=== PATIENT | female | born 1955 | race Caucasian/White ===

== ENCOUNTER 2018-04-25 17:11 | Emergency (ER) | payer MEDICARE, MEDICAID ==
[2018-04-25 18:02] LABS: ABS Basophils 0.1 10^3/ul (0-0.2); ABS Eosinophils 0.1 10^3/ul (0-0.6); ABS Lymphocytes 1.9 10^3/ul (1.0-4.8); ABS Neutrophils 7.5 10^3/ul (1.5-7.7); ABS Nucleated RBC 0 10^3/ul; Eosinophil % 1.1 % (0-6); Hematocrit 35 % (35-47); Hemoglobin 11.8 g/dl (12.0-16.0); Lymphocyte % 17.7 % (25-47); Mean Corpuscular HGB Conc 34 g/dl (31-36); Mean Corpuscular Hemoglobin 30 pg (27-31); Mean Corpuscular Volume 89 fL (80-97); Mean Platelet Volume 9.3 um3 (7.4-10.4); Nucleated Red Blood Cells % 0; Platelet Count 120 10^3/ul (150-450); Red Cell Distribution Width 13 % (10.5-15); White Blood Count 10.6 10^3/ul (3.5-10.8)
--- NOTE | 2018-04-25 20:02 | ED ---
Psychiatric Complaint - HPI Summary HPI Summary: This is scribe Amilcar Davis documenting for attending Burak Romero MD. Patient is a 62 y/o F BIBA due to not taking medication. Patient stays at [facility] and has not been taking her medications for the past five days according to EMS. When asked why, she responds, "I forgot to buy them ". Staff called ambulance today. Patient is reported to have not been eating food as well. When patient is asked why she is here, she states "I'm here because of feeling dizzy". She also claims her father drove her to the hospital. SI and HI are denied. On triage, pain is denied and nothing is noted to aggravate/alleviate symptoms. Home medications and allergies are reviewed. - History Of Current Complaint Chief Complaint: EDMentalHealth Time Seen by Provider: 04/25/18 17:28 Hx Obtained From: Patient, EMS Onset/Duration: Lasting Days - no medication for past 5 days Timing: Days - no medication for past 5 days Severity Currently: None - pain is denied Aggravating Factor(s): Nothing Alleviating Factor(s): Nothing Has Suicidal: Denies: Thoughts Has Homicidal: Denies: Thoughts - Allergies/Home Medications Allergies/Adverse Reactions: Allergies Allergy/AdvReac Type Severity Reaction Status Date / Time No Known Allergies Allergy Verified 04/25/18 17:47 Home Medications: Home Medications Acetaminophen [Acetaminophen Extra Strength] 500 mg PO Q4H PRN 04/25/18 [ History Confirmed 04/25/18] Buspirone HCl 10 mg PO DAILY 04/25/18 [History Confirmed 04/25/18] CloZAPine TAB* 300 mg PO BEDTIME 04/25/18 [History Confirmed 04/25/18] Ferrous Sulfate [Feosol] 1 tab PO DAILY 04/25/18 [History Confirmed 04/25/18] [place] Carbonate 1 cap PO BEDTIME 04/25/18 [History Confirmed 04/25/18] Loperamide HCl [Anti-Diarrheal] 15 ml PO SEE INSTRUCTIONS PRN 04/25/18 [History Confirmed 04/25/18] Multivitamin [Daily Multiple Vitamin] 1 tab PO DAILY 04/25/18 [History Confirmed 04/25/18] Nystatin CREAM* [Nystatin Cream*] 1 applic TOPICAL Q6H 04/25/18 [History Confirmed 04/25/18] Nystatin SUSPENSION* 1 teasp PO Q6H 04/25/18 [History Confirmed 04/25/18] Oxymetazoline 0.05% NASAL SPR* [Afrin 0.05% NASAL SPRAY*] 2 spray BOTH NARES BID PRN 04/25/18 [History Confirmed 04/25/18] PMH/Surg Hx/FS Hx/Imm Hx Sensory History: Denies: Hx Legally Blind Psychiatric History: Reports: Hx Anxiety, Hx Depression Infectious Disease History: Unable to Obtain/Confirm Infectious Disease History: Denies: Traveled Outside the [place] in Last 30 Days - Family History Known Family History: Positive: Unknown - patient is a poor historian - Social History Alcohol Use: None Substance Use Type: Reports: None Smoking Status (MU): Never Smoked Tobacco Review of Systems Negative: Fever - on vitals, temperature is 98.3 F Positive: Other - decrease appetite Neurological: Other - Dizziness Positive: Other - POSITIVE: not taking medication for past five days NEGATIVE: SI, HI All Other Systems Reviewed And Are Negative: Yes Physical Exam - Summary Physical Exam Summary: Appearance: The patient is well-nourished in no acute distress and in no acute pain. Patient appears pale. Skin: The skin is warm and dry and skin color reflects adequate perfusion. HEENT: The head is normocephalic and atraumatic. The pupils are equal and reactive. The conjunctivae are clear and without drainage. Nares are patent and without drainage. Mouth reveals dry mucous membranes and the throat is without erythema and exudate. The external ears are intact. The ear canals are patent and without drainage. The tympanic membranes are intact. Neck: The neck is supple with full range of motion and non-tender. There are no carotid bruits. There is no neck vein distension. Respiratory: Chest is non-tender. Lungs are clear to auscultation and breath sounds are symmetrical and equal. Cardiovascular: Heart is regular rate and rhythm. There is no murmur or rub auscultated. There is no peripheral edema and pulses are symmetrical and equal. Abdomen: The abdomen is soft and non-tender. There are normal bowel sounds heard in all four quadrants and there is no organomegaly palpated. Musculoskeletal: There is no back tenderness noted. Extremities are non-tender with full range of motion. There is good capillary refill. There is no peripheral edema or calf tenderness elicited. Neurological: Patient is alert and oriented to person, place and time. The patient has symmetrical motor strength in all four extremities. Cranial nerves are grossly intact. Deep tendon reflexes are symmetrical and equal in all four extremities. Psychiatric: The patient has a flat affect and does not exhibit any anxiety. Triage Information Reviewed: Yes Vital Signs On Initial Exam: Initial Vitals Temp Pulse Resp BP Pulse Ox 98.3 F 83 14 158/96 99 04/25/18 17:33 04/25/18 17:33 04/25/18 17:33 04/25/18 17:33 04/25/18 17:33 Vital Signs Reviewed: Yes Diagnostics - Vital Signs Vital Signs Temp Pulse Resp BP Pulse Ox 04/25/18 17:33 98.3 F 83 14 158/96 99 - Laboratory Lab Results: Lab Results 04/25/18 04/25/18 Range/Units 17:57 17:57 WBC 10.6 (3.5-10.8) 10^3/ul RBC 3.90 L (4.00-5.40) 10^6/ul Hgb 11.8 L (12.0-16.0) g/dl Hct 35 (35-47) % MCV 89 (80-97) fL MCH 30 (27-31) pg MCHC 34 (31-36) g/dl RDW 13 (10.5-15) % Plt Count 120 L (150-450) 10^3/ul MPV 9.3 (7.4-10.4) um3 Neut % (Auto) 71.5 (38-83) % Lymph % (Auto) 17.7 L (25-47) % [place] % (Auto) 9.1 H (0-7) % Eos % (Auto) 1.1 (0-6) % Baso % (Auto) 0.6 (0-2) % Absolute Neuts (auto) 7.5 (1.5-7.7) 10^3/ul Absolute Lymphs (auto) 1.9 (1.0-4.8) 10^3/ul Absolute Monos (auto) 1.0 H (0-0.8) 10^3/ul Absolute Eos (auto) 0.1 (0-0.6) 10^3/ul Absolute Basos (auto) 0.1 (0-0.2) 10^3/ul Absolute Nucleated RBC 0 10^3/ul Nucleated RBC % 0 Sodium 142 (135-145) mmol/L Potassium 3.8 (3.5-5.0) mmol/L Chloride 111 (101-111) mmol/L Carbon Dioxide 19 L (22-32) mmol/L Anion Gap 12 H (2-11) mmol/L BUN 24 (6-24) mg/dL Creatinine 2.67 H (0.51-0.95) mg/dL Est GFR ( Amer) 21.8 (>60) Est GFR (Non-Af Amer) 18.0 (>60) BUN/Creatinine Ratio 9.0 (8-20) Glucose 107 H (70-100) mg/dL Calcium 9.4 (8.6-10.3) mg/dL Total Bilirubin 0.70 (0.2-1.0) mg/dL AST 16 (13-39) U/L ALT 8 (7-52) U/L Alkaline Phosphatase 72 (34-104) U/L Total Protein 7.1 (6.4-8.9) g/dL Albumin 4.3 (3.2-5.2) g/dL Globulin 2.8 (2-4) g/dL Albumin/Globulin Ratio 1.5 (1-3) TSH 3.10 (0.34-5.60) mcIU/mL Salicylates < 2.50 (<30) mg/dL Acetaminophen < 15 mcg/mL Serum Alcohol < 10 (<10) mg/dL Result Diagrams: 04/25/18 17:57 04/25/18 17:57 Lab Statement: Any lab studies that have been ordered have been reviewed, and results considered in the medical decision making process. Re-Evaluation - Re-Evaluation First Eval Re-Evaluation Time: 19:49 Comment: Patient was medically cleared and taken to [facility] for MHE. Course/Dx - Course Course Of Treatment: Ms. Pedraza was sent over from [place] with a concern that she not taking her medications. She was medically cleared and underwent a mental health evaluation in the flex unit. They felt that she was safe for discharge and arranged for follow-up. - Differential Dx/Clinical Impression Provider Diagnosis: Psychosis Discharge - Sign-Out/Discharge Documenting (check all that apply): Sign-Out Patient Signing out patient TO: Jersey Garvey Receiving patient FROM: Burak L Nick - Discharge Plan Disposition: HOME Patient Education Materials: Schizoaffective Disorder (ED) Referrals: Ivan KING,Jerry Cook [Medical Doctor] - (Please follow up with Tino Grace, as soon as possible.) Shimon Beckett MD [Primary Care Provider] - - Billing Disposition and Condition Disposition: Home
[2018-04-25 20:13] VITALS: BP 159/100
[2018-04-25 21:20] LABS: Lithium < 0.10 mmol/L (0.6-1.2)
== END 2018-04-25 22:04 | disposition home or self-care (01) ==
LOC: ED 17:11
DX: F29 Unspecified psychosis not due to a substance or known physiological condition (principal)
CPT/HCPCS: 36415; 80053; 80178; 80320; 80329; 84443; 85025; 93005; 99284; G0480

== ENCOUNTER 2018-04-26 08:00 | Inpatient (IN) | payer MEDICARE, BC, MEDICAID ==
--- NOTE | 2018-04-26 08:26 | ED ---
Psychiatric Complaint - HPI Summary HPI Summary: This is rbea Stallings documenting for attending Antonino Florez MD. This patient is a 62 year old F presenting to [facility] from [facility] for a MHE. Pt was seen in the ED yesterday and received a MHE before being discharged home. She has a history of chronic depression and is tearful during exam. She states she is feeling better but almost . - History Of Current Complaint Chief Complaint: EDMentalHealth Time Seen by Provider: 04/26/18 08:03 Hx Obtained From: Patient Onset/Duration: Still Present Timing: Constant Severity Initially: Moderate Severity Currently: Moderate Character: Depressed Related History: Positive For: Prior Psychiatric Issues - Allergies/Home Medications Allergies/Adverse Reactions: Allergies Allergy/AdvReac Type Severity Reaction Status Date / Time No Known Allergies Allergy Verified 04/25/18 17:47 PMH/Surg Hx/FS Hx/Imm Hx Sensory History: Denies: Hx Legally Blind Opthamlomology History: Denies: Hx Legally Blind Psychiatric History: Reports: Hx Anxiety, Hx Depression Infectious Disease History: No Infectious Disease History: Denies: Traveled Outside the [place] in Last 30 Days - Family History Known Family History: Positive: Unknown - patient is a poor historian - Social History Alcohol Use: None Substance Use Type: Reports: None Smoking Status (MU): Never Smoked Tobacco Review of Systems Negative: Fever Positive: Depressed All Other Systems Reviewed And Are Negative: Yes Physical Exam - Summary Physical Exam Summary: Appearance: Well appearing, no pain distress Skin: warm, dry, reflects adequate perfusion Head/face: normal Eyes: EOMI, BESS ENT: clear nasal discharge Neck: supple, non-tender Respiratory: CTA, breath sounds present Cardiovascular: RRR, pulses symmetrical Abdomen: non-tender, soft Bowel Sounds: present Musculoskeletal: normal, strength/ROM intact Neuro: normal, sensory motor intact, A&Ox3 Psych: flat affect, withdrawn, Triage Information Reviewed: Yes Vital Signs On Initial Exam: Initial Vitals Temp Pulse Resp BP Pulse Ox 98.5 F 75 14 150/82 100 04/26/18 08:01 04/26/18 08:01 04/26/18 08:01 04/26/18 08:01 04/26/18 08:01 Vital Signs Reviewed: Yes Diagnostics - Vital Signs Vital Signs Temp Pulse Resp BP Pulse Ox 04/26/18 08:01 98.5 F 75 14 150/82 100 - Laboratory Lab Statement: Any lab studies that have been ordered have been reviewed, and results considered in the medical decision making process. Re-Evaluation - Re-Evaluation First Eval Re-Evaluation Time: 14:15 Change: Unchanged Comment: I discussed patient care with mental health instant potato processing supervisor and they would like to admit the patient. She will be held in the flex until a bed is available in the morning. Course/Dx - Course Course Of Treatment: Patient returns after mental health evaluation performed yesterday. She was cleared been but is back already this morning. She is medically cleared given laboratories just yesterday. Mental health performed evaluation has decided to hold her overnight for reevaluation of the morning and likely admission. - Differential Dx/Clinical Impression Provider Diagnosis: Schizoaffective disorder, unspecified condition Discharge - Sign-Out/Discharge Documenting (check all that apply): Sign-Out Patient Signing out patient TO: Jersey Garvey - Awaiting admission - Discharge Plan Condition: Stable Referrals: Shimon Beckett MD [Primary Care Provider] - - Billing Disposition and Condition Condition: STABLE
[2018-04-26 22:20] LABS: Urine Appearance Clear; Urine Blood 1+ (Negative); Urine Color Straw; Urine Ketones Negative (Negative); Urine Protein Negative (Negative); Urine Red Blood Cell Trace(0-2/hpf) (Absent); Urine Specific Gravity 1.002 (1.010-1.030); Urine Urobilinogen Negative (Negative); Urine White Blood Cell 1+(6-10/hpf) (Absent)
[2018-04-26 23:37] LABS: ABS Basophils 0 10^3/ul (0-0.2); ABS Eosinophils 0.1 10^3/ul (0-0.6); ABS Lymphocytes 2.1 10^3/ul (1.0-4.8); ABS Nucleated RBC 0 10^3/ul; Eosinophil % 1.4 % (0-6); Hematocrit 35 % (35-47); Hemoglobin 12.1 g/dl (12.0-16.0); Lymphocyte % 22.8 % (25-47); Mean Corpuscular HGB Conc 34 g/dl (31-36); Mean Corpuscular Hemoglobin 30 pg (27-31); Mean Corpuscular Volume 89 fL (80-97); Mean Platelet Volume 9.5 um3 (7.4-10.4); Nucleated Red Blood Cells % 0.5; Platelet Count 121 10^3/ul (150-450); Red Blood Count 3.98 10^6/ul (4.00-5.40); Red Cell Distribution Width 13 % (10.5-15); White Blood Count 9.3 10^3/ul (3.5-10.8)
[2018-04-26 23:52] LABS: EGFR Non-African American 20.7 (>60)
[2018-04-27] MEDS ORDERED: Levofloxacin TAB* 250 MG PO ONE (00:15)
--- NOTE | 2018-04-27 01:16 | ED ---
Progress - Progress Note Progress Note: This is reba Childress documenting for Dr. Jersey Garvey MD. Pt was signed out from Dr. Florez awaiting admission. Mental health it desktop support technician worried about pts kidney function and elevated creatinine from yesterday, so asked for repeat kidney function test. Creatinine today of 2.37 is slightly lower than yesterdays, however pts last creatinine from 6 years ago was 1.7. Renal US showed renal disease which appears to be chronic. Renal US impression was echogenic kidneys bilaterally suggesting medical renal disease, small bilateral renal cysts, and no hydronephrosis. ED Physician reviewed this report and agrees. Pt was found to have UTI treated with levaquin. Pt admitted to [facility] with medical consultation for kidney function. Pt signed out to Dr. Weiner for [facility] hold. Re-Evaluation - Re-Evaluation First Eval Re-Evaluation Time: 14:15 Change: Unchanged Comment: I discussed patient care with mental health it desktop support technician and they would like to admit the patient. She will be held in the flex until a bed is available in the morning. Course/Dx - Course Course Of Treatment: Pt was signed out from Dr. Florez awaiting admission. Mental health it desktop support technician worried about pts kidney function and elevated creatinine from yesterday, so asked for repeat kidney function test. Creatinine today of 2.37 is slightly lower than yesterdays, however pts last creatinine from 6 years ago was 1.7. Renal US showed renal disease which appears to be chronic. Renal US impression was echogenic kidneys bilaterally suggesting medical renal disease, small bilateral renal cysts, and no hydronephrosis. ED Physician reviewed this report and agrees. Pt was found to have UTI treated with levaquin. Pt admitted to [facility] with medical consultation for kidney function. Pt signed out to Dr. Weiner for [facility] hold. - Diagnoses Provider Diagnoses: Schizoaffective disorder, unspecified condition Discharge - Sign-Out/Discharge Documenting (check all that apply): Patient Departure - Admit Signing out patient TO: Sha Weiner Receiving patient FROM: Antonino Florez - Discharge Plan Condition: Stable Disposition: ADMITTED TO [facility] Referrals: Shimon Beckett MD [Primary Care Provider] -
--- NOTE | 2018-04-27 07:14 | UC ---
- Progress Note Progress Note: This patient was signed out from Dr. Garvey to Dr. Weiner, awaiting MHE. MHE done by Dr. Camejo at 0909. The patient will be admitted with dx of schizoaffective disorder. Patient understands and agrees. Re-Evaluation - Re-Evaluation First Eval Re-Evaluation Time: 14:15 Change: Unchanged Comment: I discussed patient care with mental health [facility] nurse and they would like to admit the patient. She will be held in the flex until a bed is available in the morning. Course/Dx - Diagnoses Provider Diagnoses: Schizoaffective disorder, unspecified condition Discharge - Sign-Out/Discharge Documenting (check all that apply): Patient Departure - Discharge Plan Condition: Stable Disposition: ADMITTED TO [facility] Referrals: Shimon Beckett MD [Primary Care Provider] -
--- NOTE | 2018-04-27 09:05 | RAD ---
INDICATION: Acute renal failure COMPARISON: None TECHNIQUE: Longitudinal and transverse scans of the kidneys were obtained. FINDINGS: Kidneys: The kidneys are echogenic consistent with medical renal disease. No hydronephrosis or calculi are seen. There is a cyst in the upper pole on the right measuring 2.5 x 2.0 x 2.7 cm. In the mid to lower pole is a indeterminate hypoechoic structure measuring 2.7 x 1.9 x 1.8 cm. There are several tiny cystic entities in the left kidney. The right kidney measures 9.7 x 4.8 x 5.0 cm and the left kidney 9.6 x 4.0 x 5.1 cm. Other: None IMPRESSION: MEDICAL RENAL DISEASE. RENAL CYST. INDETERMINATE HYPOECHOIC STRUCTURE LOWER POLE RIGHT KIDNEY. SUGGEST 3 MONTH FOLLOW-UP OR PREFERABLY CORRELATION WITH ANY PRIOR IMAGING IF AVAILABLE.
[2018-04-27] MEDS ORDERED: Al Hydrox/Mg Hydrox/Simet LIQ* 30 ML UDC PO PRN (12:25)
[2018-04-27] MEDS ORDERED: Acetaminophen TAB* 325 MG PO PRN (12:25)
[2018-04-27] MEDS ORDERED: Loperamide LIQ* 2 MG/10 ML UDC PO PRN (12:29)
--- NOTE | 2018-04-27 14:35 | PN ---
ED Flex Patient Progress Note Date of Service: 04/27/18 Subjective: Patient continues to demonstrate lack of self-care as evidenced by limited PO intake and refusal to accept antibiotic therapy for significant UTI. Patient uncooperative and disorganized. Objective: aging white female; appears older than stated age; distractable and disorganized Assessment: Schizophrenia Plan: Admit to [facility] on involuntary 9.39 legal status pending female bed availability. Vital Signs Temp Pulse Resp BP Pulse Ox 97.9 F 69 16 119/99 100 04/27/18 09:04 04/27/18 09:04 04/27/18 09:04 04/27/18 09:04 04/26/18 23:45 Lab Results - Entire Visit 04/26/18 04/26/18 04/26/18 23:08 23:08 21:40 WBC 9.3 RBC 3.98 L Hgb 12.1 Hct 35 MCV 89 MCH 30 MCHC 34 RDW 13 Plt Count 121 L MPV 9.5 Neut % (Auto) 65.0 Lymph % (Auto) 22.8 L [place] % (Auto) 10.4 H Eos % (Auto) 1.4 Baso % (Auto) 0.4 Absolute Neuts (auto) 6.0 Absolute Lymphs (auto) 2.1 Absolute Monos (auto) 1.0 H Absolute Eos (auto) 0.1 Absolute Basos (auto) 0 Absolute Nucleated RBC 0 Nucleated RBC % 0.5 ESR 31 H Sodium 141 Potassium 3.8 Chloride 111 Carbon Dioxide 22 Anion Gap 8 BUN 24 Creatinine 2.37 H Est GFR ( Amer) 25.0 Est GFR (Non-Af Amer) 20.7 BUN/Creatinine Ratio 10.1 Glucose 106 H Calcium 9.5 Magnesium 2.1 Total Bilirubin 0.50 AST 19 ALT 10 Alkaline Phosphatase 73 C-Reactive Protein < 1.00 Total Protein 6.9 Albumin 4.1 Globulin 2.8 Albumin/Globulin Ratio 1.5 TSH 2.43 Urine Color Straw Urine Appearance Clear Urine pH 5.0 Ur Specific [place] 1.002 L Urine Protein Negative Urine Ketones Negative Urine Blood 1+ A Urine Nitrate Negative Urine Bilirubin Negative Urine Urobilinogen Negative Ur Leukocyte Esterase 3+ A Urine WBC (Auto) 1+(6-10/hpf) A Urine RBC (Auto) Trace(0-2/hpf) Ur Squamous Epith Cells Present A Urine Bacteria Absent Urine Glucose Negative
[2018-04-27] MEDS ORDERED: CloZAPine TAB* 100 MG TAB PO SCH (21:00)
[2018-04-27] MEDS ORDERED: Lithium Carbonate CAP 150 MG ** CAPSULE PO SCH (21:00)
[2018-04-27] MEDS: Nystatin CREAM* 30 GM TOPICAL SCH (22:03)
[2018-04-27] MEDS ORDERED: Naloxone* 0.4 MG/ML 10 ML VIAL ONE (23:35)
[2018-04-27 23:38] LABS: ABS Basophils 0 10^3/ul (0-0.2); ABS Eosinophils 0.1 10^3/ul (0-0.6); ABS Lymphocytes 1.9 10^3/ul (1.0-4.8); ABS Monocytes 0.7 10^3/ul (0-0.8); ABS Neutrophils 6.1 10^3/ul (1.5-7.7); ABS Nucleated RBC 0 10^3/ul; Eosinophil % 1.1 % (0-6); Hematocrit 38 % (35-47); Hemoglobin 12.9 g/dl (12.0-16.0); Lymphocyte % 21.1 % (25-47); Mean Corpuscular HGB Conc 34 g/dl (31-36); Mean Corpuscular Hemoglobin 30 pg (27-31); Mean Corpuscular Volume 89 fL (80-97); Mean Platelet Volume 10.1 um3 (7.4-10.4); Nucleated Red Blood Cells % 0.1; Platelet Count 107 10^3/ul (150-450); Red Blood Count 4.27 10^6/ul (4.00-5.40); Red Cell Distribution Width 13 % (10.5-15); White Blood Count 8.8 10^3/ul (3.5-10.8)
[2018-04-27 23:39] LABS: INR 1.23 (0.77-1.02)
[2018-04-27] MEDS ORDERED: NS 0.9% 1000 ML* 1,000 ML IV SCH (23:45)
[2018-04-28] MEDS ORDERED: Naloxone* 0.4 MG/ML 1 ML VIAL IV ONE (00:27)
[2018-04-28] MEDS ORDERED: Acetaminophen SUPP* 650 MG SUPP PR PRN (00:29)
[2018-04-28 00:57] LABS: EGFR Non-African American 21.3 (>60)
[2018-04-28] MEDS ORDERED: Naloxone Nasal Spray* 4 MG/0.1 ML NASAL.SPR INTRANASAL ONE (02:41)
[2018-04-28] MEDS: Nystatin CREAM* 30 GM TOPICAL SCH ×4 (03:32→18:00)
--- NOTE | 2018-04-28 06:03 | HP ---
H&P (Free Text) History and Physical: PCP: Mary Beckett MD Date/Time: 04/27/2018 2300 Reason for Consult: AMS HPI: Mrs Pedraza is a 62YO female who presented to [facility] via EMS on 2017 from [facility] for a complaint of 'not taking her medications ' for the previous 5 days. Additionally, it was reported she had had poor PO intake. She claimed she was there due to feeling dizzy and that her father had brought her in. She was cleared medically and a MHE performed leading to discharge back to [facility]. She then represented to [facility] ED via EMS from [facility] 04/26/2018 being tearful and claiming to have "almost ". Based on her labs the day before, she was again cleared medically after recheck of her renal function and performance of a renal US showing chronic renal disease. She was then held until the morning of the wherein she was admitted to the [facility] for further evaluation and medication re-initiation for schizophrenia. Dr Camejo , psychiatry's note of 04/27 notes her to lack self-care by refusing ABX for UTI and to be uncooperative and disorganized. Per [facility] staff, she refused to give any further history. In fact, no further information can be found in [facility]. She was restarted on lithium 150mg PO and clozapine 300mg (presumably from a med list obtained from [facility]) of which she took the first doses at ~2200. She was then found slumped, minimally responsive in a chair at 2240. There was no witness convulsion or other issue. A CAT call was made and upon my arrival, she was slouched in a chair response via purposeful withdrawal to noxious stimuli. She did not open her eyes. Vitals were stable with blood pressure in the 120/70s range, pulse in the 80s, RR high teens, and saO2 in the high 90s. Neurologic exam was non-focal. Pupils were constricted. She had had no visitors. A dante aparicio was called for abrupt decline of mental status and she was transferred to ICU. CT was read as negative. Lab values were relatively unremarkable excepting an elevated prolactin which could potentially be seen post-seizure. PMedHx schizophrenia depression Ambulatory Orders Acetaminophen [Acetaminophen Extra Strength] 500 mg PO Q4H PRN 04/25/18 Buspirone HCl 10 mg PO DAILY 04/25/18 CloZAPine TAB* 300 mg PO BEDTIME 04/25/18 Ferrous Sulfate [Feosol] 1 tab PO DAILY 04/25/18 [place] Carbonate 1 cap PO BEDTIME 04/25/18 Loperamide HCl [Anti-Diarrheal] 15 ml PO SEE INSTRUCTIONS PRN 04/25/18 Multivitamin [Daily Multiple Vitamin] 1 tab PO DAILY 04/25/18 Nystatin CREAM* [Nystatin Cream*] 1 applic TOPICAL Q6H 04/25/18 Nystatin SUSPENSION* 1 teasp PO Q6H 04/25/18 Oxymetazoline 0.05% NASAL SPR* [Afrin 0.05% NASAL SPRAY*] 2 spray BOTH NARES BID PRN 04/25/18 Allergies No Known Allergies Allergy (Verified 04/25/18 17:47) PSurgHx unobtainable SocHx: unobtainable FamHx: unobtainable ROS: unobtainable vitals: Vital Signs Temp 35.8 C 04/28/18 05:00 Pulse 94 04/28/18 05:00 Resp 16 04/28/18 05:00 BP 109/68 04/28/18 05:00 Pulse Ox 98 04/28/18 05:00 Intake & Output 04/27/18 04/27/18 04/28/18 11:59 23:59 11:59 Output Total 605 Balance -605 Weight 68.039 kg 57.606 kg Output: Urine 100 Ferreira 455 Residual 50 Ferreira 16 Fr Temperature 50 Probe Constitutional: NAD, normally developed, well-nourished white female HEENM: atraumatic; sclera/conjunctiva: anicteric/normal; blephara: normal; fundi : unable to visualize 2nd constricted pupils; hearing: unable to assess; oropharynx: clear, mucosa moist Neck: soft tissue: no nuchal rigidity; thyroid: normal Pulmonary: clear to auscultation bilaterally, good aeration, no accessory muscle use CV: RR/RR, normal S1S2, no carotid bruit, no jugular venous distention, 2+ B DP/ PT, no edema Abdominal: soft, non-distended, non-tender, no rebound/guarding/rigidity, normoactive bowel sounds, no hepatosplenomegaly or masses, no costovertebral angle tenderness Musculoskeletal: general: grossly intact, non-tender; gait: currently non- ambulatory Integumental: generally dusky in appearance without rash or lesion of exposed skin Neurological cranial nerves II: unable to assessvisual gilmore III/IV/: symmetric light reflex, unable to assess EOMI, pupils 1mm/non- reactive V: unable to assessfacial sensation or mastication VII: intact facial symmetry, unable to assess eye clench VIII: unable to assess hearing IX/X: unable to assess palatal motion, reduced but present gag reflex, unable to assess for dysarthria XI: unable to assess shoulder shrug, no trapezius atrophy XII: unable to assess tongue protrusion or voice articulation motor: unknown handed; purposefully withdraws/moves extremities x4 to noxious stimuli coordination finger/nose: unable to assess heal/manriquez: unable to assess dysdiadochokinesia: unable to assess sensory crude touch: unable to assess pinprick: unable to assess vibration: unable to assess proprioception: unable to assess DTRs biceps: 1+ B triceps: 1+ B brachioradialis: 1+ B patellar: 1+ B Achilles: 1+ B Babinski: Psychiatric orientation: GCS 6 affect: lethargic mood: acquiescent eye contact: absent content: absent memory: unable to assess responses: withdraws purposefully to noxious stimuli insight: poor/absent Testing: Lab Results 04/26/18 04/26/18 04/26/18 Range/Units 21:40 23:08 23:08 WBC 9.3 (3.5-10.8) 10^3/ul RBC 3.98 L (4.00-5.40) 10^6/ul Hgb 12.1 (12.0-16.0) g/dl Hct 35 (35-47) % MCV 89 (80-97) fL MCH 30 (27-31) pg MCHC 34 (31-36) g/dl RDW 13 (10.5-15) % Plt Count 121 L (150-450) 10^3/ul MPV 9.5 (7.4-10.4) um3 Neut % (Auto) 65.0 (38-83) % Lymph % (Auto) 22.8 L (25-47) % [place] % (Auto) 10.4 H (0-7) % Eos % (Auto) 1.4 (0-6) % Baso % (Auto) 0.4 (0-2) % Absolute Neuts (auto) 6.0 (1.5-7.7) 10^3/ul Absolute Lymphs (auto) 2.1 (1.0-4.8) 10^3/ul Absolute Monos (auto) 1.0 H (0-0.8) 10^3/ul Absolute Eos (auto) 0.1 (0-0.6) 10^3/ul Absolute Basos (auto) 0 (0-0.2) 10^3/ul Absolute Nucleated RBC 0 10^3/ul Nucleated RBC % 0.5 ESR 31 H (0-30) mm/Hr INR (Anticoag Therapy) (0.77-1.02) APTT (26.0-36.3) seconds ABG pH (7.35-7.45) ABG pCO2 (35-45) mmHg ABG pO2 (80-100) mmHg ABG HCO3 (19-31) mmol/L ABG O2 Saturation (95-98) % ABG Base Excess (-2.0-2.0) Sodium 141 (135-145) mmol/L Potassium 3.8 (3.5-5.0) mmol/L Chloride 111 (101-111) mmol/L Carbon Dioxide 22 (22-32) mmol/L Anion Gap 8 (2-11) mmol/L BUN 24 (6-24) mg/dL Creatinine 2.37 H (0.51-0.95) mg/dL Est GFR ( Amer) 25.0 (>60) Est GFR (Non-Af Amer) 20.7 (>60) BUN/Creatinine Ratio 10.1 (8-20) Glucose 106 H (70-100) mg/dL Lactic Acid (0.5-2.0) mmol/L Calcium 9.5 (8.6-10.3) mg/dL Magnesium 2.1 (1.9-2.7) mg/dL Total Bilirubin 0.50 (0.2-1.0) mg/dL AST 19 (13-39) U/L ALT 10 (7-52) U/L Alkaline Phosphatase 73 (34-104) U/L Ammonia (16-53) mcmol/L C-Reactive Protein < 1.00 (<8.01) mg/L Total Protein 6.9 (6.4-8.9) g/dL Albumin 4.1 (3.2-5.2) g/dL Globulin 2.8 (2-4) g/dL Albumin/Globulin Ratio 1.5 (1-3) TSH 2.43 (0.34-5.60) mcIU/mL Prolactin (1.0-25.0) ng/mL Urine Color Straw Urine Appearance Clear Urine pH 5.0 (5-9) Ur Specific [place] 1.002 L (1.010-1.030) Urine Protein Negative (Negative) Urine Ketones Negative (Negative) Urine Blood 1+ A (Negative) Urine Nitrate Negative (Negative) Urine Bilirubin Negative (Negative) Urine Urobilinogen Negative (Negative) Ur Leukocyte Esterase 3+ A (Negative) Urine WBC (Auto) 1+(6-10/hpf) A (Absent) Urine RBC (Auto) Trace(0-2/hpf) (Absent) Ur Squamous Epith Cells Present A (Absent) Urine Bacteria Absent (Absent) Urine Glucose Negative (Negative) Urine Opiates Screen (None Detect) Ur Barbiturates Screen (None Detect) Ur Phencyclidine Scrn (None Detect) Ur Amphetamines Screen (None Detect) U Benzodiazepines Scrn (None Detect) Urine Cocaine Screen (None Detect) U Cannabinoids Screen (None Detect) 04/27/18 04/27/18 04/27/18 Range/Units 23:11 23:11 23:11 WBC 8.8 (3.5-10.8) 10^3/ul RBC 4.27 (4.00-5.40) 10^6/ul Hgb 12.9 (12.0-16.0) g/dl Hct 38 (35-47) % MCV 89 (80-97) fL MCH 30 (27-31) pg MCHC 34 (31-36) g/dl RDW 13 (10.5-15) % Plt Count 107 L (150-450) 10^3/ul MPV 10.1 (7.4-10.4) um3 Neut % (Auto) 69.6 (38-83) % Lymph % (Auto) 21.1 L (25-47) % [place] % (Auto) 7.9 H (0-7) % Eos % (Auto) 1.1 (0-6) % Baso % (Auto) 0.3 (0-2) % Absolute Neuts (auto) 6.1 (1.5-7.7) 10^3/ul Absolute Lymphs (auto) 1.9 (1.0-4.8) 10^3/ul Absolute Monos (auto) 0.7 (0-0.8) 10^3/ul Absolute Eos (auto) 0.1 (0-0.6) 10^3/ul Absolute Basos (auto) 0 (0-0.2) 10^3/ul Absolute Nucleated RBC 0 10^3/ul Nucleated RBC % 0.1 ESR (0-30) mm/Hr INR (Anticoag Therapy) 1.23 H (0.77-1.02) APTT (26.0-36.3) seconds ABG pH (7.35-7.45) ABG pCO2 (35-45) mmHg ABG pO2 (80-100) mmHg ABG HCO3 (19-31) mmol/L ABG O2 Saturation (95-98) % ABG Base Excess (-2.0-2.0) Sodium (135-145) mmol/L Potassium (3.5-5.0) mmol/L Chloride (101-111) mmol/L Carbon Dioxide (22-32) mmol/L Anion Gap (2-11) mmol/L BUN (6-24) mg/dL Creatinine (0.51-0.95) mg/dL Est GFR ( Amer) (>60) Est GFR (Non-Af Amer) (>60) BUN/Creatinine Ratio (8-20) Glucose (70-100) mg/dL Lactic Acid 0.8 (0.5-2.0) mmol/L Calcium (8.6-10.3) mg/dL Magnesium (1.9-2.7) mg/dL Total Bilirubin (0.2-1.0) mg/dL AST (13-39) U/L ALT (7-52) U/L Alkaline Phosphatase (34-104) U/L Ammonia (16-53) mcmol/L C-Reactive Protein (<8.01) mg/L Total Protein (6.4-8.9) g/dL Albumin (3.2-5.2) g/dL Globulin (2-4) g/dL Albumin/Globulin Ratio (1-3) TSH (0.34-5.60) mcIU/mL Prolactin (1.0-25.0) ng/mL Urine Color Urine Appearance Urine pH (5-9) Ur Specific [place] (1.010-1.030) Urine Protein (Negative) Urine Ketones (Negative) Urine Blood (Negative) Urine Nitrate (Negative) Urine Bilirubin (Negative) Urine Urobilinogen (Negative) Ur Leukocyte Esterase (Negative) Urine WBC (Auto) (Absent) Urine RBC (Auto) (Absent) Ur Squamous Epith Cells (Absent) Urine Bacteria (Absent) Urine Glucose (Negative) Urine Opiates Screen (None Detect) Ur Barbiturates Screen (None Detect) Ur Phencyclidine Scrn (None Detect) Ur Amphetamines Screen (None Detect) U Benzodiazepines Scrn (None Detect) Urine Cocaine Screen (None Detect) U Cannabinoids Screen (None Detect) 04/27/18 04/27/18 04/27/18 Range/Units 23:11 23:11 23:37 WBC (3.5-10.8) 10^3/ul RBC (4.00-5.40) 10^6/ul Hgb (12.0-16.0) g/dl Hct (35-47) % MCV (80-97) fL MCH (27-31) pg MCHC (31-36) g/dl RDW (10.5-15) % Plt Count (150-450) 10^3/ul MPV (7.4-10.4) um3 Neut % (Auto) (38-83) % Lymph % (Auto) (25-47) % [place] % (Auto) (0-7) % Eos % (Auto) (0-6) % Baso % (Auto) (0-2) % Absolute Neuts (auto) (1.5-7.7) 10^3/ul Absolute Lymphs (auto) (1.0-4.8) 10^3/ul Absolute Monos (auto) (0-0.8) 10^3/ul Absolute Eos (auto) (0-0.6) 10^3/ul Absolute Basos (auto) (0-0.2) 10^3/ul Absolute Nucleated RBC 10^3/ul Nucleated RBC % ESR (0-30) mm/Hr INR (Anticoag Therapy) (0.77-1.02) APTT 31.0 (26.0-36.3) seconds ABG pH 7.36 (7.35-7.45) ABG pCO2 30 L (35-45) mmHg ABG pO2 98 (80-100) mmHg ABG HCO3 19.1 (19-31) mmol/L ABG O2 Saturation 98.7 H (95-98) % ABG Base Excess -7.4 L (-2.0-2.0) Sodium 138 (135-145) mmol/L Potassium 3.7 (3.5-5.0) mmol/L Chloride 109 (101-111) mmol/L Carbon Dioxide 17 L (22-32) mmol/L Anion Gap 12 H (2-11) mmol/L BUN 27 H (6-24) mg/dL Creatinine 2.31 H (0.51-0.95) mg/dL Est GFR ( Amer) 25.8 (>60) Est GFR (Non-Af Amer) 21.3 (>60) BUN/Creatinine Ratio 11.7 (8-20) Glucose 137 H (70-100) mg/dL Lactic Acid (0.5-2.0) mmol/L Calcium 9.6 (8.6-10.3) mg/dL Magnesium (1.9-2.7) mg/dL Total Bilirubin 0.60 (0.2-1.0) mg/dL AST 43 H (13-39) U/L ALT 20 (7-52) U/L Alkaline Phosphatase 81 (34-104) U/L Ammonia (16-53) mcmol/L C-Reactive Protein (<8.01) mg/L Total Protein 7.2 (6.4-8.9) g/dL Albumin 4.2 (3.2-5.2) g/dL Globulin 3.0 (2-4) g/dL Albumin/Globulin Ratio 1.4 (1-3) TSH (0.34-5.60) mcIU/mL Prolactin 47.9 H (1.0-25.0) ng/mL Urine Color Urine Appearance Urine pH (5-9) Ur Specific [place] (1.010-1.030) Urine Protein (Negative) Urine Ketones (Negative) Urine Blood (Negative) Urine Nitrate (Negative) Urine Bilirubin (Negative) Urine Urobilinogen (Negative) Ur Leukocyte Esterase (Negative) Urine WBC (Auto) (Absent) Urine RBC (Auto) (Absent) Ur Squamous Epith Cells (Absent) Urine Bacteria (Absent) Urine Glucose (Negative) Urine Opiates Screen (None Detect) Ur Barbiturates Screen (None Detect) Ur Phencyclidine Scrn (None Detect) Ur Amphetamines Screen (None Detect) U Benzodiazepines Scrn (None Detect) Urine Cocaine Screen (None Detect) U Cannabinoids Screen (None Detect) 04/28/18 04/28/18 Range/Units 00:15 00:53 WBC (3.5-10.8) 10^3/ul RBC (4.00-5.40) 10^6/ul Hgb (12.0-16.0) g/dl Hct (35-47) % MCV (80-97) fL MCH (27-31) pg MCHC (31-36) g/dl RDW (10.5-15) % Plt Count (150-450) 10^3/ul MPV (7.4-10.4) um3 Neut % (Auto) (38-83) % Lymph % (Auto) (25-47) % [place] % (Auto) (0-7) % Eos % (Auto) (0-6) % Baso % (Auto) (0-2) % Absolute Neuts (auto) (1.5-7.7) 10^3/ul Absolute Lymphs (auto) (1.0-4.8) 10^3/ul Absolute Monos (auto) (0-0.8) 10^3/ul Absolute Eos (auto) (0-0.6) 10^3/ul Absolute Basos (auto) (0-0.2) 10^3/ul Absolute Nucleated RBC 10^3/ul Nucleated RBC % ESR (0-30) mm/Hr INR (Anticoag Therapy) (0.77-1.02) APTT (26.0-36.3) seconds ABG pH (7.35-7.45) ABG pCO2 (35-45) mmHg ABG pO2 (80-100) mmHg ABG HCO3 (19-31) mmol/L ABG O2 Saturation (95-98) % ABG Base Excess (-2.0-2.0) Sodium (135-145) mmol/L Potassium (3.5-5.0) mmol/L Chloride (101-111) mmol/L Carbon Dioxide (22-32) mmol/L Anion Gap (2-11) mmol/L BUN (6-24) mg/dL Creatinine (0.51-0.95) mg/dL Est GFR ( Amer) (>60) Est GFR (Non-Af Amer) (>60) BUN/Creatinine Ratio (8-20) Glucose (70-100) mg/dL Lactic Acid (0.5-2.0) mmol/L Calcium (8.6-10.3) mg/dL Magnesium (1.9-2.7) mg/dL Total Bilirubin (0.2-1.0) mg/dL AST (13-39) U/L ALT (7-52) U/L Alkaline Phosphatase (34-104) U/L Ammonia 43 (16-53) mcmol/L C-Reactive Protein (<8.01) mg/L Total Protein (6.4-8.9) g/dL Albumin (3.2-5.2) g/dL Globulin (2-4) g/dL Albumin/Globulin Ratio (1-3) TSH (0.34-5.60) mcIU/mL Prolactin (1.0-25.0) ng/mL Urine Color Urine Appearance Urine pH (5-9) Ur Specific [place] (1.010-1.030) Urine Protein (Negative) Urine Ketones (Negative) Urine Blood (Negative) Urine Nitrate (Negative) Urine Bilirubin (Negative) Urine Urobilinogen (Negative) Ur Leukocyte Esterase (Negative) Urine WBC (Auto) (Absent) Urine RBC (Auto) (Absent) Ur Squamous Epith Cells (Absent) Urine Bacteria (Absent) Urine Glucose (Negative) Urine Opiates Screen None detected (None Detect) Ur Barbiturates Screen None detected (None Detect) Ur Phencyclidine Scrn None detected (None Detect) Ur Amphetamines Screen None detected (None Detect) U Benzodiazepines Scrn None detected (None Detect) Urine Cocaine Screen None detected (None Detect) U Cannabinoids Screen None detected (None Detect) ECG, personally reviewed: sinus, no acute change CT brain WO, personally reviewed: IMPRESSION: 1. Mild atrophic change. 2. Bilateral maxillary sinus disease with suggestion of prior surgery on the right. 3. Otherwise negative noncontrast head CT. 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 ICU, no further recommendations dDx: seizure/post-ictal vs CVA vs catatonia vs issue regarding re-initiation of medications Neurologic GCS 6, uncertain etiology : no response to 4mg intra-nasa naloxone prior to establishment of IV : no response to 0.8mg IV naloxone post-IV : CT brain negative : neurochecks : EEG in AM : tincture of time : consider MRI brain WO and neurology consult if no improvement Cardiovascular no acute issues Pulmonary maintaining & protecting airway, no indication for intubation at this time Infectious Disease UA consistent with but not diagnostic of UTI, no ABX & follow CX no clinical or lab evidence of explanatory infectious burden Gastroenterology IV pantoprazole for GI prophylaxis Renal CKD stg 4 : avoid nephrotoxic agents Endocrine elevated prolactin 47.9, supportive of but not diagnostic of seizure EEG in AM Psychiatric Schizophrenia ? catatonia : psychiatry following from [facility] Lines peripheral IV x2 ferreira to gravity to monitor renal function, fluid status & prevent skin breakdown Admission Rational: inpatient to ICU for abrupt unexplained alteration of conciousness DVTp: SCDs Code Status: full HCP: unable to confirm Critical Care time: 145minutes with >50% spent at the bedside obtaining a history from [facility] staff, performing the examination, arranging transfer, serial re-evaluations; remainder spent reviewing labs/radiology exams/medica record, documentation
[2018-04-28 06:21] LABS: ABS Basophils 0 10^3/ul (0-0.2); ABS Eosinophils 0.1 10^3/ul (0-0.6); ABS Lymphocytes 2.2 10^3/ul (1.0-4.8); ABS Monocytes 0.8 10^3/ul (0-0.8); ABS Neutrophils 5.4 10^3/ul (1.5-7.7); ABS Nucleated RBC 0 10^3/ul; Eosinophil % 1.5 % (0-6); Hematocrit 32 % (35-47); Hemoglobin 11.2 g/dl (12.0-16.0); Lymphocyte % 25.5 % (25-47); Mean Corpuscular HGB Conc 35 g/dl (31-36); Mean Corpuscular Hemoglobin 31 pg (27-31); Mean Corpuscular Volume 88 fL (80-97); Mean Platelet Volume 8.9 um3 (7.4-10.4); Nucleated Red Blood Cells % 0; Platelet Count 93 10^3/ul (150-450); Red Blood Count 3.63 10^6/ul (4.00-5.40); Red Cell Distribution Width 13 % (10.5-15); White Blood Count 8.5 10^3/ul (3.5-10.8)
[2018-04-28 06:33] LABS: EGFR Non-African American 22.8 (>60)
--- NOTE | 2018-04-28 07:59 | RAD ---
INDICATION: Code walls COMPARISON: None TECHNIQUE: Noncontrast axial source images were acquired from the skull base to the vertex. FINDINGS: Ventricles/sulci: There is moderate cortical atrophy with compensatory dilatation of the CSF spaces. Brain parenchyma: There is no focal parenchymal finding, evidence of intracranial mass, or intracranial mass effect. Intracranial hemorrhage:None. Extra-axial spaces: There are no abnormal extra axial fluid collections or evidence of extra-axial mass. Calvarium: There is no calvarial fracture or other calvarial abnormality. Scalp: There is no evidence of scalp or extracalvarial soft tissue abnormality. Paranasal sinuses/mastoid: There are mucous retention cysts or polyps in each maxillary antra. There is right maxillary antral sinus disease Other: None. IMPRESSION: Cortical atrophy. No acute intracranial findings
[2018-04-28] MEDS: Ferrous Sulfate TAB* 325 MG PO SCH (08:42)
[2018-04-28] MEDS: busPIRone TAB* 10 MG PO SCH (08:42)
[2018-04-28] MEDS: NS 0.9% 1000 ML* 1,000 ML IV SCH (08:47)
[2018-04-28] MEDS: Pantoprazole IV* 40 MG IV SCH (08:57)
[2018-04-28] MEDS ORDERED: Prenatal Vitamin TAB PO SCH (09:00)
[2018-04-28] MEDS ORDERED: NS 0.9% 1000 ML* 1,000 ML IV SCH (10:45)
--- NOTE | 2018-04-28 10:53 | PN ---
Date of Service: 04/28/18 Critical Care Services: 62F with schizoprenia and depression admitted overnight after decreased mental status. 04/28: Patient arousable but lethargic. Answers questions. Vital Signs: Temp Pulse Resp BP SpO2 FiO2 99.1 F 96 16 91/69 100 04/28/18 08:30 04/28/18 08:30 04/28/18 09:00 04/28/18 08:30 04/28/18 08:30 Physical Exam: Gen - lethargic but arousable HEENT - NCAT, eomi, poor dentition Neck - no jvd CV - s1/s2, no murmur Lungs - CTA, no wheeze Abd - soft Ext - no cce Neuro - lethargic but arousable, follows commands, moves all extremities Fluid Balance (Past 24 Hours): I= O= Net Intake & Output 04/26/18 04/27/18 04/28/18 04/29/18 06:59 06:59 06:59 06:59 Intake Total 333 Output Total 640 124 Balance -307 -124 Weight 68.039 kg 57.606 kg Intake: IV Fluids 333 NS (0.9%) 333 Output: Urine 100 Ferrera 490 124 Residual 50 Ferrera 16 Fr Temperature 50 Probe Labs: Laboratory Results - last 24 hr 04/27/18 04/27/18 04/27/18 22:45 23:11 23:11 WBC 8.8 RBC 4.27 Hgb 12.9 Hct 38 MCV 89 MCH 30 MCHC 34 RDW 13 Plt Count 107 L MPV 10.1 Neut % (Auto) 69.6 Lymph % (Auto) 21.1 L Jay % (Auto) 7.9 H Eos % (Auto) 1.1 Baso % (Auto) 0.3 Absolute Neuts (auto) 6.1 Absolute Lymphs (auto) 1.9 Absolute Monos (auto) 0.7 Absolute Eos (auto) 0.1 Absolute Basos (auto) 0 Absolute Nucleated RBC 0 Nucleated RBC % 0.1 INR (Anticoag Therapy) 1.23 H APTT ABG pH ABG pCO2 ABG pO2 ABG HCO3 ABG O2 Saturation ABG Base Excess Sodium Potassium Chloride Carbon Dioxide Anion Gap BUN Creatinine Est GFR ( Amer) Est GFR (Non-Af Amer) BUN/Creatinine Ratio Glucose POC Glucose (mg/dL) 128 H Hemoglobin A1c Lactic Acid Calcium Total Bilirubin AST ALT Alkaline Phosphatase Ammonia Total Protein Albumin Globulin Albumin/Globulin Ratio Triglycerides Cholesterol LDL Cholesterol HDL Cholesterol Prolactin Urine Opiates Screen Ur Barbiturates Screen Ur Phencyclidine Scrn Ur Amphetamines Screen U Benzodiazepines Scrn Urine Cocaine Screen U Cannabinoids Screen 04/27/18 04/27/18 04/27/18 23:11 23:11 23:11 WBC RBC Hgb Hct MCV MCH MCHC RDW Plt Count MPV Neut % (Auto) Lymph % (Auto) Jay % (Auto) Eos % (Auto) Baso % (Auto) Absolute Neuts (auto) Absolute Lymphs (auto) Absolute Monos (auto) Absolute Eos (auto) Absolute Basos (auto) Absolute Nucleated RBC Nucleated RBC % INR (Anticoag Therapy) APTT 31.0 ABG pH ABG pCO2 ABG pO2 ABG HCO3 ABG O2 Saturation ABG Base Excess Sodium 138 Potassium 3.7 Chloride 109 Carbon Dioxide 17 L Anion Gap 12 H BUN 27 H Creatinine 2.31 H Est GFR ( Amer) 25.8 Est GFR (Non-Af Amer) 21.3 BUN/Creatinine Ratio 11.7 Glucose 137 H POC Glucose (mg/dL) Hemoglobin A1c Lactic Acid 0.8 Calcium 9.6 Total Bilirubin 0.60 AST 43 H ALT 20 Alkaline Phosphatase 81 Ammonia Total Protein 7.2 Albumin 4.2 Globulin 3.0 Albumin/Globulin Ratio 1.4 Triglycerides Cholesterol LDL Cholesterol HDL Cholesterol Prolactin 47.9 H Urine Opiates Screen Ur Barbiturates Screen Ur Phencyclidine Scrn Ur Amphetamines Screen U Benzodiazepines Scrn Urine Cocaine Screen U Cannabinoids Screen 04/27/18 04/28/18 04/28/18 23:37 00:15 00:53 WBC RBC Hgb Hct MCV MCH MCHC RDW Plt Count MPV Neut % (Auto) Lymph % (Auto) Jay % (Auto) Eos % (Auto) Baso % (Auto) Absolute Neuts (auto) Absolute Lymphs (auto) Absolute Monos (auto) Absolute Eos (auto) Absolute Basos (auto) Absolute Nucleated RBC Nucleated RBC % INR (Anticoag Therapy) APTT ABG pH 7.36 ABG pCO2 30 L ABG pO2 98 ABG HCO3 19.1 ABG O2 Saturation 98.7 H ABG Base Excess -7.4 L Sodium Potassium Chloride Carbon Dioxide Anion Gap BUN Creatinine Est GFR ( Amer) Est GFR (Non-Af Amer) BUN/Creatinine Ratio Glucose POC Glucose (mg/dL) Hemoglobin A1c Lactic Acid Calcium Total Bilirubin AST ALT Alkaline Phosphatase Ammonia 43 Total Protein Albumin Globulin Albumin/Globulin Ratio Triglycerides Cholesterol LDL Cholesterol HDL Cholesterol Prolactin Urine Opiates Screen None detected Ur Barbiturates Screen None detected Ur Phencyclidine Scrn None detected Ur Amphetamines Screen None detected U Benzodiazepines Scrn None detected Urine Cocaine Screen None detected U Cannabinoids Screen None detected 04/28/18 04/28/18 04/28/18 06:00 06:00 06:00 WBC 8.5 RBC 3.63 L Hgb 11.2 L Hct 32 L MCV 88 MCH 31 MCHC 35 RDW 13 Plt Count 93 L MPV 8.9 Neut % (Auto) 63.6 Lymph % (Auto) 25.5 Jay % (Auto) 9.0 H Eos % (Auto) 1.5 Baso % (Auto) 0.4 Absolute Neuts (auto) 5.4 Absolute Lymphs (auto) 2.2 Absolute Monos (auto) 0.8 Absolute Eos (auto) 0.1 Absolute Basos (auto) 0 Absolute Nucleated RBC 0 Nucleated RBC % 0 INR (Anticoag Therapy) APTT ABG pH ABG pCO2 ABG pO2 ABG HCO3 ABG O2 Saturation ABG Base Excess Sodium 143 Potassium 3.7 Chloride 113 H Carbon Dioxide 18 L Anion Gap 12 H BUN 24 Creatinine 2.18 H Est GFR ( Amer) 27.6 Est GFR (Non-Af Amer) 22.8 BUN/Creatinine Ratio 11.0 Glucose 121 H POC Glucose (mg/dL) Hemoglobin A1c 5.7 H Lactic Acid Calcium 9.0 Total Bilirubin AST ALT Alkaline Phosphatase Ammonia Total Protein Albumin Globulin Albumin/Globulin Ratio Triglycerides 225 Cholesterol 189 LDL Cholesterol 114 HDL Cholesterol 30.5 Prolactin Urine Opiates Screen Ur Barbiturates Screen Ur Phencyclidine Scrn Ur Amphetamines Screen U Benzodiazepines Scrn Urine Cocaine Screen U Cannabinoids Screen Studies: 04/26/18 Renal Sono IMPRESSION: MEDICAL RENAL DISEASE. RENAL CYST. INDETERMINATE HYPOECHOIC STRUCTURE LOWER POLE RIGHT KIDNEY. SUGGEST 3 MONTH FOLLOW-UP OR PREFERABLY CORRELATION WITH ANY PRIOR IMAGING IF AVAILABLE. 04/26/18 CT Head IMPRESSION: Cortical atrophy. No acute intracranial findings Impression: 62F with schizophrenia and depression presents with AMS/Lethargy. Renal failure. Plan: Neuro - AMS, schizophrenia - unclear etiology - seizure vs exhaustion vs medication side effect - EEG pending - CT head negative - More alert this AM - hold sedating meds for now - psychiatry consult CV - hemodynamically stable Pulm - oxygenating well on room air ID - wbc normal - afebrile - no evidenc of infection GI - - start diet Renal - boby - baseline creatinine unkown - renal sono with medical renal disease - send urine lytes - monitor bmp Heme - monitor cbc Endo - TSH normal Lines - PIV PPx - GI/DVT Full Code Stable for downgrade to Medical floor Critical Care Time: 35 mins
--- NOTE | 2018-04-28 12:52 | HP ---
HISTORY AND PHYSICAL/DISCHARGE SUMMARY: DATE OF ADMISSION: 04/27/18 DATE OF DISCHARGE: 04/27/18 DISCHARGE DIAGNOSES: Min[place] I - Unspecified psychotic disorder. Minot II is deferred. CONDITION AT THE TIME OF DISCHARGE: Guarded. The patient was reportedly unresponsive on our unit an d a CONNOR team was called, they could not arouse her and therefore she was transferred to the Intensiv e Care Unit. At this time, her psychiatric issues are secondary to her more immediate medical needs. Psychiatry would like to remain involved in the patient's care and we expect to be consulted by the cabin supervisor so that we can continue to monitor the patient. She will likely need readmission on the BSU at the time of her medical stabilization. Mental status exam was not performed. DISCHARGE INSTRUCTIONS: The patient is discharged directly to the ICU and they will manage her medic ations therein. DIET: As per tolerated. ACTIVITIES: As per ICU protocol. FOLLOW-UP CARE: The patient will be followed by the psychiatric consult service and likely transferr ed back to the Behavioral Science Unit at the time that she is medically cleared. HOSPITAL COURSE: The patient is a 62-year-old single white female who [facility] the [facility], who arrived with complaints of dizziness. We received collateral infor alissa from the [facility] that she has not been taking medications nor eating anything for the past 5 to 6 days. In the ER, she appeared to be extremely confused, disoriented as evidenced by her asking for her father's address despite the fact that he is recently . It was not felt that she could maintain her own safety in the community and for that reason she was admitted. Overnight, the patient developed unresponsiveness and a CONNOR team was called. She was thereafter transferred to the ICU. She was not seen by a psychiatric provider and this H and P/discharge summary is based on the notes that are in our system. We will continue to monitor her progress and it is likely that she will be transferred back to our care when she is medically stable. [id number]/[facility] #: [id number]
--- NOTE | 2018-04-28 23:02 | EEG ---
ELECTROENCEPHALOGRAPHY: DATE OF STUDY: 04/28/18 - ROOM #405 DATE READ: 04/28/18 DURATION OF STUDY: 8:25 a.m.-8:53 a.m. ORDERED BY: Jacob Bolanos MD MEDICATIONS: 1. BuSpar. 2. Ferrous sulfate. 3. Protonix. 4. . 5. Nystatin. 6. Clozapine. 7. Landmark. 8. Tylenol. 9. Maalox. 10. Imodium. CLINICAL STATE: Awake and sleep. CLINICAL PROBLEM: Ms. Skylar Pedraza is a 62-year-old female with history of schizophrenia, who presented with confusion, uncooperative and disorganized thoughts and an episode of unresponsiveness. She was transferred to the ICU for further evaluation. This EEG was ordered to evaluate for epileptiform abnormalities or nonconvulsive status epilepticus. REPORT: The background consisted of mixed frequency with disorganized background with intermixed faster alpha and beta frequency up to 18 Hz. There was waking background of 9 Hz that was poorly sustained, but symmetrically and showed normal reactivity. There was intermittent, diffuse paroxysmal dysrhythmic polymorphic 3-6 Hz slowing lasting for 0.5-2 seconds. In addition, there were rare spike and spike and slow wave complexes seen in the right frontocentral region maximal at C4 and CZ with the field extending to F4 and P4. There was attenuation of the occipital rhythm accompanied drowsiness. The sleep background was disorganized with persistent theta frequency and brief runs of sleep spindle and vertex waves. No clinical correlation was seen. Hyperventilation and photic stimulation were not performed. There were no electrographic seizures throughout the study. CLINICAL IMPRESSION: This is an abnormal awake and sleep EEG due to diffuse slowing of the background, intermittent diffuse polymorphic slowing, and rare spike and spike and wave complexes seen in the right frontocentral and centroparietal region. These findings are suggestive of mild-moderate diffuse encephalopathy with superimposed increased epileptogenic potential emanating from the right frontocentral and centroparietal regions. In addition, these abnormalities could be seen in the setting of chronic lithium use or lithium toxicity. Clinical correlation is recommended. If the patient develops any seizure-like episodes, I recommend repeating a bedside EEG study. [id number]/[facility] #: [id number] [facility]
[2018-04-29] MEDS: Nystatin CREAM* 30 GM TOPICAL SCH ×4 (04:35→16:47)
[2018-04-29 06:48] LABS: ABS Basophils 0 10^3/ul (0-0.2); ABS Eosinophils 0.1 10^3/ul (0-0.6); ABS Lymphocytes 1.5 10^3/ul (1.0-4.8); ABS Monocytes 0.6 10^3/ul (0-0.8); ABS Neutrophils 4.7 10^3/ul (1.5-7.7); ABS Nucleated RBC 0 10^3/ul; Eosinophil % 1.9 % (0-6); Hematocrit 34 % (35-47); Hemoglobin 11.4 g/dl (12.0-16.0); Lymphocyte % 21.3 % (25-47); Mean Corpuscular HGB Conc 34 g/dl (31-36); Mean Corpuscular Hemoglobin 30 pg (27-31); Mean Corpuscular Volume 88 fL (80-97); Mean Platelet Volume 9.6 um3 (7.4-10.4); Nucleated Red Blood Cells % 0; Platelet Count 98 10^3/ul (150-450); Red Blood Count 3.81 10^6/ul (4.00-5.40); Red Cell Distribution Width 13 % (10.5-15); White Blood Count 6.9 10^3/ul (3.5-10.8)
[2018-04-29 06:49] LABS: EGFR Non-African American 23.3 (>60)
[2018-04-29 07:02] LABS: Lithium 0.13 mmol/L (0.6-1.2)
[2018-04-29] MEDS: busPIRone TAB* 10 MG PO SCH (10:34)
[2018-04-29] MEDS: Pantoprazole IV* 40 MG IV SCH (10:34)
[2018-04-29] MEDS: Ferrous Sulfate TAB* 325 MG PO SCH (10:34)
--- NOTE | 2018-04-29 15:18 | PN ---
Subjective Date of Service: 04/29/18 Interval History: Pt seen and examined. Meds and labs reviewed. CC: MS change ROS: Pt gives inconsistent and unreliable answers to my 14 point ROS PHYSICAL EXAM: GEN APPEARANCE: Awake, not in acute distress HEENT: NC/AT, PERRLA, moist oral mucosa, (-) throat erythema NECK: Soft, supple, (-) cervical LAD, (-)JVD HEART: S1S2 WNL, RRR, No MRG CHEST: CTA, BL, GAE, No W/R/R ABD: Soft, ND/NT, NABS 4x Q EXT: No C/C/E SKIN: Warm to touch PSYCH: Blunt affect Objective Active Medications: Acetaminophen (Tylenol Supp*) 650 mg AK Q6H PRN PRN Reason: FEVER/PAIN Al Hydrox/Mg Hydrox/Simethicone (Maalox Plus*) 30 ml PO Q4H PRN PRN Reason: INDIGESTION Buspirone HCl (Buspar Tab*) 10 mg PO DAILY [facility] Last Admin: 04/29/18 10:34 Dose: 10 mg Ferrous Sulfate (Ferrous Sulfate Tab*) 325 mg PO DAILY [facility] Last Admin: 04/29/18 10:34 Dose: 325 mg Sodium Chloride (Ns 0.9% 1000 Ml*) 1,000 mls @ 50 mls/hr IV PER RATE [facility] Last Admin: 04/28/18 08:47 Dose: 50 mls/hr Sodium Chloride (Ns 0.9% 1000 Ml*) 1,000 mls @ 125 mls/hr IV PER RATE [facility] Last Admin: 04/28/18 14:15 Dose: 125 mls/hr Nystatin (Nystatin Cream*) 1 applic TOPICAL Q6H [facility] Last Admin: 04/29/18 12:50 Dose: Not Given Pantoprazole Sodium (Protonix Iv*) 40 mg IV DAILY [facility] Last Admin: 04/29/18 10:34 Dose: 40 mg Vital Signs - 8 hr 04/29/18 04/29/18 04/29/18 07:57 08:00 11:30 Temperature 97.0 F 97.7 F Pulse Rate 79 80 Respiratory 18 16 18 Rate Blood Pressure 141/73 143/70 (mmHg) O2 Sat by Pulse 100 100 100 Oximetry Oxygen Devices in Use Now: None Result Diagrams: 04/29/18 06:12 04/29/18 06:12 Microbiology and Other Data: Microbiology 04/26/18 21:40 Urine Culture - Final Urine Assess/Plan/Problems-Billing Assessment: - Patient Problems (1) Change in mental status Current Visit: Yes Status: Acute Code(s): R41.82 - ALTERED MENTAL STATUS, UNSPECIFIED SNOMED Code(s): 901814253 Comment: -Possibly due to [place] and Clozapine toxicity in the setting of CKD despite lithium being in the lower threshold of therapeutic range? -Above seems to be supported by EEG findings suggestive of encephalopathy -Ammonia level was found to be normal -Unclear baseline renal status since the creatinine has been high since 04/25 and last normal read was back in 2011 (2) Anxiety Current Visit: Yes Status: Acute Code(s): F41.9 - ANXIETY DISORDER, UNSPECIFIED SNOMED Code(s): 50672184 Comment: #Anxiety, Schizophrenia, and depression: -Continue Buspirone -Defer with Psych and will await any further recommendations given above (3) GERD (gastroesophageal reflux disease) Current Visit: Yes Status: Acute Code(s): K21.9 - GASTRO-ESOPHAGEAL REFLUX DISEASE WITHOUT ESOPHAGITIS SNOMED Code(s): 671843261 Comment: -Continue Pantoprazole (4) DVT prophylaxis Current Visit: Yes Status: Acute Code(s): GQZ4390 - SNOMED Code(s): 364370430 Comment: -Continue SCDs Status and Disposition: -As above
--- NOTE | 2018-04-29 16:19 | CONSULT ---
Consult Consult: S: Skylar was seen for follow up by the psychiatry service today in her room on the 4th floor. She was not able to participate in a meaningful conversation, secondary to encephalopathy and was not even able to acknowledge her own name. She gazed at me expressionlessly, saying "Are we going to start another war with [place]?" She could not provide information about her condition or circumstances. O: aging aparicio-haired white female in a patient gown; sitting upright in bed, cooperative with nursing staff applying an IV line; minimal speech in form of gibberish; euthymic with blunted affect; cannot answer questions related to SI/ HI/AH/VH. Patient confused and does not know day/date/month/year/season. Disoriented to place and situation as well A/P: Encephalopathy: medical cause uncertain, confirmed by EEG. Will resume clozapine therapy at 150mg PO qhs dose as WBCs/neutrophils wnl. Psychiatry will continue to follow.
[2018-04-29] MEDS: CloZAPine TAB* 100 MG TAB PO SCH (21:09)
[2018-04-30] MEDS: Nystatin CREAM* 30 GM TOPICAL SCH ×4 (05:30→17:40)
[2018-04-30 07:38] LABS: EGFR Non-African American 25.5 (>60)
[2018-04-30 07:40] LABS: Hematocrit 32 % (35-47); Mean Corpuscular HGB Conc 34 g/dl (31-36); Mean Corpuscular Hemoglobin 30 pg (27-31); Mean Corpuscular Volume 89 fL (80-97); Mean Platelet Volume 9.1 um3 (7.4-10.4); Platelet Count 84 10^3/ul (150-450); Red Blood Count 3.64 10^6/ul (4.00-5.40); Red Cell Distribution Width 13 % (10.5-15)
[2018-04-30] MEDS: busPIRone TAB* 10 MG PO SCH (08:28)
[2018-04-30] MEDS: Pantoprazole IV* 40 MG IV SCH (08:29)
[2018-04-30] MEDS: Ferrous Sulfate TAB* 325 MG PO SCH (08:29)
[2018-04-30] MEDS: NS 0.9% 1000 ML* 1,000 ML IV SCH (09:15)
--- NOTE | 2018-04-30 09:38 | PN ---
Subjective Date of Service: 04/30/18 Interval History: . Patient sitting alert, awake sitting up eating breakfast. Follows some commands with prompting. She asked "Do you look like Hitler?". She denies hallucinations. Reports good appetite. Denies pain. She is not able to hold a conversation. Spoke with Sister Mayte who is the HCP and gave an update. She would lke to be updated with any changes and on a daily basis. She lives in [place] and will be visiting [facility]. She reports prior to this acute psychosis she has been stable for 12 years and recently had some emotional trauma and changes that she believes pushed her into psychosis and stop taking her medications. Objective Active Medications: Acetaminophen (Tylenol Supp*) 650 mg IA Q6H PRN PRN Reason: FEVER/PAIN Al Hydrox/Mg Hydrox/Simethicone (Maalox Plus*) 30 ml PO Q4H PRN PRN Reason: INDIGESTION Buspirone HCl (Buspar Tab*) 10 mg PO DAILY [facility] Last Admin: 04/30/18 08:28 Dose: 10 mg Clozapine (Clozapine Tab*) 150 mg PO BEDTIME [facility] Last Admin: 04/29/18 21:09 Dose: 150 mg Ferrous Sulfate (Ferrous Sulfate Tab*) 325 mg PO DAILY [facility] Last Admin: 04/30/18 08:29 Dose: 325 mg Sodium Chloride (Ns 0.45% 1000 Ml Bag*) 1,000 mls @ 100 mls/hr IV PER RATE [facility] Nystatin (Nystatin Cream*) 1 applic TOPICAL Q6H [facility] Last Admin: 04/30/18 05:50 Dose: Not Given Pantoprazole Sodium (Protonix Iv*) 40 mg IV DAILY [facility] Last Admin: 04/30/18 08:29 Dose: 40 mg Vital Signs - 8 hr 04/30/18 04/30/18 03:43 07:21 Temperature 97.9 F 97.6 F Pulse Rate 84 89 Respiratory 16 20 Rate Blood Pressure 150/70 149/76 (mmHg) O2 Sat by Pulse 100 99 Oximetry Oxygen Devices in Use Now: None Appearance: alert and awake in NAD, flat affect. mild psychosis? not answering questions appropriately Eyes: No Scleral Icterus, PERRLA Ears/Nose/Mouth/Throat: NL Teeth, Lips, Gums, Mucous Membranes Moist Neck: NL Appearance and Movements; NL JVP Respiratory: Symmetrical Chest Expansion and Respiratory Effort, Clear to Auscultation Cardiovascular: NL Sounds; No Murmurs; No JVD, RRR, No Edema Abdominal: NL Sounds; No Tenderness; No Distention Extremities: No Edema, No Clubbing, Cyanosis Neurological: NL Sensation, NL Muscle Strength and Tone, - - alert Lines/Tubes/Other Access: Clean, Dry and Intact Peripheral IV Nutrition: Taking PO's Result Diagrams: 04/30/18 06:35 04/30/18 12:21 Microbiology and Other Data: Microbiology 04/26/18 21:40 Urine Culture - Final Urine Assess/Plan/Problems-Billing Assessment: 62F with schizophrenia and depression presents with AMS/Lethargy. Renal failure. CAT call on 04/28 for lethargy/unresponsiveness - Patient Problems (1) Change in mental status Comment: - is alert this morning but continues to have confusion - seizure vs encephalopathy 2nd to medication toxicity in the setting of CKD - EEG suggestive of encephalopathy, these abnormalities could be seen in the setting of chronic lithium or lithium toxicity or possible seizure activity. - CT negative - Psych restarted clonzapine last night at a lower dose, lithium continues to be on hold - Neurology consult pending - discussed over phone - plan to repeat EEG tomorrow. continue seizure precautions and neurochecks. (2) Hypernatremia Comment: - Na+ 150 this am up from 146 yesterday. Possible DI? 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 Switch to 1/2 NS 100 ml/hr and repeat BMP q6hr. Possible lithium induced ? Send urine osm & sodium. Repeat lithium level. She also had an elevated prolactin - CT brain is negative but will need MRI of the brain to r/o tumor - unable to give contrast d/t CKD. - strict I+Os (3) Renal failure Comment: - appears to be acute on chronic - suspect in the setting of dehydration, improved with IVFs. FENA pre-renal. Creatinine 2.3 in admission - noted to be 1.7 in 2012 - today 1.9 (4) Schizoaffective disorder, bipolar type Comment: - Per sister at her baseline she is high functioning and psychosis has been stable for at least 12 years. She has had 3 recent emotional traumas within the last few months - father dying, boyfriend becoming sick and reuiring NH care and had a change in her long-term foster care social worker. - Pysch restarted clozapine last night at 1/2 home dose, lithium continues to be on hold (5) GERD (gastroesophageal reflux disease) Comment: -Continue Pantoprazole (6) Thrombocytopenia Comment: - Hx of thrombocytopenia. Stable. (7) DVT prophylaxis Comment: -Continue SCDs Status and Disposition: . inpatient. Plan to return to psych unit when medically cleared.
[2018-04-30] MEDS: NS 0.45% 1000 ML BAG* 1,000 ML IV SCH ×2 (09:49→22:22)
[2018-04-30 10:36] LABS: Lithium < 0.10 mmol/L (0.6-1.2)
[2018-04-30 12:47] LABS: EGFR Non-African American 25.5 (>60)
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
[2018-04-30 19:16] LABS: EGFR Non-African American 25.3 (>60)
[2018-04-30] MEDS: CloZAPine TAB* 100 MG TAB PO SCH (22:20)
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
[2018-05-01] MEDS: Nystatin CREAM* 30 GM TOPICAL SCH ×5 (00:55→23:49)
[2018-05-01 01:02] LABS: EGFR Non-African American 25.6 (>60)
[2018-05-01 06:51] LABS: ABS Basophils 0 10^3/ul (0-0.2); ABS Eosinophils 0.1 10^3/ul (0-0.6); ABS Lymphocytes 1.4 10^3/ul (1.0-4.8); ABS Monocytes 0.6 10^3/ul (0-0.8); ABS Neutrophils 4.2 10^3/ul (1.5-7.7); ABS Nucleated RBC 0 10^3/ul; Eosinophil % 1.8 % (0-6); Hematocrit 30 % (35-47); Hemoglobin 10.6 g/dl (12.0-16.0); Mean Corpuscular HGB Conc 35 g/dl (31-36); Mean Corpuscular Hemoglobin 31 pg (27-31); Mean Corpuscular Volume 87 fL (80-97); Mean Platelet Volume 8.9 um3 (7.4-10.4); Nucleated Red Blood Cells % 0; Platelet Count 88 10^3/ul (150-450); Red Blood Count 3.45 10^6/ul (4.00-5.40); Red Cell Distribution Width 12 % (10.5-15); White Blood Count 6.3 10^3/ul (3.5-10.8)
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
[2018-05-01 07:14] LABS: EGFR Non-African American 25.8 (>60)
[2018-05-01] MEDS: busPIRone TAB* 10 MG PO SCH ×2 (09:42→11:14)
[2018-05-01] MEDS: Pantoprazole IV* 40 MG IV SCH (09:42)
[2018-05-01] MEDS: Ferrous Sulfate TAB* 325 MG PO SCH ×2 (09:42→11:15)
[2018-05-01] MEDS: NS 0.45% 1000 ML BAG* 1,000 ML IV SCH (09:57)
[2018-05-01 13:45] LABS: EGFR Non-African American 25.2 (>60)
[2018-05-01] MEDS: D5W 1000 ML BAG* 1,000 ML IV SCH ×2 (14:49→23:33)
--- NOTE | 2018-05-01 15:27 | CONSULT ---
Identification - Patient Identification Reason for Psychiatric Consultation: Incapacitating Symptoms -: Patient is a 62 year old, F admitted on 04/27/18. - MHU Identification Employment Status: Disabled Hx Psychiatric Hospitalization: Yes History - Objective HPI: Skylar seems far less confused today, although she does not make much spontaneous speech and continues to demonstrate thought blocking. She is aware that we are at "[facility]" but cannot give the day, date, month, year or season. She seems to be tolerating the resumption of lower dose clozapine well and awaits further neurological work up for encephalopathy, including second EEG and brain MRI. She appears calm. Exam Appearance: Well Developed/Nourished Hygiene: Normal Grooming: Fairly Well Kept Psychomotor Activities: Abnormal-Decreased Exhibits Abnormal Movement: No Attitude and Relatedness: Psychotically Related Eye Contact: Poor - Speech Quality: Unpressured Latencies: Long Quantity: Terse Patient's Decription of Mood: "Okay" Observed Affect: Fair Affect Consistent with: Euthymia Patient's Thought Process: Impoverished Thought Content: Yes Paranoid Ideation, No Passive Wish, No Suicidal Planning, No Homicidal Ideation Experiencing Hallucinations: No, Sensorium is Clear Type of Hallucinations: Visual: No, Auditory: No, Command: No Level of Consciousness: Alert Orientation: Yes Orientated to Place, Yes Orientated to Person, No Intact, No Orientated to Time Impulse Control: Poor Insight and Judgement: Impaired Impression - Impression Clinical Impression: 62 y.o. single, never , white female with Hx of severe/persistent schizophrenia, residing at a [facility] residence, admitted to the [facility] on 04/27/18 for thought disorganization and poor self-care in the setting of self- discontinuation of psychotropic medications, then transferred to the Hospitalist service following an episode of unresponsiveness. She currently presents with delirium secondary to kidney disfunction, prolonged insomnia versus possible seizure??? Inpatient DSM-V Dx: R41.0 Merits Inpatient Hospitalization: Yes Problem List - MHU Problems Type of Problem: Medication Management Plan - Treatment Plan Treatment Plan: The patient awaits further medical/neurological workup. Refer to hospitalist and neurology notes. Pending second EEG and MRI of brain if tolerated. We are holding lithium due to renal insufficiency of unknown etiology. We have resumed clozapine, albeit cautiously, as this medicine is known to induce seizures. We will increase the dose tonight from 150 to 200mg. Psychiatry will continue to follow and she will likely be transferred back to the [facility] once medically/neurologically stable and no longer encephalopathic. Continued Medication Management: Continue Outpt Medication Medications: Current Medications Acetaminophen (Tylenol Supp*) 650 mg NC Q6H PRN PRN Reason: FEVER/PAIN Al Hydrox/Mg Hydrox/Simethicone (Maalox Plus*) 30 ml PO Q4H PRN PRN Reason: INDIGESTION Buspirone HCl (Buspar Tab*) 10 mg PO DAILY [facility] Last Admin: 05/01/18 11:14 Dose: Not Given Clozapine (Clozapine Tab*) 150 mg PO BEDTIME [facility] Last Admin: 04/30/18 22:20 Dose: 150 mg Ferrous Sulfate (Ferrous Sulfate Tab*) 325 mg PO DAILY [facility] Last Admin: 05/01/18 11:15 Dose: Not Given Dextrose (D5w 1000 Ml Bag*) 1,000 mls @ 100 mls/hr IV PER RATE [facility] Last Admin: 05/01/18 14:49 Dose: 100 mls/hr Nystatin (Nystatin Cream*) 1 applic TOPICAL Q6H [facility] Last Admin: 05/01/18 14:49 Dose: 1 applic Pantoprazole Sodium (Protonix Iv*) 40 mg IV DAILY [facility] Last Admin: 05/01/18 09:42 Dose: 40 mg - Discharge Plan Discharge Plan: Inpatient Hospitalization
--- NOTE | 2018-05-01 16:07 | PN ---
Subjective Date of Service: 05/01/18 Interval History: No reported seizure activity overnight. Her cognition is slowly improving. ROS: She denied any CP, SOB, or palpitations. She denied any headaches or visual disturbance. Objective Active Medications: Acetaminophen (Tylenol Supp*) 650 mg [place] Q6H PRN PRN Reason: FEVER/PAIN Al Hydrox/Mg Hydrox/Simethicone (Maalox Plus*) 30 ml PO Q4H PRN PRN Reason: INDIGESTION Buspirone HCl (Buspar Tab*) 10 mg PO DAILY [facility] Last Admin: 05/01/18 11:14 Dose: Not Given Clozapine (Clozapine Tab*) 200 mg PO BEDTIME [facility] Ferrous Sulfate (Ferrous Sulfate Tab*) 325 mg PO DAILY [facility] Last Admin: 05/01/18 11:15 Dose: Not Given Dextrose (D5w 1000 Ml Bag*) 1,000 mls @ 100 mls/hr IV PER RATE [facility] Last Admin: 05/01/18 14:49 Dose: 100 mls/hr Nystatin (Nystatin Cream*) 1 applic TOPICAL Q6H [facility] Last Admin: 05/01/18 14:49 Dose: 1 applic Pantoprazole Sodium (Protonix Iv*) 40 mg IV DAILY [facility] Last Admin: 05/01/18 09:42 Dose: 40 mg Vital Signs 04/30/18 04/30/18 04/30/18 16:02 16:35 19:52 Temperature 97.7 F 98.8 F Pulse Rate 78 81 Respiratory 20 20 Rate Blood Pressure 160/73 152/80 (mmHg) O2 Sat by Pulse 100 100 100 Oximetry 04/30/18 04/30/18 05/01/18 20:00 23:44 00:00 Temperature 98.1 F Pulse Rate 93 Respiratory 18 18 Rate Blood Pressure 149/84 (mmHg) O2 Sat by Pulse 98 100 Oximetry 05/01/18 05/01/18 05/01/18 02:46 07:24 08:00 Temperature 98.3 F 98.5 F Pulse Rate 99 88 Respiratory 20 18 18 Rate Blood Pressure 154/79 149/63 (mmHg) O2 Sat by Pulse 98 100 100 Oximetry 05/01/18 05/01/18 11:04 15:34 Temperature 98.0 F 97.6 F Pulse Rate 83 75 Respiratory 19 17 Rate Blood Pressure 159/74 159/75 (mmHg) O2 Sat by Pulse 100 100 Oximetry Oxygen Devices in Use Now: None Neurology Exam: General: Well nourished female in no acute distress. She seems more cheerful today. HEENT: Normocephelic/atraumatic Neck: Supple Chest: Clear to auscultation bilaterally Cardiovascular: Regular rate and rhythm without murmurs, rubs, gallops Extremities: No clubbing, cyanosis, or edema Psych: flat affect with normal mood. Denied any suicide or homicide ideation. Neurological Findings: Awake, Alert, Oriented to person, place, but not time. Speech: hypophonic no dysarthria. Cranial Nerve: PEERL, EOM intact, VFF, no nystagmus Motor: moves all extremities to command. Sensation: intact to LT/PP bilaterally upper and lower extremities Deep Tendon Reflex: 2+ symmetric in the upper/lower extremities, Babinski - down going Coordination: normal finger to nose. Mild resting tremor. Result Diagrams: 05/01/18 06:16 05/01/18 13:10 Microbiology and Other Data: Microbiology 04/26/18 21:40 Urine Culture - Final Urine Diagnostic Imaging: Routine awake and sleep EEG completed 07/01/2018 was normal with sharp vertex waves which is non-specific and could suggest a normal variant. Assessment/Plan 1. Hx of an unresponsive episode- isolated incident. Could have been a seizure after re-starting Clozaril and being sleep deprived for 5 days. EEG today was normal with no evidence of encephalopathy. There is no need to repeat a prolactin level or obtain an an MRI of the brain since clinically she is slowly improving. Continue Neuro checks every 4 hours for the next 24 hours. Consider PT evaluation and treatment and increase her OOB to chair orders to at least 3 times a day. 2. Hypernatremia- defer to the primary team. 3. Schizoaffective disorder- reviewed psychiatry's recommendations. Monitor for any seizures with the increase dose of Clozaril. Tx to psychiatric unit when medically stable. Neurology will sign off but we are available for any questions or concerns.
[2018-05-01 17:02] LABS: EGFR Non-African American 25.2 (>60)
[2018-05-01] MEDS: CloZAPine TAB* 100 MG TAB PO SCH (21:46)
[2018-05-01 22:04] LABS: EGFR Non-African American 24.9 (>60)
[2018-05-02] MEDS: D5W 1000 ML BAG* 1,000 ML IV SCH ×3 (01:15→21:52)
--- NOTE | 2018-05-02 02:28 | EEG ---
ELECTROENCEPHALOGRAPHY: DATE OF STUDY: 05/01/18 DATE READ: 05/01/18 DURATION OF STUDY: 12:24 - 12:50 ORDERING PROVIDER: Mayra Vang NP. INDICATION: Ms. Skylar Pedraza is a 62-year-old female with history of schizoaffective disorder wh o had an episode of unresponsiveness that has not recurred. She has been hospitalized for acute psyc hosis in the setting of abrupt discontinuation of her antipsychotic therapies. This EEG was requeste d to evaluate for epileptiform abnormalities. CLINICAL STATE: Awake and sleep. REPORT: The waking background showed appropriate organization with clearly defined anterior-posterio r voltage and frequency gradients. There was a well-defined posterior dominant rhythm of 10 Hz, whic h was symmetrical and showed normal reactivity. Anteriorly there was an expected pattern of lower vo ltage, irregular, mixed faster frequencies. Attenuation of the occipital rhythm accompanied drowsiness. The sleep background was organized with persistent theta frequency and brief runs of sleep spindle and vertex waves. The vertex wave was ext remely sharp and almost resembled sharp discharge, but most occurred symmetrically in the central reg ion making it consistent with a sleep transient. Hyperventilation and photic stimulation were not pe rformed. There were no clear epileptiform discharges or electrographic seizures. IMPRESSION: This is an normal awake and sleep EEG. There has been significant improvement since the prior study. There were no clear epileptiform discharges or electrographic seizures. [id number]/[facility] #: [id number]
[2018-05-02 05:34] LABS: ABS Basophils 0.1 10^3/ul (0-0.2); ABS Eosinophils 0.2 10^3/ul (0-0.6); ABS Lymphocytes 1.5 10^3/ul (1.0-4.8); ABS Monocytes 0.6 10^3/ul (0-0.8); ABS Neutrophils 3.6 10^3/ul (1.5-7.7); ABS Nucleated RBC 0 10^3/ul; Eosinophil % 2.6 % (0-6); Hematocrit 31 % (35-47); Hemoglobin 10.5 g/dl (12.0-16.0); Lymphocyte % 25.6 % (25-47); Mean Corpuscular HGB Conc 35 g/dl (31-36); Mean Corpuscular Hemoglobin 30 pg (27-31); Mean Corpuscular Volume 88 fL (80-97); Mean Platelet Volume 8.3 um3 (7.4-10.4); Nucleated Red Blood Cells % 0.1; Platelet Count 91 10^3/ul (150-450); Red Blood Count 3.48 10^6/ul (4.00-5.40); Red Cell Distribution Width 13 % (10.5-15); White Blood Count 5.9 10^3/ul (3.5-10.8)
[2018-05-02 05:44] LABS: EGFR Non-African American 25.5 (>60)
[2018-05-02] MEDS: Nystatin CREAM* 30 GM TOPICAL SCH ×3 (06:16→18:04)
[2018-05-02] MEDS: Pantoprazole IV* 40 MG IV SCH (07:54)
[2018-05-02] MEDS: Ferrous Sulfate TAB* 325 MG PO SCH ×2 (07:56→15:22)
[2018-05-02] MEDS: busPIRone TAB* 10 MG PO SCH ×2 (07:56→15:22)
--- NOTE | 2018-05-02 14:22 | PN ---
Subjective Date of Service: 05/02/18 Interval History: Patient when first assessed in AM woke up to her name and then closed her eyes tightly and would not open them. Would not respond to questioning but pulled covers back over herself whenever they were attempted to be removed for physical exam. Repeat examination revealed her responding to questioning and denying complaints including pain, F/C, N/V, CP, SOB. Did not know day, month, or year. Though she was at [place]. Family History: Unchanged from Admission Social History: Unchanged from Admission Past Medical History: Unchanged from Admission Objective Active Medications: Acetaminophen (Tylenol Supp*) 650 mg [place] Q6H PRN PRN Reason: FEVER/PAIN Al Hydrox/Mg Hydrox/Simethicone (Maalox Plus*) 30 ml PO Q4H PRN PRN Reason: INDIGESTION Buspirone HCl (Buspar Tab*) 10 mg PO DAILY [facility] Last Admin: 05/02/18 07:56 Dose: Not Given Clozapine (Clozapine Tab*) 200 mg PO BEDTIME [facility] Last Admin: 05/01/18 21:46 Dose: Not Given Ferrous Sulfate (Ferrous Sulfate Tab*) 325 mg PO DAILY [facility] Last Admin: 05/02/18 07:56 Dose: Not Given Dextrose (D5w 1000 Ml Bag*) 1,000 mls @ 100 mls/hr IV PER RATE [facility] Last Admin: 05/02/18 10:51 Dose: 100 mls/hr Nystatin (Nystatin Cream*) 1 applic TOPICAL Q6H [facility] Last Admin: 05/02/18 12:21 Dose: 1 applic Pantoprazole Sodium (Protonix Iv*) 40 mg IV DAILY [facility] Last Admin: 05/02/18 07:54 Dose: 40 mg Vital Signs - 8 hr 05/02/18 05/02/18 07:21 08:00 Temperature 97.6 F Pulse Rate 70 Respiratory 18 16 Rate Blood Pressure 163/71 (mmHg) O2 Sat by Pulse 97 99 Oximetry Oxygen Devices in Use Now: None Appearance: Patient is a 62yo female who appears stated age and is sitting in the bed in NAD. Eyes: No Scleral Icterus, PERRLA Ears/Nose/Mouth/Throat: NL Teeth, Lips, Gums, Clear Oropharnyx, Mucous Membranes Moist Neck: NL Appearance and Movements; NL JVP, Trachea Midline Respiratory: Symmetrical Chest Expansion and Respiratory Effort, Clear to Auscultation Cardiovascular: NL Sounds; No Murmurs; No JVD, RRR, No Edema Abdominal: NL Sounds; No Tenderness; No Distention, No Hepatosplenomegaly Lymphatic: No Cervical Adenopathy Extremities: No Edema, No Clubbing, Cyanosis Skin: No Rash or Ulcers, No Nodules or Sclerosis Neurological: NL Sensation, NL Muscle Strength and Tone, - - Sedated and intermittently awake. Moves all extremities symmetrically. Reflexes normal. Result Diagrams: 05/02/18 05:13 05/02/18 05:13 Microbiology and Other Data: Microbiology 04/26/18 21:40 Urine Culture - Final Urine Diagnostic Imaging: Routine awake and sleep EEG completed 07/01/2018 was normal with sharp vertex waves which is non-specific and could suggest a normal variant. Assess/Plan/Problems-Billing Assessment: 62F with schizophrenia and depression presents with AMS/Lethargy. Renal failure. CAT call on 04/28 for lethargy/unresponsiveness with concern for seizures due to elevated prolactin who has no other signs of seizure but remains lethargic. - Patient Problems (1) Change in mental status Current Visit: Yes Status: Acute Code(s): R41.82 - ALTERED MENTAL STATUS, UNSPECIFIED SNOMED Code(s): 652201497 Comment: Lethargic this AM. Responds occasionally to questioning and resists treatment Seizure vs Encephalopathy 2nd to medication toxicity in the setting of CKD EEG 8/10 suggestive of encephalopathy, these abnormalities could be seen in the setting of chronic lithium or lithium toxicity or possible seizure activity. 2nd repeat EEG 8/[address] brain negative Psych restarted clonzapine now at 200mg. (2) Schizoaffective disorder, bipolar type Current Visit: Yes Status: Acute Code(s): F25.0 - SCHIZOAFFECTIVE DISORDER, BIPOLAR TYPE SNOMED Code(s): 12519363 Comment: Per sister at her baseline she is high functioning and psychosis has been stable for at least 12 years. 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 [place] following Consideration of sarah beth leading to hospitalization and current lethargy from previous profound sleep deprivation or negative symptoms of psychosis. (3) Anxiety Current Visit: Yes Status: Acute Code(s): F41.9 - ANXIETY DISORDER, UNSPECIFIED SNOMED Code(s): 33256379 Comment: Continue Buspirone (4) GERD (gastroesophageal reflux disease) Current Visit: Yes Status: Acute Code(s): K21.9 - GASTRO-ESOPHAGEAL REFLUX DISEASE WITHOUT ESOPHAGITIS SNOMED Code(s): 077582592 Comment: Continue Pantoprazole (5) Hypernatremia Current Visit: Yes Status: Acute Code(s): E87.0 - HYPEROSMOLALITY AND HYPERNATREMIA SNOMED Code(s): 05794188 Comment: Stable - switch to D5 @ 100 ml/hr Possible DI secondary to lithium or transient hypernatremia 2nd to possible seizure? UO slowing down. continue strict I+Os Continue to monitor. (6) Renal failure Current Visit: Yes Status: Acute Comment: Acute on chronic. Returned to baseline Renally dose meds and avoid nephrotoxins. (7) Thrombocytopenia Current Visit: Yes Status: Acute Code(s): D69.6 - THROMBOCYTOPENIA, UNSPECIFIED SNOMED Code(s): 917126326 Comment: Hx of thrombocytopenia. Stable. (8) DVT prophylaxis Current Visit: Yes Status: Acute Code(s): UUU1365 - SNOMED Code(s): 186045374 Comment: Continue SCDs Status and Disposition: . inpatient. Plan to return to psych unit when medically cleared.
[2018-05-02] MEDS: CloZAPine TAB* 100 MG TAB PO SCH ×2 (15:24→19:25)
[2018-05-03] MEDS: Nystatin CREAM* 30 GM TOPICAL SCH ×4 (00:03→16:31)
[2018-05-03 06:53] LABS: ABS Basophils 0 10^3/ul (0-0.2); ABS Eosinophils 0.2 10^3/ul (0-0.6); ABS Lymphocytes 1.6 10^3/ul (1.0-4.8); ABS Monocytes 0.6 10^3/ul (0-0.8); ABS Neutrophils 4.5 10^3/ul (1.5-7.7); ABS Nucleated RBC 0 10^3/ul; Eosinophil % 2.3 % (0-6); Hematocrit 32 % (35-47); Lymphocyte % 22.8 % (25-47); Mean Corpuscular HGB Conc 35 g/dl (31-36); Mean Corpuscular Hemoglobin 30 pg (27-31); Mean Corpuscular Volume 86 fL (80-97); Mean Platelet Volume 8.4 um3 (7.4-10.4); Nucleated Red Blood Cells % 0.1; Platelet Count 98 10^3/ul (150-450); Red Blood Count 3.65 10^6/ul (4.00-5.40); Red Cell Distribution Width 12 % (10.5-15); White Blood Count 6.8 10^3/ul (3.5-10.8)
[2018-05-03] MEDS ORDERED: D5W 1000 ML BAG* 1,000 ML IV SCH (08:00)
[2018-05-03] MEDS: Ferrous Sulfate TAB* 325 MG PO SCH ×3 (08:24→10:50)
[2018-05-03] MEDS: Pantoprazole IV* 40 MG IV SCH (08:24)
[2018-05-03] MEDS: busPIRone TAB* 10 MG PO SCH ×3 (08:24→10:50)
[2018-05-03] MEDS: Potassium Chlor TAB* 20 MEQ TAB.ER PO SCH ×2 (10:26→21:54)
[2018-05-03] MEDS: aMILoride TAB* 5 MG PO SCH (10:50)
[2018-05-03] MEDS: DESMOPRESSIN 0.1 MG PO SCH ×2 (10:50→21:54)
--- NOTE | 2018-05-03 14:09 | PN ---
Subjective Date of Service: 05/03/18 Interval History: Patient more alert today. Persistently flat affect. Not oriented to place or time. Patient denies F/C, N/V, abdominal pain, diarrhea, CP, SOB, or other alarming symptoms. Sister Mayte updated on clinical progress by Dr. De La Fuente. Family History: Unchanged from Admission Social History: Unchanged from Admission Past Medical History: Unchanged from Admission Objective Active Medications: Acetaminophen (Tylenol Supp*) 650 mg [place] Q6H PRN PRN Reason: FEVER/PAIN Al Hydrox/Mg Hydrox/Simethicone (Maalox Plus*) 30 ml PO Q4H PRN PRN Reason: INDIGESTION Amiloride HCl (Midamor Tab*) 5 mg PO DAILY [facility] Last Admin: 05/03/18 10:50 Dose: 5 mg Buspirone HCl (Buspar Tab*) 10 mg PO DAILY [facility] Last Admin: 05/03/18 10:50 Dose: 10 mg Clozapine (Clozapine Tab*) 200 mg PO BEDTIME [facility] Last Admin: 05/02/18 19:25 Dose: Not Given Desmopressin Acetate (Desmopressin Tab (Nf)) 0.1 mg PO BID [facility] Last Admin: 05/03/18 10:50 Dose: 0.1 mg Ferrous Sulfate (Ferrous Sulfate Tab*) 325 mg PO DAILY [facility] Last Admin: 05/03/18 10:50 Dose: 325 mg Nystatin (Nystatin Cream*) 1 applic TOPICAL Q6H [facility] Last Admin: 05/03/18 12:04 Dose: Not Given Pantoprazole Sodium (Protonix Iv*) 40 mg IV DAILY [facility] Last Admin: 05/03/18 08:24 Dose: 40 mg Potassium Chloride (Klor Con Er Tab*) 20 meq PO BID [facility] Stop: 05/03/18 21:01 Last Admin: 05/03/18 10:26 Dose: 20 meq Vital Signs - 8 hr 05/03/18 05/03/18 05/03/18 07:19 08:00 11:16 Temperature 97.1 F 98.3 F Pulse Rate 80 77 Respiratory 18 16 16 Rate Blood Pressure 135/60 151/80 (mmHg) O2 Sat by Pulse 95 98 100 Oximetry Oxygen Devices in Use Now: None Appearance: Patient is a 62yo female who appears stated age and is sitting in the bed in [facility]. Eyes: No Scleral Icterus, PERRLA Ears/Nose/Mouth/Throat: NL Teeth, Lips, Gums, Clear Oropharnyx, Mucous Membranes Moist Neck: NL Appearance and Movements; NL JVP, Trachea Midline Respiratory: Symmetrical Chest Expansion and Respiratory Effort, Clear to Auscultation Cardiovascular: NL Sounds; No Murmurs; No JVD, RRR, No Edema Abdominal: NL Sounds; No Tenderness; No Distention, No Hepatosplenomegaly Lymphatic: No Cervical Adenopathy Extremities: No Edema, No Clubbing, Cyanosis Skin: No Rash or Ulcers, No Nodules or Sclerosis Neurological: NL Sensation, NL Gait, NL Muscle Strength and Tone, - - CN II-XII intact. Lines/Tubes/Other Access: Clean, Dry and Intact Ferreira - Yellow Urine Result Diagrams: 05/03/18 06:32 05/03/18 06:32 Microbiology and Other Data: Microbiology 04/26/18 21:40 Urine Culture - Final Urine Diagnostic Imaging: Routine awake and sleep EEG completed 07/01/2018 was normal with sharp vertex waves which is non-specific and could suggest a normal variant. Assess/Plan/Problems-Billing Assessment: 62F with schizophrenia and depression presents with AMS/Lethargy. Renal failure. CAT call on 04/28 for lethargy/unresponsiveness with concern for seizures due to elevated prolactin who has no other signs of seizure but remains lethargic. - Patient Problems (1) Change in mental status Current Visit: Yes Status: Acute Code(s): R41.82 - ALTERED MENTAL STATUS, UNSPECIFIED SNOMED Code(s): 669094854 Comment: More alert this AM. Responds readily to questioning. Seizure vs Encephalopathy 2nd to medication toxicity in the setting of CKD EEG 04/29 suggestive of encephalopathy, these abnormalities could be seen in the setting of chronic lithium or lithium toxicity or possible seizure activity. 2nd repeat EEG 05/[address] brain negative Psych restarted clonzapine now at 200mg. (2) Hypernatremia Current Visit: Yes Status: Acute Code(s): E87.0 - HYPEROSMOLALITY AND HYPERNATREMIA SNOMED Code(s): 21673790 Comment: Stable on fluids. Patient has poor oral intake and would not be able to keep up with fluid losses in urine as she is putting out almost 4L daily. Unknown chronicity of polyuria. Possibly compensated to this point. Appreciate Endocrinology input. No indication for non-contrast MRI at this time. CKD precludes contrast. Begin Amilioride and DDAVP and monitor urine studies. Continue strict I+Os with ferreira in place. Stop D5W. (3) Schizoaffective disorder, bipolar type Current Visit: Yes Status: Acute Code(s): F25.0 - SCHIZOAFFECTIVE DISORDER, BIPOLAR TYPE SNOMED Code(s): 53555381 Comment: Per sister at her baseline she is high functioning and psychosis has been stable for at least 12 years. 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 Pysch following Consideration of sarah beth leading to hospitalization and current lethargy from previous profound sleep deprivation or negative symptoms of psychosis. Until DI ruled out would not suggest restarting lithium. If additional mood stabilization needed an antiepileptic agent would likely be preferred due to possibility of seizure. (4) Anxiety Current Visit: Yes Status: Acute Code(s): F41.9 - ANXIETY DISORDER, UNSPECIFIED SNOMED Code(s): 44305798 Comment: Continue Buspirone (5) GERD (gastroesophageal reflux disease) Current Visit: Yes Status: Acute Code(s): K21.9 - GASTRO-ESOPHAGEAL REFLUX DISEASE WITHOUT ESOPHAGITIS SNOMED Code(s): 372475253 Comment: Continue Pantoprazole (6) Renal failure Current Visit: Yes Status: Acute Comment: Acute on chronic. Returned to baseline Renally dose meds and avoid nephrotoxins. Possibly related to Chonric Hepburn toxicity. (7) Thrombocytopenia Current Visit: Yes Status: Acute Code(s): D69.6 - THROMBOCYTOPENIA, UNSPECIFIED SNOMED Code(s): 436946776 Comment: Hx of thrombocytopenia. Stable. (8) DVT prophylaxis Current Visit: Yes Status: Acute Code(s): SAM8243 - SNOMED Code(s): 767195188 Comment: Continue SCDs Status and Disposition: . inpatient. Plan to return to psych unit when medically cleared.
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
[2018-05-03] MEDS: CloZAPine TAB* 100 MG TAB PO SCH ×2 (16:03→16:59)
[2018-05-03] MEDS ORDERED: DESMOPRESSIN 0.1 MG PO SCH (21:00)
[2018-05-04] MEDS: Nystatin CREAM* 30 GM TOPICAL SCH ×4 (00:01→17:42)
[2018-05-04] MEDS ORDERED: Haloperidol INJ IV/IM* 5 MG/ML AMP IM PRN (04:14)
[2018-05-04] MEDS ORDERED: Haloperidol INJ IV/IM* 5 MG/ML AMP ONE (04:19)
[2018-05-04 07:43] LABS: EGFR Non-African American 27.2 (>60)
--- NOTE | 2018-05-04 07:52 | PN ---
Subjective - Subjective Reason for Note: Consultation Note History: Endocrine follow up: This morning she is more alert, but she remains disoriented and unable to give an account of herself. She answers questions, but not appropriately. She denies headache, chest pain, vision problems and dyspnea Active Problems: Active Problems Change in mental status (Acute) R41.82 More alert this AM. Responds readily to questioning. Seizure vs Encephalopathy 2nd to medication toxicity in the setting of CKD EEG 88 suggestive of encephalopathy, these abnormalities could be seen in the setting of chronic lithium or lithium toxicity or possible seizure activity. 2nd repeat EEG [address] brain negative Psych restarted clonzapine now at 200mg. Chronic renal failure, stage 3 (moderate) (Acute) N18.3 Diuresis excessive (Acute) R35.8 Hypernatremia (Acute) E87.0 Stable on fluids. Patient has poor oral intake and would not be able to keep up with fluid losses in urine as she is putting out almost 4L daily. Unknown chronicity of polyuria. Possibly compensated to this point. Appreciate Endocrinology input. No indication for non-contrast MRI at this time. CKD precludes contrast. Begin Amilioride and DDAVP and monitor urine studies. Continue strict I+Os with ferreira in place. Stop D5W. Renal failure (Acute) Acute on chronic. Returned to baseline Renally dose meds and avoid nephrotoxins. 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 Secondary hyperparathyroidism (Acute) N25.81 Vitamin D deficiency (Acute) E55.9 DVT prophylaxis (Chronic) [id number] Continue SCDs GERD (gastroesophageal reflux disease) (Chronic) K21.9 Continue Pantoprazole Schizoaffective disorder, bipolar type (Chronic) F25.0 Per sister at her baseline she is high functioning and psychosis has been stable for at least 12 years. 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 [place] following Consideration of sarah beth leading to hospitalization and current lethargy from previous profound sleep deprivation or negative symptoms of psychosis. Until DI ruled out would not suggest restarting lithium. If additional mood stabilization needed an antiepileptic agent would likely be preferred due to possibility of seizure. Thrombocytopenia (Chronic) D69.6 Hx of thrombocytopenia. Stable. Current Medications: Current Medications Acetaminophen (Tylenol Supp*) 650 mg MS Q6H PRN PRN Reason: FEVER/PAIN Al Hydrox/Mg Hydrox/Simethicone (Maalox Plus*) 30 ml PO Q4H PRN PRN Reason: INDIGESTION Amiloride HCl (Midamor Tab*) 5 mg PO DAILY [facility] Last Admin: 05/03/18 10:50 Dose: 5 mg Buspirone HCl (Buspar Tab*) 10 mg PO DAILY [facility] Last Admin: 05/03/18 10:50 Dose: 10 mg Clozapine (Clozapine Tab*) 200 mg PO BEDTIME [facility] Last Admin: 05/03/18 16:59 Dose: Not Given Desmopressin Acetate (Desmopressin Tab (Nf)) 0.1 mg PO BID [facility] Last Admin: 05/03/18 21:54 Dose: 0.1 mg Ferrous Sulfate (Ferrous Sulfate Tab*) 325 mg PO DAILY [facility] Last Admin: 05/03/18 10:50 Dose: 325 mg Haloperidol Lactate (Haldol Inj Iv/Im*) 5 mg IM ONCE PRN PRN Reason: AGITATION Last Admin: 05/04/18 04:22 Dose: 5 mg Nystatin (Nystatin Cream*) 1 applic TOPICAL Q6H [facility] Last Admin: 05/04/18 05:20 Dose: Not Given Pantoprazole Sodium (Protonix Iv*) 40 mg IV DAILY [facility] Last Admin: 05/03/18 08:24 Dose: 40 mg Home Medications: Home Medications Medication Instructions Recorded Confirmed Type Acetaminophen [Acetaminophen Extra 500 mg PO Q4H PRN 04/25/18 04/26/18 History Strength] Buspirone HCl 10 mg PO DAILY 04/25/18 04/26/18 History CloZAPine TAB* 300 mg PO BEDTIME 04/25/18 04/26/18 History Ferrous Sulfate [Feosol] 1 tab PO DAILY 04/25/18 04/26/18 History Pierce Carbonate 1 cap PO BEDTIME 04/25/18 04/26/18 History Loperamide HCl [Anti-Diarrheal] 15 ml PO SEE INSTRUCTIONS PRN 04/25/18 04/26/18 History Multivitamin [Daily Multiple 1 tab PO DAILY 04/25/18 04/26/18 History Vitamin] Nystatin CREAM* [Nystatin Cream*] 1 applic TOPICAL Q6H 04/25/18 04/26/18 History Nystatin SUSPENSION* 1 teasp PO Q6H 04/25/18 04/26/18 History Oxymetazoline 0.05% NASAL SPR* 2 spray BOTH NARES BID PRN 04/25/18 04/26/18 History [Afrin 0.05% NASAL SPRAY*] Allergies: Allergies Allergy/AdvReac Type Severity Reaction Status Date / Time No Known Allergies Allergy Verified 04/25/18 17:47 Objective - Vital Signs Vital Signs: Vital Signs 05/03/18 05/03/18 05/03/18 08:00 11:16 15:11 Temperature 98.3 F 97.8 F Pulse Rate 77 72 Respiratory 16 16 12 Rate Blood Pressure 151/80 167/72 (mmHg) O2 Sat by Pulse 98 100 100 Oximetry 05/03/18 05/03/18 05/03/18 16:00 19:35 20:00 Temperature 98.3 F Pulse Rate 97 Respiratory 16 16 Rate Blood Pressure (mmHg) O2 Sat by Pulse 100 96 Oximetry 05/03/18 05/04/18 05/04/18 23:49 03:23 03:28 Temperature 98.2 F 97.7 F Pulse Rate 85 80 Respiratory 16 16 Rate Blood Pressure 170/81 168/85 (mmHg) O2 Sat by Pulse 100 97 Oximetry - Intake and Output Intake and Output: Intake & Output 05/01/18 05/02/18 05/03/18 05/04/18 11:59 11:59 11:59 11:59 Intake Total 4614 2713 3226 1466 Output Total 5175 4250 3725 2325 Banner -561 -1537 -499 -859 Intake: IV Fluids 2694 2193 3186 326 D5W 1484 3186 326 NS (0.45%) 2694 709 Oral 1920 361 16 7163 Output: Urine 0 Ferreira 5175 4250 3725 2325 Other: Date of Last Bowel 04/30/18 Movement # Bowel Movements 0 0 0 0 Estimated Stool Amount Medium ADLs: Meal Record Start: 04/27/18 15: 23 Freq: Status: Complete Protocol: Created 04/27/18 15:23 System (Rec: 04/27/18 15:23 System [id number]) ADLs: Meal Record Start: 04/27/18 23: 44 Freq: ,, Status: Complete Protocol: Created 04/27/18 23:44 [id number] (Rec: 04/27/18 23:44 [id number] ICU-M24) Document 04/28/18 14:00 [id number] (Rec: 04/28/18 14:03 [id number] ICU-C07) ADLs: Meal Record Start: 04/28/18 15: 01 Freq: DAILY@0900,1400,1800 Status: Active Protocol: Created 04/28/18 15:01 [id number] (Rec: 04/28/18 15:01 [id number] MED-C03) Document 04/28/18 17:37 [id number] (Rec: 04/28/18 17:37 [id number] MED-C11) Document 04/29/18 09:00 [id number] (Rec: 04/29/18 12:01 [id number] MED-C13) Document 04/29/18 14:00 [id number] (Rec: 04/29/18 14:59 [id number] MED-C13) Document 04/29/18 17:44 [id number] (Rec: 04/29/18 17:45 [id number] MED-M04) Document 04/30/18 09:00 HVP0981 (Rec: 04/30/18 09:18 [id number] MED-M04) Document 04/30/18 14:00 OZD3235 (Rec: 04/30/18 14:07 [id number] MED-C11) Document 04/30/18 18:00 AFY2575 (Rec: 04/30/18 18:24 [id number] MED-C07) Document 05/01/18 09:00 [id number] (Rec: 05/01/18 10:52 WFJ1125 MED-C09) Document 05/01/18 14:00 UYM5557 (Rec: 05/01/18 14:46 GWS2272 MED-C11) Document 05/02/18 09:00 [id number] (Rec: 05/02/18 11:56 NRM1020 MED-C13) Document 05/02/18 13:55 [id number] (Rec: 05/02/18 13:57 EOK2642 MED-C13) Document 05/02/18 18:00 QBQ6576 (Rec: 05/02/18 18:29 KDM1244 MED-C16) Document 05/03/18 09:00 CZF8077 (Rec: 05/03/18 13:05 PFY0876 MED-C13) Document 05/03/18 13:06 [id number] (Rec: 05/03/18 13:10 IAN7556 MED-C13) Document 05/03/18 18:00 TUM9713 (Rec: 05/03/18 18:04 [id number] MED-C13) Intake and Output Start: 04/26/18 08: 03 Freq: Status: Complete Protocol: Created 04/26/18 08:03 System (Rec: 04/26/18 08:03 System ED-C24) Intake and Output Start: 04/27/18 23: 44 Freq: Q1HR Status: Complete Protocol: Created 04/27/18 23:44 [id number] (Rec: 04/27/18 23:44 [id number] ICU-M24) Document 04/28/18 00:00 [id number] (Rec: 04/28/18 00:52 [id number] ICU-M24) Document 04/28/18 01:00 SMG5252 (Rec: 04/28/18 01:52 [id number] ICU-L03) Document 04/28/18 01:54 [id number] (Rec: 04/28/18 01:54 ZAM5265 ICU-M24) Document 04/28/18 03:00 HMO6288 (Rec: 04/28/18 03:18 ORW9454 ICU-L03) Document 04/28/18 04:00 PEQ9446 (Rec: 04/28/18 04:52 [id number] ICU-L03) Document 04/28/18 05:00 EYC6894 (Rec: 04/28/18 05:15 MZQ6856 ICU-L03) Document 04/28/18 06:00 MZQ1530 (Rec: 04/28/18 06:11 YTF2310 ICU-M24) Document 04/28/18 07:00 TWT7587 (Rec: 04/28/18 08:48 [id number] ICU-M19) Document 04/28/18 08:00 DWD1265 (Rec: 04/28/18 08:48 [id number] ICU-M19) Document 04/28/18 08:48 QAC2712 (Rec: 04/28/18 08:48 [id number] ICU-M19) Document 04/28/18 10:50 QOG0592 (Rec: 04/28/18 10:50 [id number] ICU-C07) Document 04/28/18 12:00 [id number] (Rec: 04/28/18 13:17 RFV2265 ICU-C07) Document 04/28/18 14:00 JTJ6146 (Rec: 04/28/18 14:15 VTT9225 ICU-C07) Intake and Output Start: 04/28/18 15: 01 Freq: DAILY@0600,1400,2200 Status: Active Protocol: Created 04/28/18 15:01 [id number] (Rec: 04/28/18 15:01 [id number] MED-C03) Document 04/28/18 22:00 ZZY6826 (Rec: 04/28/18 22:14 VXZ5399 MED-C11) Document 04/29/18 06:00 ROM9940 (Rec: 04/29/18 06:24 MPH7897 MED-C09) Document 04/29/18 14:00 YPE9434 (Rec: 04/29/18 14:59 FGT8419 MED-C13) Document 04/29/18 21:16 RJX8475 (Rec: 04/29/18 21:20 UHP1480 MED-M04) Document 04/30/18 08:23 [id number] (Rec: 04/30/18 08:23 MHY1370 MED-M04) Document 04/30/18 14:00 DKM4814 (Rec: 04/30/18 14:07 JPQ3761 MED-C11) Document 04/30/18 22:00 RCM3676 (Rec: 04/30/18 22:24 EHG3546 MED-C07) Document 05/01/18 05:47 [id number] (Rec: 05/01/18 05:47 YQR0676 MED-M21) Document 05/01/18 06:00 [id number] (Rec: 05/01/18 06:15 QAI6347 MED-C09) Document 05/01/18 14:00 DCC1853 (Rec: 05/01/18 14:46 [id number] MED-C11) Document 05/01/18 22:00 BWI8060 (Rec: 05/01/18 22:31 CXU2585 MED-C26) Document 05/02/18 04:43 DZJ1700 (Rec: 05/02/18 04:44 [id number] MED-C02) Document 05/02/18 13:55 MPH2795 (Rec: 05/02/18 13:57 MVM0108 MED-C13) Document 05/02/18 22:00 OZU1353 (Rec: 05/02/18 22:14 [id number] MED-C02) Document 05/03/18 06:00 JWQ7573 (Rec: 05/03/18 06:14 VQM6669 MED-C02) Document 05/03/18 13:58 [id number] (Rec: 05/03/18 13:59 [id number] MED-C13) Document 05/03/18 18:08 KCD1241 (Rec: 05/03/18 18:08 [id number] MED-C13) Document 05/03/18 22:00 [id number] (Rec: 05/03/18 22:23 [id number] MED-M20) Document 05/03/18 23:18 [id number] (Rec: 05/03/18 23:19 [id number] MED-M20) Document 05/04/18 06:00 UWL0310 (Rec: 05/04/18 06:24 [id number] MED-M20) - Physical Exam General: No Cyanosis, No Anemia, No Jaundice, No Clubbing Lungs and Chest: Yes: Chest Expansion Full, Chest Expansion Symetrica, Percussion Note Resonant, Vessicular Breath Sounds. No: Crackles, Wheezes Heart Rate and Rhythm: Regular JVP: Not Elevated Additional Cardiovascular: Yes: Normal Heart Sounds. No: Heart Murmur, Pedal Edema Abdominal Exam: Yes: Soft, Bowel Sounds Present. No: Distention, Abdominal Tenderness Results - Results Lab Results: Laboratory Results - last 24 hr 05/02/18 05/03/18 05/03/18 05:13 06:32 06:32 Sodium 146 H Potassium 3.5 Chloride 118 H Carbon Dioxide 22 Anion Gap 6 BUN 11 Creatinine 1.98 H Est GFR ( Amer) 30.8 Est GFR (Non-Af Amer) 25.5 BUN/Creatinine Ratio 5.6 L Glucose 152 H Calcium 8.8 25-OH Vitamin D Total 19.0 L Free T4 1.08 Free T3 2.50 Total T3 66 L PTH Intact 13.4 H Calcium (PTH Intact) 8.7 Cortisol 13.79 Cancelled Urine Osmolality 05/03/18 05/04/18 11:08 07:15 Sodium Potassium 3.8 Chloride Carbon Dioxide 23 Anion Gap BUN 12 Creatinine 1.87 H Est GFR ( Amer) 32.9 Est GFR (Non-Af Amer) 27.2 BUN/Creatinine Ratio 6.4 L Glucose 118 H Calcium 9.1 25-OH Vitamin D Total Free T4 Free T3 Total T3 PTH Intact Calcium (PTH Intact) Cortisol Urine Osmolality 101 L Assessment - Problem List Assessment: Patient Problems Change in mental status (Acute) Chronic renal failure, stage 3 (moderate) (Acute) Diuresis excessive (Acute) Hypernatremia (Acute) Renal failure (Acute) Secondary hyperparathyroidism (Acute) Vitamin D deficiency (Acute) DVT prophylaxis (Chronic) GERD (gastroesophageal reflux disease) (Chronic) Schizoaffective disorder, bipolar type (Chronic) Thrombocytopenia (Chronic) Anxiety (Acute) Plan: Diuresis excessive (Acute) Hypernatremia (Acute) I am trying to establish if this is due to diabetes insipidus and whether this is acute or chronic, central or nephrogenic. I have given her a therapeutic trial of amiloride and ddAVP. According to the MAR she has received 2 doses of ddAVP 0.1 mg. Given her mental state, I am not certain she swallowed them. However, her I and O for yesterday continues to show diuresis. I note she continues to have IVF and she has only now started to eat/drink a little. ddAVP in a normal individual would cause significant anti-diuresis and a small urine output and eventually a lowering of the serum sodium/osmolality. I will continue this therapeutic trial. I think we should stop her IVF as she is starting to drink/eat - I will leave this decision to her primary care team Change in mental status (Acute) She is more awake, but not oriented. This may be due to her psychosis, metabolic issues or seizures. Chronic renal failure, stage 3 Renal failure (Acute)(moderate) (Acute) I note her Cr is raised, she is mildly anemic. We don't have lab work for the past many years. I have put in a call to Dr. Shimon Beckett to determine if this is acute or chronic renal insufficiency Secondary hyperparathyroidism (Acute) This could be due to one of 2 issues - vitamin D deficiency or to renal osteodystrophy. I await information from Dr. Beckett and also her 1,25 OH dihydroxy vit D Vitamin D deficiency (Acute) This may be dietary - I will supplement. Anemia: Mild normochromic, normocytic anemia - this could be the anemia of renal failure, or due to other issues. Schizoaffective disorder, bipolar type (Chronic) I will connect with Dr. Jerry Love today Thrombocytopenia (Chronic) This may have been worked up previously, I will discuss with Dr. Beckett
[2018-05-04] MEDS: busPIRone TAB* 10 MG PO SCH (09:35)
[2018-05-04] MEDS: Pantoprazole IV* 40 MG IV SCH (09:40)
[2018-05-04] MEDS: DESMOPRESSIN 0.1 MG PO SCH ×2 (09:41→20:51)
[2018-05-04] MEDS: aMILoride TAB* 5 MG PO SCH ×2 (09:41→09:52)
[2018-05-04] MEDS: Ferrous Sulfate TAB* 325 MG PO SCH (09:41)
--- NOTE | 2018-05-04 12:03 | PN ---
Subjective Date of Service: 05/04/18 Interval History: Patient seen and examined at bedside. Pt is non-verbal, but is able to communicate with yes and no answers (makes a noise but no use of words). Denies fever, chills, shortness of breath, chest discomfort, N/V/D. Per [facility] staff Pt is able to talk and communicate. Family History: Unchanged from Admission Social History: Unchanged from Admission Past Medical History: Unchanged from Admission Objective Active Medications: Acetaminophen (Tylenol Supp*) 650 mg PA Q6H PRN Reason: FEVER/PAIN Al Hydrox/Mg Hydrox/Simethicone (Maalox Plus*) 30 ml PO Q4H PRN Reason: INDIGESTION Amiloride HCl (Midamor Tab*) 5 mg PO DAILY [facility] Buspirone HCl (Buspar Tab*) 10 mg PO DAILY [facility] Clozapine (Clozapine Tab*) 200 mg PO BEDTIME [facility] Desmopressin Acetate (Desmopressin Tab (Nf)) 0.1 mg PO BID [facility] Ferrous Sulfate (Ferrous Sulfate Tab*) 325 mg PO DAILY [facility] Haloperidol Lactate (Haldol Inj Iv/Im*) 5 mg IM ONCE PRN Reason: AGITATION Nystatin (Nystatin Cream*) 1 applic TOPICAL Q6H [facility] Pantoprazole Sodium (Protonix Iv*) 40 mg IV DAILY [facility] Vital Signs - 8 hr 05/04/18 05/04/18 07:47 07:58 Temperature 98.2 F Pulse Rate 75 Respiratory 17 16 Rate Blood Pressure 179/65 (mmHg) O2 Sat by Pulse 99 Oximetry Oxygen Devices in Use Now: None Appearance: NAD, laying in bed Ears/Nose/Mouth/Throat: Mucous Membranes Moist Respiratory: Symmetrical Chest Expansion and Respiratory Effort, Clear to Auscultation Cardiovascular: NL Sounds; No Murmurs; No JVD, RRR Abdominal: NL Sounds; No Tenderness; No Distention Extremities: No Edema Skin: No Rash or Ulcers Neurological: NL Muscle Strength and Tone, - - Alert, unable to determine orientation Nutrition: Taking PO's Result Diagrams: 05/03/18 06:32 05/04/18 07:15 Microbiology and Other Data: Microbiology 04/26/18 21:40 Urine Culture - Final Urine Diagnostic Imaging: Routine awake and sleep EEG completed 07/01/2018 was normal with sharp vertex waves which is non-specific and could suggest a normal variant. Assess/Plan/Problems-Billing Assessment: Ms. Pedraza is a 62 yo F with PMH significant for schizophrenia and depression presents with AMS/Lethargy and Renal failure. CAT call on 04/28 for lethargy/unresponsiveness with concern for seizures due to elevated prolactin who has no other signs of seizure but remains lethargic. - Patient Problems (1) Change in mental status Code(s): R41.82 - ALTERED MENTAL STATUS, UNSPECIFIED SNOMED Code(s): 491662083 Comment: - Alert but and responds to yes or no questioning - Suspect encephalopathy 2nd to medication toxicity in the setting of CKD - EEG 04/29 suggestive of encephalopathy, these abnormalities could be seen in the setting of chronic lithium or lithium toxicity or possible seizure activity. 2nd repeat EEG 05/01 normal - Brain CT negative - Continue clonzapine per Psych (2) Hypernatremia Code(s): E87.0 - HYPEROSMOLALITY AND HYPERNATREMIA SNOMED Code(s): 96468592 Comment: - Stable. Patient has poor oral intake (improving), she is putting out almost 3L daily - Unknown chronicity of polyuria. Possibly compensated to this point - No indication for non-contrast MRI at this time. CKD precludes contrast - Endocrinology consult, appreciate input - Continue Amilioride, DDAVP, monitor urine studies, strict I+Os with ferreira in place (3) Diuresis excessive Code(s): R35.8 - OTHER POLYURIA SNOMED Code(s): 90134397 Comment: - See above (4) Secondary hyperparathyroidism Code(s): N25.81 - SECONDARY HYPERPARATHYROIDISM OF RENAL ORIGIN SNOMED Code(s) : 47609365 Comment: - Suspect secondary to Vit D deficiency or renal osteodystrophy - Dr. De La Fuente following (5) Anemia Code(s): D64.9 - ANEMIA, UNSPECIFIED SNOMED Code(s): 029505362 Comment: - Mild normochromic, normocytic - Suspect secondary to ACD (6) Vitamin D deficiency Code(s): E55.9 - VITAMIN D DEFICIENCY, UNSPECIFIED SNOMED Code(s): 33411619 Comment: - Dr. De La Fuente following - Continue supplement (7) Thrombocytopenia Code(s): D69.6 - THROMBOCYTOPENIA, UNSPECIFIED SNOMED Code(s): 700276468 Comment: - Hx of thrombocytopenia, Stable (8) Schizoaffective disorder, bipolar type Code(s): F25.0 - SCHIZOAFFECTIVE DISORDER, BIPOLAR TYPE SNOMED Code(s): 45010561 Comment: - Per sister at her baseline she is high functioning and psychosis has been stable for at least 12 years. 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 If additional mood stabilization needed an antiepileptic agent would likely be preferred due to possibility of seizure (9) Anxiety Code(s): F41.9 - ANXIETY DISORDER, UNSPECIFIED SNOMED Code(s): 09345358 Comment: - Continue Buspirone (10) Chronic renal failure, stage 3 (moderate) Code(s): N18.3 - CHRONIC KIDNEY DISEASE, STAGE 3 (MODERATE) SNOMED Code(s): 24983749 Comment: - At baseline (11) GERD (gastroesophageal reflux disease) Code(s): K21.9 - GASTRO-ESOPHAGEAL REFLUX DISEASE WITHOUT ESOPHAGITIS SNOMED Code(s): 076691358 Comment: - Continue Pantoprazole (12) DVT prophylaxis Code(s): UZL4058 - SNOMED Code(s): 662675471 Comment: - Continue SCDs (13) Full code status Code(s): Z78.9 - OTHER SPECIFIED HEALTH STATUS SNOMED Code(s): 580657157 Status and Disposition: Inpatient. Plan to return to psych unit when medically cleared, possibly in 1-2 days.
--- NOTE | 2018-05-04 13:41 | PN ---
Progress Note - Progress Note Date of Service: 05/04/18 Note: Endocrine follow up note Conversation with Dr. Beckett - no labwork in his office since 2012. He has not seen her since 2014. She had a form for labs, in 2014, but never had this taken. The last Cr in his office was 1.[address] Love - She has pure schizophrenia - there is no manic/ affective disease component. She has been on a small dose of lithium (150 mg qdaily) for years and has been unwilling to stop this. He was unaware of her not having labs. He suggested I contact [facility] to determine if she had her neutrophil counts for the clozapine. He suggested she may have had a seizure due to rapid re-introduction of clozapine - this is a known problem. He states she does not need any mood stabilizer. She should not restart the lithium Conversation with [facility] - she has had her clozapine filled every month, for which she needs to have a WBC. I checked the hospital labs - indeed these were being drawn - but nothing else. Impression: This is a vulnerable patient with schizophrenia who has not received follow up at her primary care or with her psychiatrist for some years due to non-compliance and despite their attempts to bring her in for visits. The renal failure may indeed be more chronic (as her US kidneys suggests). She doesn't need lithium. Nor does she need any mood stabilizer. Now she is back on clozapine her mental state should improve, unless she has had some brain injury as a result of her episode of unresponsiveness. None of this gives a clear clue as to whether she has or why she should have diabetes insipidus ( either central or nephrogenic).
--- NOTE | 2018-05-04 15:45 | CONSULT ---
Identification - Patient Identification Reason for Psychiatric Consultation: Incapacitating Symptoms -: Patient is a 62 year old, F admitted on 04/27/18. - MHU Identification Employment Status: Disabled Hx Psychiatric Hospitalization: Yes History - Objective HPI: Skylar is seen for follow up by the psych consult team today and I spoke at length with her sister, Mayte Pedraza, who is visiting from [place]. Skylar remains confused and poorly oriented to time, place and situation. She makes little in the way of spontaneous speech and when speaking she still makes non-sequiturs, such as "That girl Kusum that I grew up with was a perfect franki." She is tolerating clozapine will and her follow up EEG at the end of last week was negative for epileptiform changes. The patient denies SI or HI but appears limited in self-care. Exam Appearance: Well Developed/Nourished Hygiene: Normal Grooming: Fairly Well Kept Psychomotor Activities: Abnormal-Decreased Exhibits Abnormal Movement: No Attitude and Relatedness: Psychotically Related Eye Contact: Poor - Speech Quality: Unpressured Latencies: Long Quantity: Terse Patient's Decription of Mood: "Okay" Observed Affect: Fair Affect Consistent with: Euthymia Patient's Thought Process: Impoverished Thought Content: Yes Paranoid Ideation, No Passive Wish, No Suicidal Planning, No Homicidal Ideation Experiencing Hallucinations: No, Sensorium is Clear Type of Hallucinations: Visual: No, Auditory: No, Command: No Level of Consciousness: Alert Orientation: Yes Orientated to Person, No Intact, No Orientated to Time, No Orientated to Place Impulse Control: Poor Insight and Judgement: Impaired Impression - Impression Clinical Impression: 62 y.o. single, never , white female with Hx of severe/persistent schizophrenia, residing at a [facility] residence, admitted to the [facility] on 04/27/18 for thought disorganization and poor self-care in the setting of self- discontinuation of psychotropic medications, then transferred to the Hospitalist service following an episode of unresponsiveness. She currently presents with delirium secondary to kidney disfunction, prolonged insomnia versus possible seizure??? Inpatient DSM-V Dx: R41.0 Merits Inpatient Hospitalization: Yes Problem List - MHU Problems Type of Problem: Medication Management Status of Problem: Active Plan - Treatment Plan Treatment Plan: The patient awaits further medical/neurological stabilization. Refer to hospitalist and neurology notes. [place] of limited clinical utility per Dr. Santy Love, outaptient psychiatrist. We have resumed clozapine, albeit cautiously, at the 200mg nightly dose. Will increase this to 250mg tonight. Psychiatry will continue to follow and she will likely be transferred back to the [facility] once medically/neurologically stable and no longer encephalopathic. Continued Medication Management: Continue Outpt Medication Medications: Current Medications Acetaminophen (Tylenol Supp*) 650 mg [place] Q6H PRN PRN Reason: FEVER/PAIN Al Hydrox/Mg Hydrox/Simethicone (Maalox Plus*) 30 ml PO Q4H PRN PRN Reason: INDIGESTION Amiloride HCl (Midamor Tab*) 5 mg PO DAILY [facility] Last Admin: 05/04/18 09:52 Dose: Not Given Buspirone HCl (Buspar Tab*) 10 mg PO DAILY [facility] Last Admin: 05/04/18 09:35 Dose: 10 mg Clozapine (Clozapine Tab*) 250 mg PO BEDTIME [facility] Desmopressin Acetate (Desmopressin Tab (Nf)) 0.1 mg PO BID [facility] Last Admin: 05/04/18 09:41 Dose: Not Given Ferrous Sulfate (Ferrous Sulfate Tab*) 325 mg PO DAILY [facility] Last Admin: 05/04/18 09:41 Dose: Not Given Haloperidol Lactate (Haldol Inj Iv/Im*) 5 mg IM ONCE PRN PRN Reason: AGITATION Last Admin: 05/04/18 04:22 Dose: 5 mg Nystatin (Nystatin Cream*) 1 applic TOPICAL Q6H [facility] Last Admin: 05/04/18 11:06 Dose: Not Given Pantoprazole Sodium (Protonix Iv*) 40 mg IV DAILY [facility] Last Admin: 05/04/18 09:40 Dose: 40 mg - Discharge Plan Discharge Plan: Inpatient Hospitalization
[2018-05-04] MEDS ORDERED: Haloperidol INJ IV/IM* 5 MG/ML AMP IV SLOW PU PRN (20:17)
[2018-05-04] MEDS ORDERED: CloZAPine TAB* 100 MG TAB PO SCH (21:00)
--- NOTE | 2018-05-04 22:52 | PN ---
Progress Note - Progress Note Date of Service: 05/04/18 Note: Patient pulled out ferreira a second time. Agitated this evening, requiring haldol. Will keep ferreira out this evening. Bladder scan ordered.
[2018-05-05] MEDS: Nystatin CREAM* 30 GM TOPICAL SCH ×3 (00:08→13:06)
[2018-05-05 07:40] LABS: EGFR Non-African American 25.6 (>60)
--- NOTE | 2018-05-05 08:27 | PN ---
Subjective - Subjective Reason for Note: Consultation Note History: She is much more conversational today. She knows she is [place], but was unable to tell me she is in the hospital or to give an account of herself. She pulled out her urinary catheter. She denies focal symptoms - in particular she denies excessive thirst. Active Problems: Active Problems Anemia (Acute) D64.9 - Mild normochromic, normocytic - Suspect secondary to ACD Change in mental status (Acute) R41.82 - Alert but and responds to yes or no questioning - Suspect encephalopathy 2nd to medication toxicity in the setting of CKD - EEG 04/29 suggestive of encephalopathy, these abnormalities could be seen in the setting of chronic lithium or lithium toxicity or possible seizure activity. 2nd repeat EEG 05/01 normal - Brain CT negative - Continue clonzapine per Psych Diuresis excessive (Acute) R35.8 - See above Full code status (Acute) Z78.9 Hypernatremia (Acute) E87.0 - Stable. Patient has poor oral intake (improving), she is putting out almost 3L daily - Unknown chronicity of polyuria. Possibly compensated to this point - No indication for non-contrast MRI at this time. CKD precludes contrast - Endocrinology consult, appreciate input - Continue Amilioride, DDAVP, monitor urine studies, strict I+Os with ferreira in place Renal failure (Acute) Acute on chronic. Returned to baseline Renally dose meds and avoid nephrotoxins. Possibly related to Chonric Dustin toxicity. Secondary hyperparathyroidism (Acute) N25.81 - Suspect secondary to Vit D deficiency or renal osteodystrophy - Dr. De La Fuente following Vitamin D deficiency (Acute) E55.9 - Dr. De La Fuente following - Continue supplement Anxiety (Chronic) F41.9 - Continue Buspirone Chronic renal failure, stage 3 (moderate) (Chronic) N18.3 - At baseline DVT prophylaxis (Chronic) [id number] - Continue SCDs Schizophrenia (Chronic) F20.9 Thrombocytopenia (Chronic) D69.6 - Hx of thrombocytopenia, Stable Current Medications: Current Medications Acetaminophen (Tylenol Supp*) 650 mg [place] Q6H PRN PRN Reason: FEVER/PAIN Al Hydrox/Mg Hydrox/Simethicone (Maalox Plus*) 30 ml PO Q4H PRN PRN Reason: INDIGESTION Amiloride HCl (Midamor Tab*) 5 mg PO DAILY [facility] Last Admin: 05/04/18 09:52 Dose: Not Given Buspirone HCl (Buspar Tab*) 10 mg PO DAILY [facility] Last Admin: 05/04/18 09:35 Dose: 10 mg Clozapine (Clozapine Tab*) 250 mg PO BEDTIME [facility] Last Admin: 05/04/18 20:50 Dose: 250 mg Desmopressin Acetate (Desmopressin Tab (Nf)) 0.2 mg PO BID [facility] Ferrous Sulfate (Ferrous Sulfate Tab*) 325 mg PO DAILY [facility] Last Admin: 05/04/18 09:41 Dose: Not Given Haloperidol Lactate (Haldol Inj Iv/Im*) 5 mg IV SLOW PU Q6H PRN PRN Reason: AGITATION Last Admin: 05/04/18 20:36 Dose: 5 mg Nystatin (Nystatin Cream*) 1 applic TOPICAL Q6H [facility] Last Admin: 05/05/18 05:58 Dose: Not Given Pantoprazole Sodium (Protonix Iv*) 40 mg IV DAILY [facility] Last Admin: 05/04/18 09:40 Dose: 40 mg Home Medications: Home Medications Medication Instructions Recorded Confirmed Type Acetaminophen [Acetaminophen Extra 500 mg PO Q4H PRN 04/25/18 04/26/18 History Strength] Buspirone HCl 10 mg PO DAILY 04/25/18 04/26/18 History CloZAPine TAB* 300 mg PO BEDTIME 04/25/18 04/26/18 History Ferrous Sulfate [Feosol] 1 tab PO DAILY 04/25/18 04/26/18 History Dustin Carbonate 1 cap PO BEDTIME 04/25/18 04/26/18 History Loperamide HCl [Anti-Diarrheal] 15 ml PO SEE INSTRUCTIONS PRN 04/25/18 04/26/18 History Multivitamin [Daily Multiple 1 tab PO DAILY 04/25/18 04/26/18 History Vitamin] Nystatin CREAM* [Nystatin Cream*] 1 applic TOPICAL Q6H 04/25/18 04/26/18 History Nystatin SUSPENSION* 1 teasp PO Q6H 04/25/18 04/26/18 History Oxymetazoline 0.05% NASAL SPR* 2 spray BOTH NARES BID PRN 04/25/18 04/26/18 History [Afrin 0.05% NASAL SPRAY*] Allergies: Allergies Allergy/AdvReac Type Severity Reaction Status Date / Time No Known Allergies Allergy Verified 04/25/18 17:47 Objective - Vital Signs Vital Signs: Vital Signs 05/04/18 05/04/18 05/04/18 15:29 16:20 19:29 Temperature 97.9 F 97.9 F Pulse Rate 76 72 78 Respiratory 17 16 Rate Blood Pressure 191/38 160/70 171/65 (mmHg) O2 Sat by Pulse 100 100 Oximetry 05/04/18 05/04/18 05/05/18 20:00 23:33 00:00 Temperature 97.4 F Pulse Rate 112 Respiratory 16 Rate Blood Pressure 153/83 (mmHg) O2 Sat by Pulse 100 100 Oximetry 05/05/18 05/05/18 05/05/18 03:35 07:19 07:21 Temperature 98.3 F 97.9 F Pulse Rate 89 86 84 Respiratory 16 18 Rate Blood Pressure 153/82 177/86 (mmHg) O2 Sat by Pulse 99 100 Oximetry - Intake and Output Intake and Output: Intake & Output 05/02/18 05/03/18 05/04/18 05/05/18 11:59 11:59 11:59 11:59 Intake Total 2713 3226 1946 790 Output Total 4250 3725 2325 2500 Balance -1537 -499 -379 -1710 Intake: IV Fluids 2193 3186 326 10 D5W 1484 3186 326 NS (0.45%) 709 NS (0.9%) 10 Oral 846 37 3644 780 Output: Urine 1175 Ferreira 4250 3725 2325 1325 Other: Estimated Void Small # Bowel Movements 0 0 0 0 # Voids 1 ADLs: Meal Record Start: 04/27/18 15: 23 Freq: Status: Complete Protocol: Created 04/27/18 15:23 System (Rec: 04/27/18 15:23 System U-C08) ADLs: Meal Record Start: 04/27/18 23: 44 Freq: ,13,18 Status: Complete Protocol: Created 04/27/18 23:44 [id number] (Rec: 04/27/18 23:44 [id number] ICU-M24) Document 04/28/18 14:00 FRT6557 (Rec: 04/28/18 14:03 [id number] ICU-C07) ADLs: Meal Record Start: 04/28/18 15: 01 Freq: DAILY@0900,1400,1800 Status: Active Protocol: Created 04/28/18 15:01 [id number] (Rec: 04/28/18 15:01 EVK4122 MED-C03) Document 04/28/18 17:37 [id number] (Rec: 04/28/18 17:37 SIQ1265 MED-C11) Document 04/29/18 09:00 HRC9826 (Rec: 04/29/18 12:01 HIX5213 MED-C13) Document 04/29/18 14:00 KQP5118 (Rec: 04/29/18 14:59 IUI2577 MED-C13) Document 04/29/18 17:44 [id number] (Rec: 04/29/18 17:45 CYR0869 MED-M04) Document 04/30/18 09:00 KEK7588 (Rec: 04/30/18 09:18 [id number] MED-M04) Document 04/30/18 14:00 DKM0092 (Rec: 04/30/18 14:07 OIE5213 MED-C11) Document 04/30/18 18:00 BTO2040 (Rec: 04/30/18 18:24 JUZ0193 MED-C07) Document 05/01/18 09:00 JLW1333 (Rec: 05/01/18 10:52 UBD4471 MED-C09) Document 05/01/18 14:00 XMB5223 (Rec: 05/01/18 14:46 RRV8198 MED-C11) Document 05/02/18 09:00 GHM5389 (Rec: 05/02/18 11:56 HFZ6862 MED-C13) Document 05/02/18 13:55 KBN0939 (Rec: 05/02/18 13:57 SOD9514 MED-C13) Document 05/02/18 18:00 QER9871 (Rec: 05/02/18 18:29 HHI5186 MED-C16) Document 05/03/18 09:00 TAU1887 (Rec: 05/03/18 13:05 IAB5959 MED-C13) Document 05/03/18 13:06 JFZ4007 (Rec: 05/03/18 13:10 AAN2160 MED-C13) Document 05/03/18 18:00 PVA2393 (Rec: 05/03/18 18:04 DDU2497 MED-C13) Document 05/04/18 09:00 BNZ1433 (Rec: 05/04/18 09:42 KBY4441 MED-C09) Document 05/04/18 14:00 OMO7208 (Rec: 05/04/18 14:07 QCR4021 MED-C11) Document 05/04/18 18:00 GTQ8240 (Rec: 05/04/18 18:22 VJT0860 MED-C09) Intake and Output Start: 04/26/18 08: 03 Freq: Status: Complete Protocol: Created 04/26/18 08:03 System (Rec: 04/26/18 08:03 System ED-C24) Intake and Output Start: 04/27/18 23: 44 Freq: Q1HR Status: Complete Protocol: Created 04/27/18 23:44 [id number] (Rec: 04/27/18 23:44 QXL8119 ICU-M24) Document 04/28/18 00:00 XWM3444 (Rec: 04/28/18 00:52 ADJ3671 ICU-M24) Document 04/28/18 01:00 ARM6601 (Rec: 04/28/18 01:52 EZE5525 ICU-L03) Document 04/28/18 01:54 MEZ0365 (Rec: 04/28/18 01:54 NWX4680 ICU-M24) Document 04/28/18 03:00 RLL6634 (Rec: 04/28/18 03:18 LNK2361 ICU-L03) Document 04/28/18 04:00 ZXR7997 (Rec: 04/28/18 04:52 IEQ3056 ICU-L03) Document 04/28/18 05:00 COY6032 (Rec: 04/28/18 05:15 JRC5228 ICU-L03) Document 04/28/18 06:00 BDN0748 (Rec: 04/28/18 06:11 LEW8219 ICU-M24) Document 04/28/18 07:00 HYF0575 (Rec: 04/28/18 08:48 WEI9419 ICU-M19) Document 04/28/18 08:00 QBJ3938 (Rec: 04/28/18 08:48 ZHM0030 ICU-M19) Document 04/28/18 08:48 XJO8613 (Rec: 04/28/18 08:48 NUW0660 ICU-M19) Document 04/28/18 10:50 BWW7551 (Rec: 04/28/18 10:50 ULK8809 ICU-C07) Document 04/28/18 12:00 XXE3340 (Rec: 04/28/18 13:17 OLB3887 ICU-C07) Document 04/28/18 14:00 ZWD3992 (Rec: 04/28/18 14:15 XWU3447 ICU-C07) Intake and Output Start: 04/28/18 15: 01 Freq: DAILY@0600,1400,2200 Status: Active Protocol: Created 04/28/18 15:01 NHW8153 (Rec: 04/28/18 15:01 KTA3381 MED-C03) Document 04/28/18 22:00 DXE3194 (Rec: 04/28/18 22:14 DZV8052 MED-C11) Document 04/29/18 06:00 YTM0755 (Rec: 04/29/18 06:24 VDZ9632 MED-C09) Document 04/29/18 14:00 QUU5514 (Rec: 04/29/18 14:59 USZ2147 MED-C13) Document 04/29/18 21:16 ZDX6652 (Rec: 04/29/18 21:20 PGO0380 MED-M04) Document 04/30/18 08:23 HWM8363 (Rec: 04/30/18 08:23 DTL3139 MED-M04) Document 04/30/18 14:00 DSM7903 (Rec: 04/30/18 14:07 LZN7061 MED-C11) Document 04/30/18 22:00 NTX7531 (Rec: 04/30/18 22:24 QKV5253 MED-C07) Document 05/01/18 05:47 MLJ8794 (Rec: 05/01/18 05:47 PEI5463 MED-M21) Document 05/01/18 06:00 FIM7026 (Rec: 05/01/18 06:15 LHA0276 MED-C09) Document 05/01/18 14:00 OQA4488 (Rec: 05/01/18 14:46 BGB4974 MED-C11) Document 05/01/18 22:00 LGZ5261 (Rec: 05/01/18 22:31 DPJ7185 MED-C26) Document 05/02/18 04:43 YPN1029 (Rec: 05/02/18 04:44 EDB9593 MED-C02) Document 05/02/18 13:55 TYR6309 (Rec: 05/02/18 13:57 YHW4571 MED-C13) Document 05/02/18 22:00 MUO0450 (Rec: 05/02/18 22:14 XLB9958 MED-C02) Document 05/03/18 06:00 YEK7541 (Rec: 05/03/18 06:14 ORW6310 MED-C02) Document 05/03/18 13:58 IDQ9044 (Rec: 05/03/18 13:59 XAK0587 MED-C13) Document 05/03/18 18:08 QCH1991 (Rec: 05/03/18 18:08 JBW5396 MED-C13) Document 05/03/18 22:00 XOY6744 (Rec: 05/03/18 22:23 SBB1679 MED-M20) Document 05/03/18 23:18 HRL0764 (Rec: 05/03/18 23:19 WID7086 MED-M20) Document 05/04/18 06:00 JPN3817 (Rec: 05/04/18 06:24 ZLC8497 MED-M20) Document 05/04/18 09:43 FQA3669 (Rec: 05/04/18 09:43 IWW7349 MED-C09) Document 05/04/18 13:58 JUP5164 (Rec: 05/04/18 14:01 CLE3705 MED-M01) Document 05/04/18 14:00 IFH0065 (Rec: 05/04/18 14:07 JGL8693 MED-C11) Document 05/04/18 21:00 UWP0007 (Rec: 05/04/18 21:56 ITN6385 MED-M01) Document 05/04/18 22:00 EPW5761 (Rec: 05/04/18 22:34 BQM6202 MED-M20) Document 05/05/18 03:15 RRM0987 (Rec: 05/05/18 03:22 ZJQ0537 MED-C09) Document 05/05/18 04:29 UKG7757 (Rec: 05/05/18 04:29 WGH7995 MED-C12) - Physical Exam General: No Cyanosis, No Anemia, No Jaundice, No Clubbing Lungs and Chest: Yes: Chest Expansion Full, Chest Expansion Symetrica, Percussion Note Resonant, Vessicular Breath Sounds. No: Crackles, Wheezes Heart Rate and Rhythm: Regular JVP: Not Elevated Additional Cardiovascular: Yes: Normal Heart Sounds. No: Pedal Edema Results - Results Lab Results: Laboratory Results - last 24 hr 05/05/18 07:06 Sodium 145 Potassium 3.6 Carbon Dioxide 24 BUN 14 Creatinine 1.97 H Est GFR ( Amer) 31.0 Est GFR (Non-Af Amer) 25.6 BUN/Creatinine Ratio 7.1 L Glucose 109 H Calcium 9.3 Assessment - Problem List Assessment: Patient Problems Anemia (Acute) Change in mental status (Acute) Diuresis excessive (Acute) Full code status (Acute) Hypernatremia (Acute) Renal failure (Acute) Secondary hyperparathyroidism (Acute) Vitamin D deficiency (Acute) Anxiety (Chronic) Chronic renal failure, stage 3 (moderate) (Chronic) DVT prophylaxis (Chronic) Schizophrenia (Chronic) Thrombocytopenia (Chronic) GERD (gastroesophageal reflux disease) (Chronic) Plan: Diuresis excessive (Acute) Hypernatremia (Acute) This is looking more like nephrogenic diabetes insipidus - her urine output didn't appreciably slow with DDAVP 0.1 mg twice daily and amiloride. I will increase this to 0.2 mg twice daily. A Google search comes up with a report of clozaril associated with diabetes insipidus. I will look into this more rigorously. Here is the URL [email or web address] I will discuss this also with pharmacy and Dr. Ponce to see if this is a likely culprit for her DI and if there are any other medications we can give her without her having this problem Anemia (Acute) he B12 is normal. I will check her ferritin/iron panel Change in mental status (Acute) she is improving Chronic renal failure, stage 3 (moderate) (Chronic) Renal failure (Acute) She has had no recent tests of her renal function - but her last one recorded by Dr. Beckett in 2014 was a creatinine of 1.6. I think she has stage 3 chronic renal failure with mild renal osteodystrophy and anemia. I will replete her vitamin D before recommending any further treatment for her bone disease. Secondary hyperparathyroidism (Acute) either vit D deficiency or renal osteodystrophy Vitamin D deficiency (Acute) see above Schizophrenia: According to Dr. Jerry Love this is pure schizophrenia. She has no bipolar affective disease. She took lithium carbonate 150 mg qdaily merely because she didn't want to stop it. This is a small dose. He states she doesn't need this medication. I will discus diabetes insipidus and clozapine with psychiatric team
[2018-05-05] MEDS ORDERED: CMCS: Desmopressin TAB (NF) 0.1 MG TAB PO SCH (09:00)
--- NOTE | 2018-05-05 09:20 | PN ---
Subjective Date of Service: 05/05/18 Interval History: Patient seen and examined at bedside. Denies fever, chills, shortness of breath , chest discomfort, N/V/D. Per Dr. De La Fuente Pt was talking this AM. She continues to not talk to me today, but will answer yes and no questions. She is alert and sitting in the bed. Events of overnight noted, Pt removed ferreira catheter and it was left out. Family History: Unchanged from Admission Social History: Unchanged from Admission Past Medical History: Unchanged from Admission Objective Active Medications: Acetaminophen (Tylenol Supp*) 650 mg [place] Q6H PRN Reason: FEVER/PAIN Al Hydrox/Mg Hydrox/Simethicone (Maalox Plus*) 30 ml PO Q4H PRN Reason: INDIGESTION Amiloride HCl (Midamor Tab*) 5 mg PO DAILY [facility] Buspirone HCl (Buspar Tab*) 10 mg PO DAILY [facility] Clozapine (Clozapine Tab*) 250 mg PO BEDTIME [facility] Desmopressin Acetate (Desmopressin Tab (Nf)) 0.2 mg PO BID [facility] Ferrous Sulfate (Ferrous Sulfate Tab*) 325 mg PO DAILY [facility] Haloperidol Lactate (Haldol Inj Iv/Im*) 5 mg IV SLOW PU Q6H PRN Reason: AGITATION Nystatin (Nystatin Cream*) 1 applic TOPICAL Q6H [facility] Pantoprazole Sodium (Protonix Iv*) 40 mg IV DAILY [facility] Vital Signs - 8 hr 05/05/18 05/05/18 05/05/18 03:35 07:19 07:21 Temperature 98.3 F 97.9 F Pulse Rate 89 86 84 Respiratory 16 18 Rate Blood Pressure 153/82 177/86 (mmHg) O2 Sat by Pulse 99 100 Oximetry Oxygen Devices in Use Now: None Appearance: NAD, sitting up in bed Ears/Nose/Mouth/Throat: Mucous Membranes Moist Respiratory: Symmetrical Chest Expansion and Respiratory Effort, Clear to Auscultation Cardiovascular: NL Sounds; No Murmurs; No JVD, RRR Abdominal: NL Sounds; No Tenderness; No Distention Extremities: No Edema Skin: No Rash or Ulcers Neurological: NL Muscle Strength and Tone, - - Alert and Unable to determine orientation as she will only answer yes and no questions Lines/Tubes/Other Access: Clean, Dry and Intact Peripheral IV - site benign Nutrition: Taking PO's Result Diagrams: 05/03/18 06:32 05/05/18 07:06 Microbiology and Other Data: Microbiology 04/26/18 21:40 Urine Culture - Final Urine Diagnostic Imaging: Routine awake and sleep EEG completed 07/01/2018 was normal with sharp vertex waves which is non-specific and could suggest a normal variant. Assess/Plan/Problems-Billing Assessment: Ms. Pedraza is a 62 yo F with PMH significant for schizophrenia and depression presents with AMS/Lethargy and Renal failure. CAT call on 04/28 for lethargy/unresponsiveness with concern for seizures due to elevated prolactin who has no other signs of seizure but remains lethargic. - Patient Problems (1) Change in mental status Code(s): R41.82 - ALTERED MENTAL STATUS, UNSPECIFIED SNOMED Code(s): 139201204 Comment: - Improving - Alert but and responds to yes or no questioning - Suspect encephalopathy 2nd to medication toxicity in the setting of CKD - EEG 04/29 suggestive of encephalopathy, these abnormalities could be seen in the setting of chronic lithium or lithium toxicity or possible seizure activity. 2nd repeat EEG 05/01 normal - Brain CT negative - Continue clonzapine per Psych (2) Hypernatremia Code(s): E87.0 - HYPEROSMOLALITY AND HYPERNATREMIA SNOMED Code(s): 42807819 Comment: - Resolved. Patient has poor oral intake (improving), she is putting out almost 3L daily - Unknown chronicity of polyuria. Possibly compensated to this point - No indication for non-contrast MRI at this time. CKD precludes contrast - Endocrinology consult, appreciate input - Continue Amilioride, DDAVP, monitor urine studies, strict I+Os (3) Diuresis excessive Code(s): R35.8 - OTHER POLYURIA SNOMED Code(s): 01092496 Comment: - See above (4) Secondary hyperparathyroidism Code(s): N25.81 - SECONDARY HYPERPARATHYROIDISM OF RENAL ORIGIN SNOMED Code(s) : 04405308 Comment: - Suspect secondary to Vit D deficiency or renal osteodystrophy - Dr. De La Fuente following - Start Vit D supplement (5) Anemia Code(s): D64.9 - ANEMIA, UNSPECIFIED SNOMED Code(s): 377409317 Comment: - Mild normochromic, normocytic - Suspect secondary to ACD (6) Vitamin D deficiency Code(s): E55.9 - VITAMIN D DEFICIENCY, UNSPECIFIED SNOMED Code(s): 94152810 Comment: - Dr. De La Fuente following - Continue supplement (7) Thrombocytopenia Code(s): D69.6 - THROMBOCYTOPENIA, UNSPECIFIED SNOMED Code(s): 198024162 Comment: - Hx of thrombocytopenia, Stable (8) Schizophrenia Code(s): F20.9 - SCHIZOPHRENIA, UNSPECIFIED SNOMED Code(s): 55370178 Comment: - Per sister at her baseline she is high functioning and psychosis has been stable for at least 12 years. She has had 3 recent emotional traumas within the last few months (father dying, boyfriend becoming sick and requiring NH care and had a change in her long-term social group worker) - [place] following - Consideration of sarah beth leading to hospitalization and current lethargy from previous profound sleep deprivation or negative symptoms of psychosis (9) Anxiety Code(s): F41.9 - ANXIETY DISORDER, UNSPECIFIED SNOMED Code(s): 34738165 Comment: - Continue Buspirone (10) Chronic renal failure, stage 3 (moderate) Code(s): N18.3 - CHRONIC KIDNEY DISEASE, STAGE 3 (MODERATE) SNOMED Code(s): 09457819 Comment: - Per Dr. Beckett creatinine wsa 1.6 in 2015 (she has not been seen since then) - At baseline (11) GERD (gastroesophageal reflux disease) Code(s): K21.9 - GASTRO-ESOPHAGEAL REFLUX DISEASE WITHOUT ESOPHAGITIS SNOMED Code(s): 416111849 Comment: - Continue Pantoprazole (12) DVT prophylaxis Code(s): MPM1957 - SNOMED Code(s): 230637421 Comment: - Continue SCDs (13) Full code status Code(s): Z78.9 - OTHER SPECIFIED HEALTH STATUS SNOMED Code(s): 144961792 Status and Disposition: Inpatient. Discharge psych unit today. Attending: Susana Gamble
[2018-05-05] MEDS: Pantoprazole IV* 40 MG IV SCH (09:31)
[2018-05-05] MEDS: Ferrous Sulfate TAB* 325 MG PO SCH (09:31)
[2018-05-05] MEDS: aMILoride TAB* 5 MG PO SCH (09:31)
[2018-05-05] MEDS: busPIRone TAB* 10 MG PO SCH (09:31)
[2018-05-05] MEDS ORDERED: Cholecalciferol TAB* 1000 UNITS PO SCH (10:00)
[2018-05-05 12:30] VITALS: BP 156/87
--- NOTE | 2018-05-06 09:05 | DS ---
DISCHARGE SUMMARY: DATE OF ADMISSION: 04/27/18 DATE OF DISCHARGE: 05/05/18 ATTENDING PHYSICIAN: Dr. Susana Medel* (dictated by Monika Frias NP) PRIMARY CARE PROVIDER: Shimon Beckett MD PRIMARY DIAGNOSES: 1. 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 2. Hypernatremia. 3. 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 4. Secondary hypoparathyroidism. 5. Anemia, suspect secondary to anemia of chronic disease. 6. Vitamin D deficiency. 7. Thrombocytopenia. SECONDARY DIAGNOSES: 1. Anxiety. 2. Chronic kidney disease, stage 3. 3. Gastroesophageal reflux disease. CONSULTATIONS WHILE IN THE HOSPITAL: 1. Dr. Raheem Camejo MD with Psychiatry. 2. Dr. Mart De La Fuente with Endocrinology. 3. Dr. Patrick Dominguez with Neurology. STUDIES WHILE IN THE HOSPITAL: 1. Renal ultrasound on 04/26/18. Radiologist's impression: Medical renal disease. Renal cyst. Intermediate hypoechoic structure lower pole right kidney , suggests 3-month followup or preferably correlation with any prior image if available. 2. Brain CT on 04/27/18. Radiologist's impression: Cortical atrophy. No acute intracranial findings. 3. Electroencephalogram on 04/28/18. Neurologist's impression: This is an abnormal awake and sleep EEG due to diffuse slowing of the background, intermittent diffuse polymorphic slowing, and rare spike and spike wave complexes seen in the right frontocentral and centroparietal region. These findings are suggestive of [id number] diffuse encephalopathy with superimposed increased epileptogenic discharge potential emanating from the right frontocentral and centroparietal regions. In addition, these abnormalities could be seen in the setting of chronic lithium use or lithium toxicity. Clinical correlation is recommended. If the patient develops any seizure-like activities, I recommend repeating bedside EEG study. 4. Electroencephalogram on 05/01/18. Neurologist's impression: This is a normal awake and sleep EEG. There has been significant improvement since the prior study. There was no clear epileptiform discharges or electrographic seizures. HOSPITAL MEDICATIONS: 1. Acetaminophen 650 mg p.r.n. every 6 hours as needed for fever or pain. 2. Maalox plus 30 mL oral every 4 hours as needed for indigestion. 3. Midamor 5 mg oral daily. 4. BuSpar 10 mg oral daily. 5. Clozapine 250 mg oral daily at bedtime. 6. Desmopressin acetate 0.2 mg oral twice daily. 7. Ferrous sulfate 325 mg oral daily. 8. Haldol 5 mg IV every 6 hours as needed for agitation. 9. Nystatin topical every 6 hours. 10. Protonix 40 mg oral daily. HOME MEDICATIONS: Include: 1. Afrin 0.05% nasal spray 2 sprays to both nares twice daily as needed. 2. Niacin cream apply topical every 6 hours to rash. 3. Nystatin suspension 1 teaspoon oral every 6 hours. 4. Multivitamin 1 tablet oral daily. 5. Loperamide 15 mL oral as needed for loose stools. 6. Demorest 1 tab 150 mg oral daily. 7. Ferrous sulfate 325 mg oral daily. 8. Clozapine 300 mg oral daily at bedtime. 9. Buspirone 10 mg oral daily. 10. Acetaminophen 500 mg oral every 4 hours as needed. HISTORY OF PRESENT ILLNESS/HOSPITAL COURSE: Ms. Pedraza is a 62-year-old female with past medical history significant for schizophrenia, depression, who presented to the hospital with altered mental status and lethargy and was found to have acute renal failure. She was initially admitted to the behavioral services unit. A clinical assessment team was called on 04/28/18 for lethargy and unresponsiveness and concern for seizures due to an elevated Prolactin with no other signs of seizure. She was initially transferred to the ICU for close monitoring and eventually transferred to the medical floor. The patient's mental status was improving. She was suspected to have encephalopathy secondary to medication toxicity in the setting of her chronic kidney disease. She had an EEG suggestive of encephalopathy and a repeat EEG that was normal. She had a negative brain CT. She was found to have hypernatremia that resolved during her stay and was suspected to be secondary to poor oral intake and polyuria. The patient was seen in consultation by Endocrinology, who suspected a nephrotic diabetes insipidus. She was started on DDAVP and amiloride with frequent urine studies. She was also found to have secondary hypoparathyroidism , which was suspected to be secondary to vitamin D deficiency and renal osteodystrophy. She was started on a vitamin D supplementation. The patient was noted to have a mild normochromic, normocytic anemia suspected to be secondary to anemia of chronic disease with thrombocytopenia that was stable. in regards to her schizophrenia, she continued to take lithium per her outpatient Psychiatrist. According to her outpatient Psychiatrist she has refused to decrease her lithium or discontinue it. The patient's creatinine appeared to be normal as per Dr. Beckett as she had not been seen since 2014, at which time her creatinine was 1.6. The patient was slowly improving, her mental status was improving and it was felt that she would best benefit from being transferred to behavioral services unit for further control of her schizophrenia. Ms. Pedraza is stable for discharge to the behavioral services unit today. Vital signs are as follows: Temperature 97.5, heart rate 95, respiratory rate 16, O2 sat 99% on room air, blood pressure 156/87. DISCHARGE PLAN: Ms. Pedraza will be discharged to the behavioral services unit. Activity as tolerated. She can be on a regular consistency diet. In regards to her nephrogenic diabetes insipidus, she should continue to have osmolality studies and monitor her urine output in addition to be continued on desmopressin and amiloride per Dr. De La Fuente. For her anemia, she appears to be near her baseline and she is to be continued on ferrous sulfate. For her vitamin D deficiency and secondary hypoparathyroidism, she should also be continued on vitamin D supplementation. In regards to her schizophrenia, I will deferred any management to Psychiatry. She will be continued on Protonix for her GERD. She should continue to follow with Endocrinology. Additional, the patient should be seen and followup by Dr. Beckett after discharge. On the patient's renal ultrasound, she was noted to have an intermediate hypoechoic structure in the lower pole of her right kidney. She should have followup imaging in 3 months. This is a summarized report of a complex medical history and hospital stay. For further details, please see the entire medical record. TIME SPENT: Time for this discharge was approximately 50 minutes. CONDITION ON DISCHARGE: Improved. Reviewed by JEN CHOWDARY 05/13/18 1331 [id number]/[facility] [place] #: [id number] JULIO
== END 2018-05-28 08:15 | DRG 640 ==
LOC: ED 08:00 → BSU 04-27 14:07 → ICU 04-27 23:37 → MED 04-28 14:56 → UNDODISIN 05-05 15:45
PROVIDERS: ADMIT Psychiatry & Neurology Psychiatry; ATTEND Internal Medicine
DX: E87.0 Hyperosmolality and hypernatremia (principal); G92 Toxic encephalopathy; N17.9 Acute kidney failure, unspecified; E22.1 Hyperprolactinemia; G40.89 Other seizures; N25.81 Secondary hyperparathyroidism of renal origin; T43.595A Adverse effect of other antipsychotics and neuroleptics, initial encounter; Y92.039 Unspecified place in apartment as the place of occurrence of the external cause; F25.0 Schizoaffective disorder, bipolar type; N18.3 Chronic kidney disease, stage 3 (moderate); D50.9 Iron deficiency anemia, unspecified; F41.9 Anxiety disorder, unspecified; K21.9 Gastro-esophageal reflux disease without esophagitis; E86.0 Dehydration; R35.8 Other polyuria; D63.1 Anemia in chronic kidney disease; R41.82 Altered mental status, unspecified; E55.9 Vitamin D deficiency, unspecified; Z87.891 Personal history of nicotine dependence; Z83.49 Family history of other endocrine, nutritional and metabolic diseases; Z83.3 Family history of diabetes mellitus; Z81.8 Family history of other mental and behavioral disorders; Z91.14 Patient's other noncompliance with medication regimen; Z79.1 Long term (current) use of non-steroidal anti-inflammatories (NSAID); Z79.899 Other long term (current) drug therapy
CPT/HCPCS: 36415; 36600; 70450; 70551; 76775; 80048; 80053; 80061; 80178; 80307; 80320; 80329; 81003; 81015; 82024; 82140; 82306; 82533; 82570; 82607; 82652; 82803; 83036; 83605; 83735; 83930; 83935; 83970; 84100; 84146; 84300; 84439; 84443; 84479; 84481; 84540; 84588; 85025; 85027; 85610; 85652; 85730; 86140; 87086; 90853; 93005; 95816; 95819; 99222; 99231; 99238; 99284; 99285; A9270-GY; G0480; J1630; J2310

== ENCOUNTER 2018-05-05 11:36 | Inpatient (IN) | payer MEDICARE, MEDICAID ==
[2018-05-05] MEDS ORDERED: Al Hydrox/Mg Hydrox/Simet LIQ* 30 ML UDC PO PRN (14:18)
[2018-05-05] MEDS ORDERED: Acetaminophen TAB* 325 MG PO PRN (14:18)
--- NOTE | 2018-05-05 19:34 | PN ---
Hospitalist Progress Note Date of Service: 05/05/18 Laboratory Tests 04/28/18 04/28/18 06:00 06:00 Hemoglobin A1c 5.7 H Triglycerides 225 Cholesterol 189 LDL Cholesterol 114 HDL Cholesterol 30.5 AM lab Lipids and HgA1C cancelled as they were already completed on 04/28/18
[2018-05-05] MEDS: DESMOPRESSIN 0.1 MG PO SCH (21:16)
[2018-05-05] MEDS: CloZAPine TAB* 100 MG TAB PO SCH (21:16)
[2018-05-06] MEDS ORDERED: Desmopressin TAB (NF) 0.2 MG TAB PO SCH (09:00)
[2018-05-06] MEDS: Prenatal Vitamin TAB PO SCH (09:49)
[2018-05-06] MEDS: busPIRone TAB* 10 MG PO SCH (09:49)
[2018-05-06] MEDS: aMILoride TAB* 5 MG PO SCH (09:50)
[2018-05-06] MEDS: DESMOPRESSIN 0.1 MG PO SCH ×2 (09:50→22:32)
[2018-05-06] MEDS: Ferrous Sulfate TAB* 325 MG PO SCH (09:50)
[2018-05-06] MEDS: Cholecalciferol TAB* 1000 UNITS PO SCH (09:50)
[2018-05-06 10:45] LABS: EGFR Non-African American 23.4 (>60)
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
[2018-05-06] MEDS: CloZAPine TAB* 100 MG TAB PO SCH (22:32)
[2018-05-07] MEDS: busPIRone TAB* 10 MG PO SCH (10:53)
[2018-05-07] MEDS: DESMOPRESSIN 0.1 MG PO SCH ×2 (10:53→21:41)
[2018-05-07] MEDS: aMILoride TAB* 5 MG PO SCH (10:53)
[2018-05-07] MEDS: Cholecalciferol TAB* 1000 UNITS PO SCH (10:53)
[2018-05-07] MEDS: Ferrous Sulfate TAB* 325 MG PO SCH (10:54)
[2018-05-07] MEDS: Prenatal Vitamin TAB PO SCH (10:54)
--- NOTE | 2018-05-07 13:51 | PN ---
Subjective - Subjective Date of Service: 05/07/18 Service Type: 07975 Hosp care 15 min low complexity Subjective: The patient remains confused and not interactive, disoriented and unable to care for herself. She refused medications last night and this morning. Objective - Appearance Appearance: Well Developed/Nourished Dysmorphic Features: No Hygiene: Normal Grooming: Fairly Well Kept - Behavior Psychomotor Activities: Normal Exhibits Abnormal Movement: No - Attitude and Relatedness Attitude and Relatedness: Psychotically Related Eye Contact: Poor - Speech Quantity: Terse - Mood Patient's Decription of Mood: "Okay" - Affect Observed Affect: Unvariable Affect Consistent with: Euthymia - Thought Process Patient's Thought Process: Disorganized, Impoverished Thought Content: Yes Paranoid Ideation, No Passive Wish, No Suicidal Planning, No Homicidal Ideation - Sensorium Experiencing Hallucinations: No, Sensorium is Clear Type of Hallucinations: Visual: No, Auditory: No, Command: No - Level of Consciousness Level of Consciousness: Alert Orientation: No Intact, No Orientated to Time, No Orientated to Place, No Orientated to Person - Impulse Control Impulse Control: Poor - Insight and Judgement Insight and Judgement: Impaired - Group Participation Particating in Group Activities: No - Medication Management Medication Management Adherence: No Assessment - Assessment Merits Inpatient Hospitalization: For Immediate Safety, For Stabilization Inpatient DSM-V Dx: F20.9 Clinical Impression: 62 y.o. single, never , white female with Hx of severe and persistent schizophrenia, who is a resident at [facility], admitted to BSU on 04/27/18 for thought disorganization and lack of self-care, then transferred to the medical service that same day due to unresponsiveness, who now returns to the unit following medical stabilization for a seizure and kidney failure. She remains confused and nonadherent with medications. Plan - Plan Treatment Plan: Name: CHENCHO WILL Birthdate: 1955 [id number] Restart clozapine 300mg PO qhs. Pursue TOO due to nonadherence. Continued Medication Management: Continue Outpt Medication Medications: Current Medications Acetaminophen (Tylenol Tab*) 650 mg PO Q4H PRN PRN Reason: for pain; or Temp >101 F Al Hydrox/Mg Hydrox/Simethicone (Maalox Plus*) 30 ml PO Q4H PRN PRN Reason: INDIGESTION Amiloride HCl (Midamor Tab*) 5 mg PO DAILY [facility] Last Admin: 05/07/18 10:53 Dose: Not Given Buspirone HCl (Buspar Tab*) 10 mg PO DAILY [facility] Last Admin: 05/07/18 10:53 Dose: Not Given Cholecalciferol (Vitamin D Tab*) 1,000 units PO DAILY [facility] Last Admin: 05/07/18 10:53 Dose: Not Given Clozapine (Clozapine Tab*) 300 mg PO BEDTIME [facility] Last Admin: 05/06/18 22:32 Dose: Not Given Desmopressin Acetate (Desmopressin Tab (Nf)) 0.2 mg PO BID [facility] Last Admin: 05/07/18 10:53 Dose: Not Given Ferrous Sulfate (Ferrous Sulfate Tab*) 325 mg PO DAILY [facility] Last Admin: 05/07/18 10:54 Dose: Not Given Multivitamins ( Vitamin Tab*) 1 tab PO DAILY [facility] Last Admin: 05/07/18 10:54 Dose: Not Given - Discharge Plan Discharge Plan: Inpatient Hospitalization Lab Results - Lab Results Lab Results: 05/06/18 05/06/18 05/07/18 07:19 07:19 06:30 Sodium 147 H Potassium TNP 3.9 Chloride 115 H Carbon Dioxide 19 L Anion Gap 13 H BUN 19 Creatinine 2.13 H Est GFR ( Amer) 28.3 Est GFR (Non-Af Amer) 23.4 BUN/Creatinine Ratio 8.9 Glucose 135 H Hemoglobin A1c Serum Osmolality 319 H Calcium 9.4 Triglycerides 213 Cholesterol 184 LDL Cholesterol 100 HDL Cholesterol 41.6 05/07/18 06:30 Sodium Potassium Chloride Carbon Dioxide Anion Gap BUN Creatinine Est GFR ( Amer) Est GFR (Non-Af Amer) BUN/Creatinine Ratio Glucose Hemoglobin A1c 5.4 Serum Osmolality Calcium Triglycerides Cholesterol LDL Cholesterol HDL Cholesterol
[2018-05-07] MEDS: CloZAPine TAB* 100 MG TAB PO SCH (21:42)
[2018-05-08] MEDS: aMILoride TAB* 5 MG PO SCH ×2 (09:37→12:31)
[2018-05-08] MEDS: busPIRone TAB* 10 MG PO SCH ×2 (09:37→12:31)
[2018-05-08] MEDS: Cholecalciferol TAB* 1000 UNITS PO SCH ×2 (09:38→12:31)
[2018-05-08] MEDS: Prenatal Vitamin TAB PO SCH (09:38)
[2018-05-08] MEDS: DESMOPRESSIN 0.1 MG PO SCH ×3 (09:38→20:12)
[2018-05-08] MEDS: Ferrous Sulfate TAB* 325 MG PO SCH ×2 (09:38→12:31)
--- NOTE | 2018-05-08 11:06 | PN ---
Subjective - Subjective Date of Service: 05/08/18 Service Type: [id number] Hosp care 15 min low complexity Subjective: Chencho continues to be selective in taking her medications. I was happy to see that she took the scheduled clozapine last night, however, she refused all meds this AM. I spoke with Chencho's sister, Mayte Pedraza ([phone]) who requested that nursing staff call her when they are attempting to administer meds, so that Mayte may coax the patient into accepting the pills. This plan, and Mayte's contact information, was forwarded to Chencho's assigned staff. The patient is selectively mute during my visit but does deny being in any pain or having SI/HI. Objective - Appearance Appearance: Well Developed/Nourished Dysmorphic Features: No Hygiene: Normal Grooming: Fairly Well Kept - Behavior Psychomotor Activities: Abnormal-Decreased Exhibits Abnormal Movement: No - Attitude and Relatedness Attitude and Relatedness: Psychotically Related Eye Contact: Poor - Speech Quantity: Terse - Mood Patient's Decription of Mood: "Fine" - Affect Observed Affect: Unvariable Affect Consistent with: Euthymia - Thought Process Patient's Thought Process: Disorganized, Impoverished Thought Content: Yes Paranoid Ideation, No Passive Wish, No Suicidal Planning, No Homicidal Ideation - Sensorium Experiencing Hallucinations: No, Sensorium is Clear Type of Hallucinations: Visual: No, Auditory: No, Command: No - Level of Consciousness Level of Consciousness: Alert Orientation: No Intact, No Orientated to Time, No Orientated to Place, No Orientated to Person - Impulse Control Impulse Control: Poor - Insight and Judgement Insight and Judgement: Impaired - Group Participation Particating in Group Activities: No - Medication Management Medication Management Adherence: Partial Assessment - Assessment Merits Inpatient Hospitalization: For Immediate Safety, For Stabilization Inpatient DSM-V Dx: F20.9 Clinical Impression: 62 y.o. single, never , white female with Hx of severe and persistent schizophrenia, who is a resident at [place], admitted to [facility] on 04/27/18 for thought disorganization and lack of self-care, then transferred to the medical service that same day due to unresponsiveness, who now returns to the unit following medical stabilization for a seizure and kidney failure. She remains confused and nonadherent with medications. Plan - Plan Treatment Plan: Name: CHENCHO PEDRAZA Birthdate: 1955 [id number] We have resumed clozapine by tapering it methodically back to 300mg PO qhs. She is selective with this, as well as her other medications, leading us to pursue T.O.O. due to her non-adherence and continued risk to herself secondary to inability to meet her own needs. We will try to involve her sister in [place] the best we can. The patient warrants further inpatient care. Appreciate Hospitalist and Endocrinology input. Continued Medication Management: Continue Outpt Medication Medications: Current Medications Acetaminophen (Tylenol Tab*) 650 mg PO Q4H PRN PRN Reason: for pain; or Temp >101 F Al Hydrox/Mg Hydrox/Simethicone (Maalox Plus*) 30 ml PO Q4H PRN PRN Reason: INDIGESTION Amiloride HCl (Midamor Tab*) 5 mg PO DAILY [facility] Last Admin: 05/08/18 09:37 Dose: Not Given Buspirone HCl (Buspar Tab*) 10 mg PO DAILY [facility] Last Admin: 05/08/18 09:37 Dose: Not Given Cholecalciferol (Vitamin D Tab*) 1,000 units PO DAILY [facility] Last Admin: 05/08/18 09:38 Dose: Not Given Clozapine (Clozapine Tab*) 300 mg PO BEDTIME [facility] Last Admin: 05/07/18 21:42 Dose: 300 mg Desmopressin Acetate (Desmopressin Tab (Nf)) 0.2 mg PO BID [facility] Last Admin: 05/08/18 09:38 Dose: Not Given Ferrous Sulfate (Ferrous Sulfate Tab*) 325 mg PO DAILY [facility] Last Admin: 05/08/18 09:38 Dose: Not Given Multivitamins ( Vitamin Tab*) 1 tab PO DAILY [facility] Last Admin: 05/08/18 09:38 Dose: Not Given - Discharge Plan Discharge Plan: Inpatient Hospitalization Lab Results - Lab Results Lab Results: 05/06/18 05/06/18 05/07/18 07:19 07:19 06:30 Sodium 147 H Potassium TNP 3.9 Chloride 115 H Carbon Dioxide 19 L Anion Gap 13 H BUN 19 Creatinine 2.13 H Est GFR ( Amer) 28.3 Est GFR (Non-Af Amer) 23.4 BUN/Creatinine Ratio 8.9 Glucose 135 H Hemoglobin A1c Serum Osmolality 319 H Calcium 9.4 Triglycerides 213 Cholesterol 184 LDL Cholesterol 100 HDL Cholesterol 41.6 05/07/18 06:30 Sodium Potassium Chloride Carbon Dioxide Anion Gap BUN Creatinine Est GFR ( Amer) Est GFR (Non-Af Amer) BUN/Creatinine Ratio Glucose Hemoglobin A1c 5.4 Serum Osmolality Calcium Triglycerides Cholesterol LDL Cholesterol HDL Cholesterol
[2018-05-08] MEDS: CloZAPine TAB* 100 MG TAB PO SCH (20:12)
[2018-05-09] MEDS: DESMOPRESSIN 0.1 MG PO SCH ×2 (09:23→21:11)
[2018-05-09] MEDS: Ferrous Sulfate TAB* 325 MG PO SCH (09:24)
[2018-05-09] MEDS: Cholecalciferol TAB* 1000 UNITS PO SCH (09:24)
[2018-05-09] MEDS: busPIRone TAB* 10 MG PO SCH (09:25)
[2018-05-09] MEDS: aMILoride TAB* 5 MG PO SCH (09:25)
[2018-05-09] MEDS: Prenatal Vitamin TAB PO SCH (09:25)
[2018-05-09] MEDS: CloZAPine TAB* 100 MG TAB PO SCH (21:12)
[2018-05-10] MEDS: Ferrous Sulfate TAB* 325 MG PO SCH ×2 (10:08→10:20)
[2018-05-10] MEDS: Cholecalciferol TAB* 1000 UNITS PO SCH ×2 (10:08→10:20)
[2018-05-10] MEDS: Prenatal Vitamin TAB PO SCH ×2 (10:09→10:20)
[2018-05-10] MEDS: busPIRone TAB* 10 MG PO SCH ×2 (10:09→10:20)
[2018-05-10] MEDS: aMILoride TAB* 5 MG PO SCH ×2 (10:09→10:20)
[2018-05-10] MEDS: DESMOPRESSIN 0.1 MG PO SCH ×3 (10:10→20:31)
--- NOTE | 2018-05-10 15:50 | PN ---
Subjective - Subjective Subjective: Chencho refused to identify herself when approached by this machine sign writer, she was suspicious and uncooperative with answering questions. I noticed 3 full cups of fluids next to her (juice and h2o), she walked away unceremoniously affter I inquired if she had been drinking fluids and taking prescribed meds. Objective - Appearance Appearance: Thin Framed Dysmorphic Features: No Hygiene: Normal Grooming: Well Kept - Behavior Psychomotor Activities: Abnormal-Decreased - Attitude and Relatedness Attitude and Relatedness: Psychotically Related Eye Contact: Poor - Speech Quality: Unpressured Latencies: Long Quantity: Terse - Mood Patient's Decription of Mood: no answer - Affect Observed Affect: Unvariable Affect Consistent with: Euthymia - Thought Process Patient's Thought Process: Impoverished Thought Content: Yes Paranoid Ideation, No Passive Wish, No Suicidal Planning, No Homicidal Ideation - Sensorium Experiencing Hallucinations: No, Sensorium is Clear Type of Hallucinations: Visual: No - Level of Consciousness Level of Consciousness: Alert Orientation: Yes Intact - Impulse Control Impulse Control: Intact - Insight and Judgement Insight and Judgement: Impaired - Group Participation Particating in Group Activities: No - Medication Management Medication Management Adherence: No Assessment - Assessment Merits Inpatient Hospitalization: Consolidate Improvements, For Discharge Planning Inpatient DSM-V Dx: F20.9 Clinical Impression: Ongoing impairing psychotic symptoms and medications non-adherence. Please pursue TOO Plan - Plan Treatment Plan: Name: CHENCHO WILL Birthdate: 1955 [id number] Continued Medication Management: Start Medication Medications: Current Medications Acetaminophen (Tylenol Tab*) 650 mg PO Q4H PRN PRN Reason: for pain; or Temp >101 F Al Hydrox/Mg Hydrox/Simethicone (Maalox Plus*) 30 ml PO Q4H PRN PRN Reason: INDIGESTION Amiloride HCl (Midamor Tab*) 5 mg PO DAILY [facility] Last Admin: 05/10/18 10:20 Dose: Not Given Buspirone HCl (Buspar Tab*) 10 mg PO DAILY [facility] Last Admin: 05/10/18 10:20 Dose: Not Given Cholecalciferol (Vitamin D Tab*) 1,000 units PO DAILY [facility] Last Admin: 05/10/18 10:20 Dose: Not Given Clozapine (Clozapine Tab*) 300 mg PO BEDTIME [facility] Last Admin: 05/09/18 21:12 Dose: 300 mg Desmopressin Acetate (Desmopressin Tab (Nf)) 0.2 mg PO BID [facility] Last Admin: 05/10/18 10:20 Dose: Not Given Ferrous Sulfate (Ferrous Sulfate Tab*) 325 mg PO DAILY [facility] Last Admin: 05/10/18 10:20 Dose: Not Given Multivitamins ( Vitamin Tab*) 1 tab PO DAILY [facility] Last Admin: 05/10/18 10:20 Dose: Not Given - Discharge Plan Discharge Plan: Consider Longer Term Tx Outpatient Program: TBD
[2018-05-10] MEDS: CloZAPine TAB* 100 MG TAB PO SCH (20:31)
[2018-05-11] MEDS: aMILoride TAB* 5 MG PO SCH (09:57)
[2018-05-11] MEDS: busPIRone TAB* 10 MG PO SCH (09:57)
[2018-05-11] MEDS: Cholecalciferol TAB* 1000 UNITS PO SCH (09:57)
[2018-05-11] MEDS: DESMOPRESSIN 0.1 MG PO SCH ×2 (09:58→22:00)
[2018-05-11] MEDS: Moisturizing CREAM* 120 GM JAR TOPICAL SCH ×4 (09:58→22:00)
[2018-05-11] MEDS: Prenatal Vitamin TAB PO SCH (09:58)
[2018-05-11] MEDS: Ferrous Sulfate TAB* 325 MG PO SCH (09:58)
--- NOTE | 2018-05-11 12:55 | PN ---
Subjective - Subjective Date of Service: 05/11/18 Service Type: [id number] Hosp care 15 min low complexity Subjective: Chencho is sleeping and difficult to arouse. She remains paranoid, per staff, with extreme deficits in her self-care, seclusive behavior and selective acceptance of prescribed medications. Her older sister from [place], [place] visited over the weekend and was upset at staff that we could not share her protected health information, as she is not on the [facility]. The patient does not appear to be improving. Objective - Appearance Appearance: Well Developed/Nourished Dysmorphic Features: No Hygiene: Mal-odorous Grooming: Disheveled - Behavior Psychomotor Activities: Abnormal-Decreased Exhibits Abnormal Movement: No - Attitude and Relatedness Attitude and Relatedness: Psychotically Related Eye Contact: Poor - Speech Quantity: Terse - Mood Patient's Decription of Mood: "Fine" - Affect Observed Affect: Unvariable Affect Consistent with: Euthymia - Thought Process Patient's Thought Process: Disorganized, Impoverished Thought Content: Yes Paranoid Ideation, No Passive Wish, No Suicidal Planning, No Homicidal Ideation - Sensorium Experiencing Hallucinations: No, Sensorium is Clear Type of Hallucinations: Visual: No, Auditory: No, Command: No - Level of Consciousness Level of Consciousness: Lethargic Orientation: No Intact, No Orientated to Time, No Orientated to Place, No Orientated to Person - Impulse Control Impulse Control: Poor - Insight and Judgement Insight and Judgement: Impaired - Group Participation Particating in Group Activities: No - Medication Management Medication Management Adherence: Partial Assessment - Assessment Merits Inpatient Hospitalization: For Immediate Safety, For Stabilization Inpatient DSM-V Dx: F20.9 Clinical Impression: 62 y.o. single, never , white female with Hx of severe and persistent schizophrenia, who is a resident at [place], admitted to [facility] on 04/27/18 for thought disorganization and lack of self-care, then transferred to the medical service that same day due to unresponsiveness, who now returns to the unit following medical stabilization for a seizure and kidney failure. She remains confused and nonadherent with medications. Plan - Plan Treatment Plan: Name: CHENCHO WILL Birthdate: 1955 [id number] We have resumed clozapine by tapering it methodically back to 300mg PO qhs. She is selective with this, as well as her other medications, leading us to pursue T.O.O. due to her non-adherence and continued risk to herself secondary to inability to meet her own needs. Court hearing for T.O.O. is scheduled for May 13 at 13:30. The patient warrants further inpatient care. Appreciate Hospitalist and Endocrinology input. Continued Medication Management: Continue Outpt Medication Medications: Current Medications Acetaminophen (Tylenol Tab*) 650 mg PO Q4H PRN PRN Reason: for pain; or Temp >101 F Al Hydrox/Mg Hydrox/Simethicone (Maalox Plus*) 30 ml PO Q4H PRN PRN Reason: INDIGESTION Amiloride HCl (Midamor Tab*) 5 mg PO DAILY [facility] Last Admin: 05/11/18 09:57 Dose: Not Given Buspirone HCl (Buspar Tab*) 10 mg PO DAILY [facility] Last Admin: 05/11/18 09:57 Dose: Not Given Cholecalciferol (Vitamin D Tab*) 1,000 units PO DAILY [facility] Last Admin: 05/11/18 09:57 Dose: Not Given Clozapine (Clozapine Tab*) 300 mg PO BEDTIME [facility] Last Admin: 05/10/18 20:31 Dose: 300 mg Desmopressin Acetate (Desmopressin Tab (Nf)) 0.2 mg PO BID [facility] Last Admin: 05/11/18 09:58 Dose: Not Given Ferrous Sulfate (Ferrous Sulfate Tab*) 325 mg PO DAILY [facility] Last Admin: 05/11/18 09:58 Dose: Not Given Multi-Ingredient Ointment (Hydrocerin*) 1 applic TOPICAL TID [facility] Last Admin: 05/11/18 09:58 Dose: Not Given Multivitamins ( Vitamin Tab*) 1 tab PO DAILY [facility] Last Admin: 05/11/18 09:58 Dose: Not Given - Discharge Plan Discharge Plan: Inpatient Hospitalization
[2018-05-11] MEDS: CloZAPine TAB* 100 MG TAB PO SCH (22:00)
[2018-05-12] MEDS: busPIRone TAB* 10 MG PO SCH (09:07)
[2018-05-12] MEDS: Cholecalciferol TAB* 1000 UNITS PO SCH (09:07)
[2018-05-12] MEDS: Ferrous Sulfate TAB* 325 MG PO SCH (09:07)
[2018-05-12] MEDS: DESMOPRESSIN 0.1 MG PO SCH ×2 (09:07→20:57)
[2018-05-12] MEDS: Prenatal Vitamin TAB PO SCH (09:08)
[2018-05-12] MEDS: aMILoride TAB* 5 MG PO SCH (09:08)
[2018-05-12] MEDS: Moisturizing CREAM* 120 GM JAR TOPICAL SCH ×3 (09:14→22:02)
--- NOTE | 2018-05-12 12:09 | PN ---
Subjective - Subjective Date of Service: 05/12/18 Service Type: [id number] Hosp care 15 min low complexity Subjective: Chencho refused her clozapine last night. She is selectively mute and continues to neglect basic ADLs. She is quite malodorous from urine and refused labs this morning that would have helped us evaluate her renal status. She seems unconcerned by the scheduled court proceedings tomorrow. Objective - Appearance Appearance: Well Developed/Nourished Dysmorphic Features: No Hygiene: Mal-odorous Grooming: Disheveled - Behavior Psychomotor Activities: Abnormal-Decreased Exhibits Abnormal Movement: No - Attitude and Relatedness Attitude and Relatedness: Psychotically Related Eye Contact: Poor - Speech Quantity: Terse - Mood Patient's Decription of Mood: "Fine" - Affect Observed Affect: Unvariable Affect Consistent with: Euthymia - Thought Process Patient's Thought Process: Disorganized, Impoverished Thought Content: Yes Paranoid Ideation, No Passive Wish, No Suicidal Planning, No Homicidal Ideation - Sensorium Experiencing Hallucinations: No, Sensorium is Clear Type of Hallucinations: Visual: No, Auditory: No, Command: No - Level of Consciousness Level of Consciousness: Alert Orientation: Yes Intact, Yes Orientated to Time, Yes Orientated to Place, Yes Orientated to Person - Impulse Control Impulse Control: Poor - Insight and Judgement Insight and Judgement: Impaired - Group Participation Particating in Group Activities: No - Medication Management Medication Management Adherence: Partial Assessment - Assessment Merits Inpatient Hospitalization: For Immediate Safety, For Stabilization Inpatient DSM-V Dx: F20.9 Clinical Impression: 62 y.o. single, never , white female with Hx of severe and persistent schizophrenia, who is a resident at [place], admitted to [facility] on 04/27/18 for thought disorganization and lack of self-care, then transferred to the medical service that same day due to unresponsiveness, who now returns to the unit following medical stabilization for a seizure and kidney failure. She remains confused and nonadherent with medications. Plan - Plan Treatment Plan: Name: CHENCHO WILL Birthdate: 1955 [id number] We have resumed clozapine by tapering it methodically back to 300mg PO qhs. She is selective with this, as well as her other medications, leading us to pursue T.O.O. due to her non-adherence and continued risk to herself secondary to inability to meet her own needs. Court hearing for T.O.O. is scheduled for May 13 at 13:30. The patient warrants further inpatient care. Appreciate Hospitalist and Endocrinology input. Continued Medication Management: Continue Outpt Medication Medications: Current Medications Acetaminophen (Tylenol Tab*) 650 mg PO Q4H PRN PRN Reason: for pain; or Temp >101 F Al Hydrox/Mg Hydrox/Simethicone (Maalox Plus*) 30 ml PO Q4H PRN PRN Reason: INDIGESTION Amiloride HCl (Midamor Tab*) 5 mg PO DAILY [facility] Last Admin: 05/12/18 09:08 Dose: 5 mg Buspirone HCl (Buspar Tab*) 10 mg PO DAILY [facility] Last Admin: 05/12/18 09:07 Dose: 10 mg Cholecalciferol (Vitamin D Tab*) 1,000 units PO DAILY [facility] Last Admin: 05/12/18 09:07 Dose: 1,000 units Clozapine (Clozapine Tab*) 300 mg PO BEDTIME [facility] Last Admin: 05/11/18 22:00 Dose: Not Given Desmopressin Acetate (Desmopressin Tab (Nf)) 0.2 mg PO BID [facility] Last Admin: 05/12/18 09:07 Dose: 0.2 mg Ferrous Sulfate (Ferrous Sulfate Tab*) 325 mg PO DAILY [facility] Last Admin: 05/12/18 09:07 Dose: 325 mg Multi-Ingredient Ointment (Hydrocerin*) 1 applic TOPICAL TID [facility] Last Admin: 05/12/18 09:14 Dose: Not Given Multivitamins ( Vitamin Tab*) 1 tab PO DAILY [facility] Last Admin: 05/12/18 09:08 Dose: 1 tab - Discharge Plan Discharge Plan: Inpatient Hospitalization
[2018-05-12] MEDS: CloZAPine TAB* 100 MG TAB PO SCH (20:57)
[2018-05-13 08:15] LABS: EGFR Non-African American 17.5 (>60)
--- NOTE | 2018-05-13 10:36 | PN ---
Subjective - Subjective Date of Service: 05/13/18 Service Type: [id number] Hosp care 15 min low complexity Subjective: Chencho is slightly more responsive today and I note that she took her clozapine last night and allowed a lab draw this morning. We have court scheduled for this afternoon and she is invited to attend but it appears that she doesn't really understand the nature of the proceedings and continues to show confusion and deficits in self-care. Objective - Appearance Appearance: Well Developed/Nourished Dysmorphic Features: No Hygiene: Mal-odorous Grooming: Disheveled - Behavior Psychomotor Activities: Abnormal-Decreased Exhibits Abnormal Movement: No - Attitude and Relatedness Attitude and Relatedness: Psychotically Related Eye Contact: Poor - Speech Quality: Unpressured Quantity: Terse - Mood Patient's Decription of Mood: "Fine" - Affect Observed Affect: Unvariable Affect Consistent with: Euthymia - Thought Process Patient's Thought Process: Disorganized, Impoverished Thought Content: Yes Paranoid Ideation, No Passive Wish, No Suicidal Planning, No Homicidal Ideation - Sensorium Experiencing Hallucinations: No, Sensorium is Clear Type of Hallucinations: Visual: No, Auditory: No, Command: No - Level of Consciousness Level of Consciousness: Alert Orientation: Yes Intact, Yes Orientated to Time, Yes Orientated to Place, Yes Orientated to Person - Impulse Control Impulse Control: Poor - Insight and Judgement Insight and Judgement: Impaired - Group Participation Particating in Group Activities: No - Medication Management Medication Management Adherence: Partial Assessment - Assessment Merits Inpatient Hospitalization: For Immediate Safety, For Stabilization Inpatient DSM-V Dx: F20.9 Clinical Impression: 62 y.o. single, never , white female with Hx of severe and persistent schizophrenia, who is a resident at [place], admitted to [facility] on 04/27/18 for thought disorganization and lack of self-care, then transferred to the medical service that same day due to unresponsiveness, who now returns to the unit following medical stabilization for a seizure and kidney failure. She remains confused and nonadherent with medications. Plan - Plan Treatment Plan: Name: CHENCHO WILL Birthdate: 1955 [id number] We have resumed clozapine by tapering it methodically back to 300mg PO qhs. She is selective with this, as well as her other medications, leading us to pursue T.O.O. due to her non-adherence and continued risk to herself secondary to inability to meet her own needs. Court hearing for T.O.O. is scheduled for today at 13:30. The patient warrants further inpatient care. Her kidneys are still deficient, although her sodium has improved. Appreciate Hospitalist and Endocrinology input. Continued Medication Management: Continue Outpt Medication Medications: Current Medications Acetaminophen (Tylenol Tab*) 650 mg PO Q4H PRN PRN Reason: for pain; or Temp >101 F Al Hydrox/Mg Hydrox/Simethicone (Maalox Plus*) 30 ml PO Q4H PRN PRN Reason: INDIGESTION Amiloride HCl (Midamor Tab*) 5 mg PO DAILY [facility] Last Admin: 05/12/18 09:08 Dose: 5 mg Buspirone HCl (Buspar Tab*) 10 mg PO DAILY [facility] Last Admin: 05/12/18 09:07 Dose: 10 mg Cholecalciferol (Vitamin D Tab*) 1,000 units PO DAILY [facility] Last Admin: 05/12/18 09:07 Dose: 1,000 units Clozapine (Clozapine Tab*) 300 mg PO BEDTIME [facility] Last Admin: 05/12/18 20:57 Dose: 300 mg Desmopressin Acetate (Desmopressin Tab (Nf)) 0.2 mg PO BID [facility] Last Admin: 05/12/18 20:57 Dose: 0.2 mg Ferrous Sulfate (Ferrous Sulfate Tab*) 325 mg PO DAILY [facility] Last Admin: 05/12/18 09:07 Dose: 325 mg Multi-Ingredient Ointment (Hydrocerin*) 1 applic TOPICAL TID [facility] Last Admin: 05/12/18 22:02 Dose: Not Given Multivitamins ( Vitamin Tab*) 1 tab PO DAILY [facility] Last Admin: 05/12/18 09:08 Dose: 1 tab - Discharge Plan Discharge Plan: Inpatient Hospitalization Lab Results - Lab Results Lab Results: 05/13/18 07:40 Sodium 138 Potassium 4.0 Chloride 108 Carbon Dioxide 22 Anion Gap 8 BUN 32 H Creatinine 2.74 H Est GFR ( Amer) 21.2 Est GFR (Non-Af Amer) 17.5 BUN/Creatinine Ratio 11.7 Glucose 140 H Calcium 9.3
[2018-05-13] MEDS: Ferrous Sulfate TAB* 325 MG PO SCH (10:41)
[2018-05-13] MEDS: Cholecalciferol TAB* 1000 UNITS PO SCH (10:41)
[2018-05-13] MEDS: Prenatal Vitamin TAB PO SCH (10:41)
[2018-05-13] MEDS: aMILoride TAB* 5 MG PO SCH (10:42)
[2018-05-13] MEDS: busPIRone TAB* 10 MG PO SCH (10:42)
[2018-05-13] MEDS: Moisturizing CREAM* 120 GM JAR TOPICAL SCH ×3 (10:43→20:11)
[2018-05-13] MEDS: DESMOPRESSIN 0.1 MG PO SCH ×2 (10:43→20:08)
[2018-05-13] MEDS: CloZAPine TAB* 100 MG TAB PO SCH (20:08)
[2018-05-14] MEDS: DESMOPRESSIN 0.1 MG PO SCH ×2 (11:20→20:24)
[2018-05-14] MEDS: aMILoride TAB* 5 MG PO SCH (11:21)
[2018-05-14] MEDS: Cholecalciferol TAB* 1000 UNITS PO SCH (11:21)
[2018-05-14] MEDS: Prenatal Vitamin TAB PO SCH (11:21)
[2018-05-14] MEDS: Ferrous Sulfate TAB* 325 MG PO SCH (11:22)
[2018-05-14] MEDS: busPIRone TAB* 10 MG PO SCH (11:24)
--- NOTE | 2018-05-14 11:49 | PN ---
Subjective - Subjective Date of Service: 05/14/18 Service Type: 66820 Hosp care 15 min low complexity Subjective: Chencho is sleeping in her room. She appears after being awoken, that she is more interactive and better organized. Staff state she has demonstrated some modest improvements in ADLs, as well as adherence with meals and meds. She has no complaints. Objective - Appearance Appearance: Well Developed/Nourished Dysmorphic Features: No Hygiene: Mal-odorous Grooming: Disheveled - Behavior Psychomotor Activities: Abnormal-Decreased Exhibits Abnormal Movement: No - Attitude and Relatedness Attitude and Relatedness: Psychotically Related Eye Contact: Poor - Speech Quantity: Terse - Mood Patient's Decription of Mood: "Okay" - Affect Observed Affect: Unvariable Affect Consistent with: Euthymia - Thought Process Patient's Thought Process: Disorganized, Impoverished Thought Content: Yes Paranoid Ideation, No Passive Wish, No Suicidal Planning, No Homicidal Ideation - Sensorium Experiencing Hallucinations: No, Sensorium is Clear Type of Hallucinations: Visual: No, Auditory: No, Command: No - Level of Consciousness Level of Consciousness: Alert Orientation: No Intact, No Orientated to Time, No Orientated to Place, No Orientated to Person - Impulse Control Impulse Control: Poor - Insight and Judgement Insight and Judgement: Impaired - Group Participation Particating in Group Activities: No - Medication Management Medication Management Adherence: Partial Assessment - Assessment Merits Inpatient Hospitalization: For Immediate Safety, For Stabilization Inpatient DSM-V Dx: F20.9 Clinical Impression: 62 y.o. single, never , white female with Hx of severe and persistent schizophrenia, who is a resident at [place], admitted to [facility] on 04/27/18 for thought disorganization and lack of self-care, then transferred to the medical service that same day due to unresponsiveness, who now returns to the unit following medical stabilization for a seizure and kidney failure. She remains confused and nonadherent with medications. Plan - Plan Treatment Plan: Name: CHENCHO WILL Birthdate: 1955 [id number] We have resumed clozapine by titrating it methodically back to 300mg PO qhs. Adherence is improving. The patient warrants further inpatient care. Her kidneys are still deficient, although her sodium has improved. Appreciate Hospitalist and Endocrinology input. Will update CBC and CMP. Continued Medication Management: Continue Outpt Medication Medications: Current Medications Acetaminophen (Tylenol Tab*) 650 mg PO Q4H PRN PRN Reason: for pain; or Temp >101 F Al Hydrox/Mg Hydrox/Simethicone (Maalox Plus*) 30 ml PO Q4H PRN PRN Reason: INDIGESTION Amiloride HCl (Midamor Tab*) 5 mg PO DAILY [facility] Last Admin: 05/14/18 11:21 Dose: 5 mg Buspirone HCl (Buspar Tab*) 10 mg PO DAILY [facility] Last Admin: 05/14/18 11:24 Dose: 10 mg Cholecalciferol (Vitamin D Tab*) 1,000 units PO DAILY [facility] Last Admin: 05/14/18 11:21 Dose: 1,000 units Clozapine (Clozapine Tab*) 300 mg PO BEDTIME [facility] Last Admin: 05/13/18 20:08 Dose: 300 mg Desmopressin Acetate (Desmopressin Tab (Nf)) 0.2 mg PO BID [facility] Last Admin: 05/14/18 11:20 Dose: 0.2 mg Ferrous Sulfate (Ferrous Sulfate Tab*) 325 mg PO DAILY [facility] Last Admin: 05/14/18 11:22 Dose: 325 mg Multi-Ingredient Ointment (Hydrocerin*) 1 applic TOPICAL TID [facility] Last Admin: 05/13/18 20:11 Dose: Not Given Multivitamins ( Vitamin Tab*) 1 tab PO DAILY [facility] Last Admin: 05/14/18 11:21 Dose: 1 tab - Discharge Plan Discharge Plan: Inpatient Hospitalization
[2018-05-14] MEDS: Moisturizing CREAM* 120 GM JAR TOPICAL SCH ×2 (18:24→20:44)
[2018-05-14] MEDS: CloZAPine TAB* 100 MG TAB PO SCH (20:25)
[2018-05-15] MEDS: Cholecalciferol TAB* 1000 UNITS PO SCH (09:26)
[2018-05-15] MEDS: busPIRone TAB* 10 MG PO SCH (09:27)
[2018-05-15] MEDS: aMILoride TAB* 5 MG PO SCH (09:27)
[2018-05-15] MEDS: DESMOPRESSIN 0.1 MG PO SCH ×2 (09:27→20:52)
[2018-05-15] MEDS: Ferrous Sulfate TAB* 325 MG PO SCH (09:27)
[2018-05-15] MEDS: Prenatal Vitamin TAB PO SCH (09:27)
[2018-05-15] MEDS: Moisturizing CREAM* 120 GM JAR TOPICAL SCH ×3 (09:33→22:00)
--- NOTE | 2018-05-15 12:36 | PN ---
Subjective - Subjective Date of Service: 05/15/18 Service Type: [id number] Hosp care 15 min low complexity Subjective: Chencho is disorganized and hearing voices. Still showing deficits in self- care. Uncertain if she allowed phlebotomy to draw a blood sample this AM. She is resting in bed with very little spontaneous speech or actions. Objective - Appearance Appearance: Well Developed/Nourished Dysmorphic Features: No Hygiene: Mal-odorous Grooming: Disheveled - Behavior Psychomotor Activities: Abnormal-Decreased - Attitude and Relatedness Attitude and Relatedness: Psychotically Related Eye Contact: Poor - Speech Quality: Unpressured Quantity: Terse - Mood Patient's Decription of Mood: "Okay" - Affect Observed Affect: Unvariable Affect Consistent with: Euthymia - Thought Process Patient's Thought Process: Disorganized Thought Content: Yes Paranoid Ideation, No Passive Wish, No Suicidal Planning, No Homicidal Ideation - Sensorium Experiencing Hallucinations: Yes Type of Hallucinations: Visual: No, Auditory: Yes, Command: No - Level of Consciousness Level of Consciousness: Alert Orientation: No Intact, No Orientated to Time, No Orientated to Place, No Orientated to Person - Impulse Control Impulse Control: Poor - Insight and Judgement Insight and Judgement: Impaired - Group Participation Particating in Group Activities: No - Medication Management Medication Management Adherence: Yes Assessment - Assessment Merits Inpatient Hospitalization: For Immediate Safety, For Stabilization Inpatient DSM-V Dx: F20.9 Clinical Impression: 62 y.o. single, never , white female with Hx of severe and persistent schizophrenia, who is a resident at [place], admitted to [facility] on 04/27/18 for thought disorganization and lack of self-care, then transferred to the medical service that same day due to unresponsiveness, who now returns to the unit following medical stabilization for a seizure and kidney failure. She remains confused and nonadherent with medications. Plan - Plan Treatment Plan: Name: CHENCHO WILL Birthdate: 1955 [id number] We have resumed clozapine by titrating it methodically back to 300mg PO qhs. Adherence is improving. The patient warrants further inpatient care. Her kidneys are still deficient, although her sodium has improved. Appreciate Hospitalist and Endocrinology input. Will update CBC and CMP and enter order such that she cannot refuse, per temporary administrative assistant's T.O.O. Continued Medication Management: Continue Outpt Medication Medications: Current Medications Acetaminophen (Tylenol Tab*) 650 mg PO Q4H PRN PRN Reason: for pain; or Temp >101 F Al Hydrox/Mg Hydrox/Simethicone (Maalox Plus*) 30 ml PO Q4H PRN PRN Reason: INDIGESTION Amiloride HCl (Midamor Tab*) 5 mg PO DAILY [facility] Last Admin: 05/15/18 09:27 Dose: 5 mg Buspirone HCl (Buspar Tab*) 10 mg PO DAILY [facility] Last Admin: 05/15/18 09:27 Dose: 10 mg Cholecalciferol (Vitamin D Tab*) 1,000 units PO DAILY [facility] Last Admin: 05/15/18 09:26 Dose: 1,000 units Clozapine (Clozapine Tab*) 300 mg PO BEDTIME [facility] Last Admin: 05/14/18 20:25 Dose: 300 mg Desmopressin Acetate (Desmopressin Tab (Nf)) 0.2 mg PO BID [facility] Last Admin: 05/15/18 09:27 Dose: 0.2 mg Ferrous Sulfate (Ferrous Sulfate Tab*) 325 mg PO DAILY [facility] Last Admin: 05/15/18 09:27 Dose: 325 mg Multi-Ingredient Ointment (Hydrocerin*) 1 applic TOPICAL TID [facility] Last Admin: 05/15/18 09:33 Dose: Not Given Multivitamins ( Vitamin Tab*) 1 tab PO DAILY [facility] Last Admin: 05/15/18 09:27 Dose: 1 tab - Discharge Plan Discharge Plan: Inpatient Hospitalization
[2018-05-15] MEDS: CloZAPine TAB* 100 MG TAB PO SCH (20:53)
[2018-05-16] MEDS: Cholecalciferol TAB* 1000 UNITS PO SCH (09:55)
[2018-05-16] MEDS: Prenatal Vitamin TAB PO SCH (09:55)
[2018-05-16] MEDS: DESMOPRESSIN 0.1 MG PO SCH ×2 (09:55→23:07)
[2018-05-16] MEDS: Ferrous Sulfate TAB* 325 MG PO SCH (09:55)
[2018-05-16] MEDS: busPIRone TAB* 10 MG PO SCH (09:56)
[2018-05-16] MEDS: aMILoride TAB* 5 MG PO SCH (09:56)
[2018-05-16] MEDS: Moisturizing CREAM* 120 GM JAR TOPICAL SCH ×2 (11:02→20:22)
[2018-05-16 12:49] LABS: ABS Basophils 0 10^3/ul (0-0.2); ABS Eosinophils 0.3 10^3/ul (0-0.6); ABS Lymphocytes 2.1 10^3/ul (1.0-4.8); ABS Monocytes 0.7 10^3/ul (0-0.8); ABS Neutrophils 4.6 10^3/ul (1.5-7.7); ABS Nucleated RBC 0 10^3/ul; Eosinophil % 3.8 % (0-6); Hematocrit 37 % (35-47); Hemoglobin 12.2 g/dl (12.0-16.0); Lymphocyte % 26.8 % (25-47); Mean Corpuscular HGB Conc 33 g/dl (31-36); Mean Corpuscular Hemoglobin 30 pg (27-31); Mean Corpuscular Volume 89 fL (80-97); Mean Platelet Volume 10.4 um3 (7.4-10.4); Nucleated Red Blood Cells % 0.2; Platelet Count 127 10^3/ul (150-450); Red Blood Count 4.09 10^6/ul (4.00-5.40); Red Cell Distribution Width 13 % (10.5-15); White Blood Count 7.7 10^3/ul (3.5-10.8)
[2018-05-16 13:04] LABS: EGFR Non-African American 17.3 (>60)
[2018-05-16] MEDS: CloZAPine TAB* 100 MG TAB PO SCH (23:07)
[2018-05-17] MEDS: DESMOPRESSIN 0.1 MG PO SCH ×2 (09:47→23:32)
[2018-05-17] MEDS: Prenatal Vitamin TAB PO SCH (09:47)
[2018-05-17] MEDS: busPIRone TAB* 10 MG PO SCH (09:47)
[2018-05-17] MEDS: Ferrous Sulfate TAB* 325 MG PO SCH (09:47)
[2018-05-17] MEDS: aMILoride TAB* 5 MG PO SCH (09:47)
[2018-05-17] MEDS: Cholecalciferol TAB* 1000 UNITS PO SCH (09:48)
[2018-05-17] MEDS: Moisturizing CREAM* 120 GM JAR TOPICAL SCH ×3 (09:50→23:32)
[2018-05-17] MEDS: CloZAPine TAB* 100 MG TAB PO SCH (23:32)
[2018-05-18] MEDS: Ferrous Sulfate TAB* 325 MG PO SCH (09:42)
[2018-05-18] MEDS: DESMOPRESSIN 0.1 MG PO SCH ×2 (09:42→21:23)
[2018-05-18] MEDS: aMILoride TAB* 5 MG PO SCH (09:43)
[2018-05-18] MEDS: Prenatal Vitamin TAB PO SCH (09:43)
[2018-05-18] MEDS: Cholecalciferol TAB* 1000 UNITS PO SCH (09:43)
[2018-05-18] MEDS: busPIRone TAB* 10 MG PO SCH (09:43)
[2018-05-18] MEDS: Moisturizing CREAM* 120 GM JAR TOPICAL SCH ×3 (09:52→21:27)
[2018-05-18] MEDS ORDERED: Haloperidol INJ IV/IM* 5 MG/ML AMP IM PRN (10:58)
--- NOTE | 2018-05-18 15:47 | PN ---
Subjective - Subjective Date of Service: 05/18/18 Service Type: [id number] Hosp care 15 min low complexity Subjective: Patient remains easily confused and disoriented. She is unaware of the time or where she is. She declined clozapine last night but did allow a scheduled lab draw this AM. She denies SI or HI. Objective - Appearance Appearance: Well Developed/Nourished Dysmorphic Features: No Hygiene: Mal-odorous Grooming: Disheveled - Behavior Psychomotor Activities: Abnormal-Decreased Exhibits Abnormal Movement: No - Attitude and Relatedness Attitude and Relatedness: Psychotically Related Eye Contact: Poor - Speech Quality: Unpressured Quantity: Terse - Mood Patient's Decription of Mood: "Okay" - Affect Observed Affect: Unvariable Affect Consistent with: Euthymia - Thought Process Patient's Thought Process: Disorganized, Impoverished Thought Content: Yes Paranoid Ideation, No Passive Wish, No Suicidal Planning, No Homicidal Ideation - Sensorium Experiencing Hallucinations: No, Sensorium is Clear Type of Hallucinations: Visual: No, Auditory: No, Command: No - Level of Consciousness Level of Consciousness: Alert Orientation: No Intact, No Orientated to Time, No Orientated to Place, No Orientated to Person - Impulse Control Impulse Control: Poor - Insight and Judgement Insight and Judgement: Impaired - Group Participation Particating in Group Activities: No - Medication Management Medication Management Adherence: Partial Assessment - Assessment Merits Inpatient Hospitalization: For Immediate Safety, For Stabilization Inpatient DSM-V Dx: F20.9 Clinical Impression: 62 y.o. single, never , white female with Hx of severe and persistent schizophrenia, who is a resident at [place], admitted to [facility] on 04/27/18 for thought disorganization and lack of self-care, then transferred to the medical service that same day due to unresponsiveness, who now returns to the unit following medical stabilization for a seizure and kidney failure. She remains confused and nonadherent with medications. Plan - Plan Treatment Plan: Name: CHENCHO WILL Birthdate: 1955 [id number] We have resumed clozapine by titrating it methodically back to 300mg PO qhs. Adherence is improving. The patient warrants further inpatient care. Her kidneys are still deficient, although her sodium has improved. Appreciate Hospitalist and Endocrinology input. Continued Medication Management: Continue Outpt Medication Medications: Current Medications Acetaminophen (Tylenol Tab*) 650 mg PO Q4H PRN PRN Reason: for pain; or Temp >101 F Al Hydrox/Mg Hydrox/Simethicone (Maalox Plus*) 30 ml PO Q4H PRN PRN Reason: INDIGESTION Amiloride HCl (Midamor Tab*) 5 mg PO DAILY [facility] Last Admin: 05/18/18 09:43 Dose: 5 mg Buspirone HCl (Buspar Tab*) 10 mg PO DAILY [facility] Last Admin: 05/18/18 09:43 Dose: 10 mg Cholecalciferol (Vitamin D Tab*) 1,000 units PO DAILY [facility] Last Admin: 05/18/18 09:43 Dose: 1,000 units Clozapine (Clozapine Tab*) 300 mg PO BEDTIME [facility] Desmopressin Acetate (Desmopressin Tab (Nf)) 0.2 mg PO BID [facility] Last Admin: 05/18/18 09:42 Dose: 0.2 mg Ferrous Sulfate (Ferrous Sulfate Tab*) 325 mg PO DAILY [facility] Last Admin: 05/18/18 09:42 Dose: 325 mg Haloperidol Lactate (Haldol Inj Iv/Im*) 5 mg IM BEDTIME PRN PRN Reason: AGITATION Multi-Ingredient Ointment (Hydrocerin*) 1 applic TOPICAL TID [facility] Last Admin: 05/18/18 14:51 Dose: Not Given Multivitamins ( Vitamin Tab*) 1 tab PO DAILY [facility] Last Admin: 05/18/18 09:43 Dose: 1 tab - Discharge Plan Discharge Plan: Inpatient Hospitalization Lab Results - Lab Results Lab Results: 05/16/18 05/16/18 12:32 12:32 WBC 7.7 RBC 4.09 Hgb 12.2 Hct 37 MCV 89 MCH 30 MCHC 33 RDW 13 Plt Count 127 L MPV 10.4 Neut % (Auto) 59.5 Lymph % (Auto) 26.8 [place] % (Auto) 9.4 H Eos % (Auto) 3.8 Baso % (Auto) 0.5 Absolute Neuts (auto) 4.6 Absolute Lymphs (auto) 2.1 Absolute Monos (auto) 0.7 Absolute Eos (auto) 0.3 Absolute Basos (auto) 0 Absolute Nucleated RBC 0 Nucleated RBC % 0.2 Sodium 140 Potassium 5.4 H Chloride 111 Carbon Dioxide 21 L Anion Gap 8 BUN 27 H Creatinine 2.77 H Est GFR ( Amer) 20.9 Est GFR (Non-Af Amer) 17.3 BUN/Creatinine Ratio 9.7 Glucose 124 H Calcium 9.6 Total Bilirubin 0.50 AST 12 L ALT 13 Alkaline Phosphatase 93 Total Protein 6.7 Albumin 4.0 Globulin 2.7 Albumin/Globulin Ratio 1.5
[2018-05-18] MEDS: CloZAPine TAB* 100 MG TAB PO SCH (21:22)
[2018-05-19] MEDS: Moisturizing CREAM* 120 GM JAR TOPICAL SCH ×3 (09:22→22:16)
[2018-05-19] MEDS: Ferrous Sulfate TAB* 325 MG PO SCH (09:41)
[2018-05-19] MEDS: busPIRone TAB* 10 MG PO SCH (09:41)
[2018-05-19] MEDS: aMILoride TAB* 5 MG PO SCH (09:41)
[2018-05-19] MEDS: Cholecalciferol TAB* 1000 UNITS PO SCH (09:41)
[2018-05-19] MEDS: DESMOPRESSIN 0.1 MG PO SCH ×2 (09:41→22:14)
[2018-05-19] MEDS: Prenatal Vitamin TAB PO SCH (09:42)
[2018-05-19] MEDS: CloZAPine TAB* 100 MG TAB PO SCH (22:13)
[2018-05-20] MEDS: Moisturizing CREAM* 120 GM JAR TOPICAL SCH ×3 (09:31→21:50)
[2018-05-20] MEDS: busPIRone TAB* 10 MG PO SCH (10:04)
[2018-05-20] MEDS: aMILoride TAB* 5 MG PO SCH (10:04)
[2018-05-20] MEDS: Prenatal Vitamin TAB PO SCH (10:05)
[2018-05-20] MEDS: Cholecalciferol TAB* 1000 UNITS PO SCH (10:05)
[2018-05-20] MEDS: DESMOPRESSIN 0.1 MG PO SCH ×2 (10:05→21:47)
[2018-05-20] MEDS: Ferrous Sulfate TAB* 325 MG PO SCH (10:10)
--- NOTE | 2018-05-20 12:06 | PN ---
Subjective - Subjective Date of Service: 05/20/18 Service Type: [id number] Hosp care 15 min low complexity Subjective: Chencho remains disorganized and confused. She is taking meds and allowing lab draws, in accordance with her TOO orders, however, she does not seem to be improving. She signed the acceptance form for going to a [facility] and I let her sister, Mayte, know that this is now the plan. Sister expresses a preference for [facility] . Objective - Appearance Appearance: Well Developed/Nourished Dysmorphic Features: No Hygiene: Mal-odorous Grooming: Disheveled - Behavior Psychomotor Activities: Abnormal-Decreased Exhibits Abnormal Movement: No - Attitude and Relatedness Attitude and Relatedness: Psychotically Related Eye Contact: Poor - Speech Quantity: Terse - Mood Patient's Decription of Mood: "Okay" - Affect Observed Affect: Unvariable Affect Consistent with: Euthymia - Thought Process Patient's Thought Process: Disorganized, Impoverished Thought Content: Yes Paranoid Ideation, No Passive Wish, No Suicidal Planning, No Homicidal Ideation - Sensorium Experiencing Hallucinations: No, Sensorium is Clear Type of Hallucinations: Visual: No, Auditory: No, Command: No - Level of Consciousness Level of Consciousness: Alert Orientation: No Intact, No Orientated to Time, No Orientated to Place, No Orientated to Person - Impulse Control Impulse Control: Poor - Insight and Judgement Insight and Judgement: Impaired - Group Participation Particating in Group Activities: No - Medication Management Medication Management Adherence: Yes Assessment - Assessment Merits Inpatient Hospitalization: For Immediate Safety, For Stabilization Inpatient DSM-V Dx: F20.9 Clinical Impression: 62 y.o. single, never , white female with Hx of severe and persistent schizophrenia, who is a resident at [place], admitted to [facility] on 04/27/18 for thought disorganization and lack of self-care, then transferred to the medical service that same day due to unresponsiveness, who now returns to the unit following medical stabilization for a seizure and kidney failure. She remains confused and nonadherent with medications. Plan - Plan Treatment Plan: Name: CHENCHO WILL Birthdate: 1955 [id number] We have resumed clozapine by titrating it methodically back to 300mg PO qhs. Will increase this to 350mg tonight. Adherence is improving. The patient warrants further inpatient care. Her kidneys are still deficient, although her sodium has improved. Appreciate Hospitalist and Endocrinology input. [facility]. Continued Medication Management: Continue Outpt Medication Medications: Current Medications Acetaminophen (Tylenol Tab*) 650 mg PO Q4H PRN PRN Reason: for pain; or Temp >101 F Al Hydrox/Mg Hydrox/Simethicone (Maalox Plus*) 30 ml PO Q4H PRN PRN Reason: INDIGESTION Amiloride HCl (Midamor Tab*) 5 mg PO DAILY [facility] Last Admin: 05/20/18 10:04 Dose: 5 mg Buspirone HCl (Buspar Tab*) 10 mg PO DAILY [facility] Last Admin: 05/20/18 10:04 Dose: 10 mg Cholecalciferol (Vitamin D Tab*) 1,000 units PO DAILY [facility] Last Admin: 05/20/18 10:05 Dose: 1,000 units Clozapine (Clozapine Tab*) 350 mg PO BEDTIME [facility] Desmopressin Acetate (Desmopressin Tab (Nf)) 0.2 mg PO BID [facility] Last Admin: 05/20/18 10:05 Dose: 0.2 mg Ferrous Sulfate (Ferrous Sulfate Tab*) 325 mg PO DAILY [facility] Last Admin: 05/20/18 10:10 Dose: 325 mg Haloperidol Lactate (Haldol Inj Iv/Im*) 5 mg IM BEDTIME PRN PRN Reason: AGITATION Multi-Ingredient Ointment (Hydrocerin*) 1 applic TOPICAL TID [facility] Last Admin: 05/20/18 09:31 Dose: Not Given Multivitamins ( Vitamin Tab*) 1 tab PO DAILY [facility] Last Admin: 05/20/18 10:05 Dose: 1 tab - Discharge Plan Discharge Plan: Consider Longer Term Tx
[2018-05-20] MEDS: CloZAPine TAB* 100 MG TAB PO SCH (21:44)
[2018-05-21] MEDS: DESMOPRESSIN 0.1 MG PO SCH ×2 (11:01→20:44)
[2018-05-21] MEDS: Cholecalciferol TAB* 1000 UNITS PO SCH (11:02)
[2018-05-21] MEDS: busPIRone TAB* 10 MG PO SCH (11:02)
[2018-05-21] MEDS: Ferrous Sulfate TAB* 325 MG PO SCH (11:02)
[2018-05-21] MEDS: Moisturizing CREAM* 120 GM JAR TOPICAL SCH ×3 (11:03→20:47)
[2018-05-21] MEDS: Prenatal Vitamin TAB PO SCH (11:03)
[2018-05-21] MEDS: aMILoride TAB* 5 MG PO SCH (11:03)
[2018-05-21] MEDS: CloZAPine TAB* 100 MG TAB PO SCH (20:44)
[2018-05-22] MEDS: Prenatal Vitamin TAB PO SCH (09:53)
[2018-05-22] MEDS: DESMOPRESSIN 0.1 MG PO SCH ×2 (09:53→20:24)
[2018-05-22] MEDS: Moisturizing CREAM* 120 GM JAR TOPICAL SCH ×3 (09:54→20:31)
[2018-05-22] MEDS: aMILoride TAB* 5 MG PO SCH (09:54)
[2018-05-22] MEDS: busPIRone TAB* 10 MG PO SCH (09:54)
[2018-05-22] MEDS: Cholecalciferol TAB* 1000 UNITS PO SCH (09:54)
[2018-05-22] MEDS: Ferrous Sulfate TAB* 325 MG PO SCH (09:54)
--- NOTE | 2018-05-22 11:33 | PN ---
Subjective - Subjective Date of Service: 05/22/18 Service Type: [id number] Hosp care 15 min low complexity Subjective: Chencho is up out of bed. Allowed staff to shower and groom her yesterday, despite her initial protests that they meant to kill her. Today she seems pleasant but impoverished, sitting and staring forward in the milieu and not speaking to anyone. She still requires staff prompting for meals, toileting, meds and routine self-care. She denies SI or HI. Objective - Appearance Appearance: Well Developed/Nourished Dysmorphic Features: No Hygiene: Normal Grooming: Fairly Well Kept - Behavior Psychomotor Activities: Abnormal-Decreased Exhibits Abnormal Movement: No - Attitude and Relatedness Attitude and Relatedness: Psychotically Related Eye Contact: Poor - Speech Quantity: Terse - Mood Patient's Decription of Mood: "Okay" - Affect Observed Affect: Unvariable Affect Consistent with: Euthymia - Thought Process Patient's Thought Process: Impoverished Thought Content: Yes Paranoid Ideation, No Passive Wish, No Suicidal Planning, No Homicidal Ideation - Sensorium Experiencing Hallucinations: No, Sensorium is Clear Type of Hallucinations: Visual: No, Auditory: No, Command: No - Level of Consciousness Level of Consciousness: Alert Orientation: No Intact, No Orientated to Time, No Orientated to Place, No Orientated to Person - Impulse Control Impulse Control: Poor - Insight and Judgement Insight and Judgement: Impaired - Group Participation Particating in Group Activities: No - Medication Management Medication Management Adherence: Yes Assessment - Assessment Merits Inpatient Hospitalization: For Immediate Safety, For Stabilization Inpatient DSM-V Dx: F20.9 Clinical Impression: 62 y.o. single, never , white female with Hx of severe and persistent schizophrenia, who is a resident at [place], admitted to [facility] on 04/27/18 for thought disorganization and lack of self-care, then transferred to the medical service that same day due to unresponsiveness, who now returns to the unit following medical stabilization for a seizure and kidney failure. She remains confused and nonadherent with medications. Plan - Plan Treatment Plan: Name: CHENCHO WILL Birthdate: 1955 [id number] We have resumed clozapine by titrating it methodically to 350mg PO qhs. Adherence is improving. The patient warrants further inpatient care. Her kidneys are still deficient, although her sodium has improved. Appreciate Hospitalist and Endocrinology input. Awaiting acceptance by the [facility] system. Continued Medication Management: Continue Outpt Medication Medications: Current Medications Acetaminophen (Tylenol Tab*) 650 mg PO Q4H PRN PRN Reason: for pain; or Temp >101 F Al Hydrox/Mg Hydrox/Simethicone (Maalox Plus*) 30 ml PO Q4H PRN PRN Reason: INDIGESTION Amiloride HCl (Midamor Tab*) 5 mg PO DAILY [facility] Last Admin: 05/22/18 09:54 Dose: 5 mg Buspirone HCl (Buspar Tab*) 10 mg PO DAILY [facility] Last Admin: 05/22/18 09:54 Dose: 10 mg Cholecalciferol (Vitamin D Tab*) 1,000 units PO DAILY [facility] Last Admin: 05/22/18 09:54 Dose: 1,000 units Clozapine (Clozapine Tab*) 350 mg PO BEDTIME [facility] Last Admin: 05/21/18 20:44 Dose: 350 mg Desmopressin Acetate (Desmopressin Tab (Nf)) 0.2 mg PO BID [facility] Last Admin: 05/22/18 09:53 Dose: 0.2 mg Ferrous Sulfate (Ferrous Sulfate Tab*) 325 mg PO DAILY [facility] Last Admin: 05/22/18 09:54 Dose: 325 mg Haloperidol Lactate (Haldol Inj Iv/Im*) 5 mg IM BEDTIME PRN PRN Reason: AGITATION Multi-Ingredient Ointment (Hydrocerin*) 1 applic TOPICAL TID [facility] Last Admin: 05/22/18 09:54 Dose: Not Given Multivitamins ( Vitamin Tab*) 1 tab PO DAILY [facility] Last Admin: 05/22/18 09:53 Dose: 1 tab - Discharge Plan Discharge Plan: Consider Longer Term Tx
[2018-05-22] MEDS: CloZAPine TAB* 100 MG TAB PO SCH (20:24)
[2018-05-23] MEDS: DESMOPRESSIN 0.1 MG PO SCH ×2 (09:03→21:22)
[2018-05-23] MEDS: Ferrous Sulfate TAB* 325 MG PO SCH (09:04)
[2018-05-23] MEDS: Cholecalciferol TAB* 1000 UNITS PO SCH (09:04)
[2018-05-23] MEDS: Prenatal Vitamin TAB PO SCH (09:04)
[2018-05-23] MEDS: aMILoride TAB* 5 MG PO SCH (09:04)
[2018-05-23] MEDS: busPIRone TAB* 10 MG PO SCH (09:04)
[2018-05-23] MEDS: Moisturizing CREAM* 120 GM JAR TOPICAL SCH ×3 (09:06→21:23)
[2018-05-23] MEDS: CloZAPine TAB* 100 MG TAB PO SCH (21:22)
[2018-05-24] MEDS: busPIRone TAB* 10 MG PO SCH (08:53)
[2018-05-24] MEDS: DESMOPRESSIN 0.1 MG PO SCH ×2 (08:53→20:44)
[2018-05-24] MEDS: Cholecalciferol TAB* 1000 UNITS PO SCH (08:53)
[2018-05-24] MEDS: Prenatal Vitamin TAB PO SCH (08:53)
[2018-05-24] MEDS: Ferrous Sulfate TAB* 325 MG PO SCH (08:53)
[2018-05-24] MEDS: aMILoride TAB* 5 MG PO SCH (08:53)
[2018-05-24] MEDS: Moisturizing CREAM* 120 GM JAR TOPICAL SCH ×3 (08:54→20:45)
[2018-05-24] MEDS: CloZAPine TAB* 100 MG TAB PO SCH (20:42)
[2018-05-25] MEDS: busPIRone TAB* 10 MG PO SCH (10:15)
[2018-05-25] MEDS: DESMOPRESSIN 0.1 MG PO SCH ×2 (10:15→19:50)
[2018-05-25] MEDS: Cholecalciferol TAB* 1000 UNITS PO SCH (10:16)
[2018-05-25] MEDS: aMILoride TAB* 5 MG PO SCH (10:16)
[2018-05-25] MEDS: Ferrous Sulfate TAB* 325 MG PO SCH (10:16)
[2018-05-25] MEDS: Prenatal Vitamin TAB PO SCH (10:17)
[2018-05-25] MEDS: Moisturizing CREAM* 120 GM JAR TOPICAL SCH ×3 (10:17→22:04)
--- NOTE | 2018-05-25 18:36 | PN ---
Subjective - Subjective Date of Service: 05/25/18 Service Type: [id number] Hosp care 15 min low complexity Subjective: No change in Chencho's mental status. She wonders around aimlessly and asking same question repeatedly. Need frequent redirections but not a management problem. Pleasant and smiling, eating and taking meds with prompts. Objective - Appearance Appearance: Healthy Appearing Dysmorphic Features: No Hygiene: Mal-odorous Grooming: Disheveled - Behavior Psychomotor Activities: Normal Exhibits Abnormal Movement: No - Attitude and Relatedness Attitude and Relatedness: Child Like Eye Contact: Fair - Speech Quality: Unpressured Latencies: Normal Quantity: Terse - Mood Patient's Decription of Mood: "Fine" - Affect Observed Affect: Fair - Thought Process Patient's Thought Process: Coherent, Circumstantial, Impoverished Thought Content: No Passive Wish, No Suicidal Planning, No Homicidal Ideation, No Paranoid Ideation - Sensorium Experiencing Hallucinations: No, Sensorium is Clear Type of Hallucinations: Visual: No, Auditory: No, Command: No - Level of Consciousness Level of Consciousness: Alert Orientation: Yes Orientated to Person, No Orientated to Time, No Orientated to Place - Impulse Control Impulse Control: Tenuous - Insight and Judgement Insight and Judgement: Impaired - Group Participation Particating in Group Activities: No - Medication Management Medication Management Adherence: Yes Assessment - Assessment Merits Inpatient Hospitalization: For Immediate Safety, For Stabilization, Pending Safe DC Plan Inpatient DSM-V Dx: F20.9 Clinical Impression: Confused and disoriented but not a management problem on the unit. Plan - Plan Treatment Plan: Name: CHENCHO WILL Birthdate: 1955 [id number] Continued Medication Management: Continue Outpt Medication Medications: Current Medications Acetaminophen (Tylenol Tab*) 650 mg PO Q4H PRN PRN Reason: for pain; or Temp >101 F Al Hydrox/Mg Hydrox/Simethicone (Maalox Plus*) 30 ml PO Q4H PRN PRN Reason: INDIGESTION Amiloride HCl (Midamor Tab*) 5 mg PO DAILY [facility] Last Admin: 05/25/18 10:16 Dose: 5 mg Buspirone HCl (Buspar Tab*) 10 mg PO DAILY [facility] Last Admin: 05/25/18 10:15 Dose: 10 mg Cholecalciferol (Vitamin D Tab*) 1,000 units PO DAILY [facility] Last Admin: 05/25/18 10:16 Dose: 1,000 units Clozapine (Clozapine Tab*) 350 mg PO BEDTIME [facility] Last Admin: 05/24/18 20:42 Dose: 350 mg Desmopressin Acetate (Desmopressin Tab (Nf)) 0.2 mg PO BID [facility] Last Admin: 05/25/18 10:15 Dose: 0.2 mg Ferrous Sulfate (Ferrous Sulfate Tab*) 325 mg PO DAILY [facility] Last Admin: 05/25/18 10:16 Dose: 325 mg Haloperidol Lactate (Haldol Inj Iv/Im*) 5 mg IM BEDTIME PRN PRN Reason: AGITATION Multi-Ingredient Ointment (Hydrocerin*) 1 applic TOPICAL TID [facility] Last Admin: 05/25/18 12:58 Dose: Not Given Multivitamins ( Vitamin Tab*) 1 tab PO DAILY [facility] Last Admin: 05/25/18 10:17 Dose: 1 tab - Discharge Plan Discharge Plan: Consider Longer Term Tx - [facility]
[2018-05-25] MEDS: CloZAPine TAB* 100 MG TAB PO SCH (19:50)
[2018-05-26] MEDS: Prenatal Vitamin TAB PO SCH (09:35)
[2018-05-26] MEDS: Cholecalciferol TAB* 1000 UNITS PO SCH (09:35)
[2018-05-26] MEDS: DESMOPRESSIN 0.1 MG PO SCH ×2 (09:35→20:54)
[2018-05-26] MEDS: Ferrous Sulfate TAB* 325 MG PO SCH (09:35)
[2018-05-26] MEDS: aMILoride TAB* 5 MG PO SCH (09:35)
[2018-05-26] MEDS: busPIRone TAB* 10 MG PO SCH (09:35)
[2018-05-26] MEDS: Moisturizing CREAM* 120 GM JAR TOPICAL SCH ×3 (09:37→20:55)
[2018-05-26] MEDS: CloZAPine TAB* 100 MG TAB PO SCH (20:53)
[2018-05-27] MEDS: Prenatal Vitamin TAB PO SCH (10:21)
[2018-05-27] MEDS: DESMOPRESSIN 0.1 MG PO SCH ×2 (10:21→20:11)
[2018-05-27] MEDS: aMILoride TAB* 5 MG PO SCH (10:22)
[2018-05-27] MEDS: Ferrous Sulfate TAB* 325 MG PO SCH (10:22)
[2018-05-27] MEDS: busPIRone TAB* 10 MG PO SCH (10:22)
[2018-05-27] MEDS: Cholecalciferol TAB* 1000 UNITS PO SCH (10:22)
[2018-05-27] MEDS: Moisturizing CREAM* 120 GM JAR TOPICAL SCH ×3 (10:26→20:28)
--- NOTE | 2018-05-27 12:12 | PN ---
[facility]: Group Therapy Note - Service Type Service Type: [id number] Group Psychotherapy - Cognitive Behavioral Group Therapy ( CBT):Patient attended CBT programming this morning and presented with flat affect that did not vary with discussion. Although responsive to direct prompts to respond to questions, patient did not engage in spontaneous conversation.
--- NOTE | 2018-05-27 14:38 | PN ---
Subjective - Subjective Date of Service: 05/27/18 Service Type: [id number] Hosp care 15 min low complexity Subjective: Chencho remains confused but cooperative, eating and drinking well. She is aware that she will be transported tomorrow to [place] but seems unfazed by this. She denies SI or HI. Objective - Appearance Appearance: Well Developed/Nourished Dysmorphic Features: No Hygiene: Mal-odorous Grooming: Disheveled - Behavior Psychomotor Activities: Abnormal-Decreased Exhibits Abnormal Movement: No - Attitude and Relatedness Attitude and Relatedness: Cooperative Eye Contact: Fair - Speech Quality: Unpressured Latencies: Long Quantity: Terse - Mood Patient's Decription of Mood: "Okay" - Affect Observed Affect: Unvariable Affect Consistent with: Euthymia - Thought Process Patient's Thought Process: Disorganized Thought Content: Yes Paranoid Ideation, No Passive Wish, No Suicidal Planning, No Homicidal Ideation - Sensorium Experiencing Hallucinations: No, Sensorium is Clear Type of Hallucinations: Visual: No, Auditory: No, Command: No - Level of Consciousness Level of Consciousness: Alert Orientation: Yes Intact, Yes Orientated to Time, Yes Orientated to Place, Yes Orientated to Person - Impulse Control Impulse Control: Poor - Insight and Judgement Insight and Judgement: Impaired - Group Participation Particating in Group Activities: No - Medication Management Medication Management Adherence: Yes Assessment - Assessment Merits Inpatient Hospitalization: For Immediate Safety, For Stabilization Inpatient DSM-V Dx: F20.9 Clinical Impression: 62 y.o. single, never , white female with Hx of severe and persistent schizophrenia, who is a resident at [place], admitted to [facility] on 04/27/18 for thought disorganization and lack of self-care, then transferred to the medical service that same day due to unresponsiveness, who now returns to the unit following medical stabilization for a seizure and kidney failure. She remains confused and nonadherent with medications. Plan - Plan Treatment Plan: Name: CHENCHO WILL Birthdate: 1955 [id number] We have resumed clozapine by titrating it methodically to 400mg PO qhs. Adherence is improving. The patient warrants further inpatient care. Her kidneys are still deficient, although her sodium has improved. Appreciate Hospitalist and Endocrinology input. Awaiting acceptance by the [facility]. Continued Medication Management: Continue Outpt Medication Medications: Current Medications Acetaminophen (Tylenol Tab*) 650 mg PO Q4H PRN PRN Reason: for pain; or Temp >101 F Al Hydrox/Mg Hydrox/Simethicone (Maalox Plus*) 30 ml PO Q4H PRN PRN Reason: INDIGESTION Amiloride HCl (Midamor Tab*) 5 mg PO DAILY [facility] Last Admin: 05/27/18 10:22 Dose: 5 mg Buspirone HCl (Buspar Tab*) 10 mg PO DAILY [facility] Last Admin: 05/27/18 10:22 Dose: 10 mg Cholecalciferol (Vitamin D Tab*) 1,000 units PO DAILY [facility] Last Admin: 05/27/18 10:22 Dose: 1,000 units Clozapine (Clozapine Tab*) 400 mg PO BEDTIME [facility] Last Admin: 05/26/18 20:53 Dose: 400 mg Desmopressin Acetate (Desmopressin Tab (Nf)) 0.2 mg PO BID [facility] Last Admin: 05/27/18 10:21 Dose: 0.2 mg Ferrous Sulfate (Ferrous Sulfate Tab*) 325 mg PO DAILY [facility] Last Admin: 05/27/18 10:22 Dose: 325 mg Haloperidol Lactate (Haldol Inj Iv/Im*) 5 mg IM BEDTIME PRN PRN Reason: AGITATION Multi-Ingredient Ointment (Hydrocerin*) 1 applic TOPICAL TID [facility] Last Admin: 05/27/18 14:15 Dose: Not Given Multivitamins ( Vitamin Tab*) 1 tab PO DAILY [facility] Last Admin: 05/27/18 10:21 Dose: 1 tab - Discharge Plan Discharge Plan: Consider Longer Term Tx
--- NOTE | 2018-05-27 15:59 | PN ---
MHU: Group Therapy Note - Service Type Service Type: [id number] Group Psychotherapy - Medication Education Group: Patient attended group and presented with flat affect that did not vary with discussion. She was grossly disorganized and off-topic.
[2018-05-27] MEDS: CloZAPine TAB* 100 MG TAB PO SCH (20:27)
[2018-05-28] MEDS: aMILoride TAB* 5 MG PO SCH ×2 (07:12→07:13)
[2018-05-28] MEDS: Prenatal Vitamin TAB PO SCH (07:12)
[2018-05-28] MEDS: Ferrous Sulfate TAB* 325 MG PO SCH (07:13)
[2018-05-28] MEDS: DESMOPRESSIN 0.1 MG PO SCH (07:14)
[2018-05-28] MEDS: Cholecalciferol TAB* 1000 UNITS PO SCH (07:14)
[2018-05-28] MEDS: busPIRone TAB* 10 MG PO SCH (07:14)
[2018-05-28 07:56] VITALS: BP 129/61
--- NOTE | 2018-05-28 16:34 | DS ---
DATE OF ADMISSION: 05/05/2018. DATE OF DISCHARGE: 05/28/2018. DISCHARGE DIAGNOSES: AXIS I: Schizophrenia. AXIS II: Deferred. CONDITION AT THE TIME OF DISCHARGE: Unfortunately, Skylar remains confused and disorganized, needing frequent prompting to complete ADL's. She remains paranoid, mistrustful and incapable of meeting her own needs safely in the community. For this reason, she is being transferred to the on license of [facility] psychiatric facility in [place]. There they will continue intensive inpatient services until such a time that she can be released back to the community. MENTAL STATUS EXAM AT THE TIME OF DISCHARGE: The patient is an aging white female with walls hair who is dressed in a walls sweater and blue pants, who is wandering around the halls of the [facility]. She makes minimal eye contact and it is extremely difficult to establish a rapport with her. Her speech is mostly selectively mute; however, at times she makes non-sequitur statements. Mood would appear to be somewhat anxious with a somewhat blunted affect. Thought process reveals distorted disorganized thinking. Thought content reveals delusions of persecution. She denies suicidal or homicidal ideations. Insight and judgment are impaired. Cognitively, she is awake and alert, but somewhat disoriented to her situation. LABORATORY DATA: Comprehensive metabolic testing was performed on the 07 of May revealing a hemoglobin A1c of 5.4, triglycerides of 213, cholesterol 184 , LDL cholesterol 100, HDL cholesterol 41.6. DISCHARGE INSTRUCTIONS TO THE PATIENT: A. Medications: She takes Clozapine 400 mg p.o. at bedtime, Desmopressin 0.2 mg p.o. b.i.d. She takes BuSpar 10 mg daily, Amiloride, also known as Midamor 5 mg p.o. daily. She also takes Ferrous Sulfate 325 mg p.o. daily and a multivitamin one tablet p.o. daily. B. Diet: Regular. C. Activities: As per [facility] protocol. The patient is a nonsmoker. There are no laboratory or diagnostic studies pending at the time of discharge. D. Follow-up care: The patient is a transfer to . They will be responsible for all of her follow-up appointments at her time of discharge from that facility. E. Substance abuse follow-up: Nonapplicable. HOSPITAL COURSE - PART A: Reason for admission: The patient is a 62-year-old single, never white female with a long-standing history of schizoaffective disorder who is transferred back to the [facility] from the [facility] where she had been hospitalized since the evening of following an episode of unresponsiveness. During her care on the [facility], she was worked up for overt signs of encephalopathy, including abnormal EEG findings, as well as hypernatremia with consultation not only by Psychiatry but also Neurology and Endocrinology. The initial reason for her admission to the [facility] Unit on the 27 of April was that she had been nonadherent with medications for approximately ten days and had become confused and unable to care for herself in the community. On examination , she was making incoherent statements about [employer] [place] and asking questions about a set of triplets who she believed were sent to a concentration camp. She was not oriented to time, place, situation, or person. In fact, she could not even tell me her last name. For further information, I relied on her sister , Mayte Pedraza, who resides in [place]. According to Mayte, the patient stopped taking her medications sometime in late March. Prior to this, she had been doing "fantastic" for the previous 12 years. She had been independent, able to live with minimal support through the [facility] in one of their apartments; however, recently she had three significant stressors. Her father apparently in January of this year followed by news that her boyfriend, who was also a [facility] resident, would be leaving that agency and moving into a nursing facility. 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 The patient, soon after discontinuation her medications, became nonsensical, not eating, not sleeping, not taking medications. For this reason, she was admitted to the [facility] back on the 27 of April; however, after only a brief time on our unit, she was discovered to be unresponsive, prompting the unit to call a CAT team response. From there, she was transferred to the Medical Service where an EEG was read as abnormal and suggestive of a seizure or perhaps delirium. She was also discovered to have severe hypernatremia and renal dysfunction which were thought to be secondary to long-term administration of Polonia. HOSPITAL COURSE - PART B: Psychiatric treatment rendered: The patient was admitted to the Behavioral Science Unit and placed on q.15 minute checks for her own safety. We were able to resume Clozapine therapy, albeit at a much lower dose and this was gradually titrated back to the 300 mg at bedtime that she takes on an outpatient basis. Unfortunately, this did not make her well and the Clozapine was further titrated to 400 mg at bedtime. Due to her renal dysfunction, we held her Polonia and with continued discontinuation of Polonia, her electrolytes improved and she no longer met criteria for diabetes insipidus. Unfortunately, her creatinine remained elevated which was a sign of a more chronic renal condition. It is uncertain at this time whether that will improve the longer that she is off Polonia. At any rate, we had several conversations with her sister, Mayte Pedraza, who did manage to visit at least once from [place]. Unfortunately, Skylar did not make much progress and would often skip both meals and routine hygiene, as well as medications. For this reason, she was taken to court where the hospital won an order for treatment over her objection. Thereafter, if she refused medications , she was offered IM Haldol prompting her to accept p.o. Clozapine. We were able to groom her more frequently thereafter and she did show improvements in terms of orientation; however, she remained confused and not safe enough for discharge. This prompted us to pursue state hospitalization. She was referred to who did accept her for transfer. She left this morning in fairly guarded condition due to psychiatric decompensation. We wish Skylar the best for a successful long-term inpatient treatment. We hope that she will soon be able to return to her apartment in the community and receive services on an outpatient basis thereafter. [id number] #: [id number] JULIO
== END 2018-05-28 08:15 | DRG 885 ==
LOC: BSU 14:18 → UNDOADMIN 14:21 → BSU 05-15 08:33
PROVIDERS: ADMIT Psychiatry & Neurology Psychiatry; ATTEND Psychiatry & Neurology Psychiatry
PROC: GZHZZZZ Group Psychotherapy (ICD-10-PCS; principal; 2018-05-27)
DX: F20.9 Schizophrenia, unspecified (principal); E23.2 Diabetes insipidus; F25.9 Schizoaffective disorder, unspecified; Z91.14 Patient's other noncompliance with medication regimen; Z91.5 Personal history of self-harm; Z62.819 Personal history of unspecified abuse in childhood; Z87.891 Personal history of nicotine dependence; E20.9 Hypoparathyroidism, unspecified; D63.8 Anemia in other chronic diseases classified elsewhere; E55.9 Vitamin D deficiency, unspecified; D69.6 Thrombocytopenia, unspecified; Z81.8 Family history of other mental and behavioral disorders
CPT/HCPCS: 36415; 80048; 80053; 80061; 83036; 83930; 85025; 90853; 99222; 99231; 99238; A9270-GY

== ENCOUNTER 2020-04-28 23:51 | Inpatient (IN) ==
[2020-04-29 00:50] LABS: ABS Eosinophils 0.1 10^3/ul (0-0.6); ABS Lymphocytes 1.8 10^3/ul (1.0-4.8); ABS Monocytes 0.7 10^3/ul (0-0.8); ABS Neutrophils 4.8 10^3/ul (1.5-7.7); Eosinophil % 1.3 %; Hematocrit 32 % (35-47); Hemoglobin 11.4 g/dL (12.0-16.0); Lymphocyte % 23.9 %; Mean Corpuscular HGB Conc 36 g/dL (31-36); Mean Corpuscular Hemoglobin 32 pg (27-31); Mean Corpuscular Volume 90 fL (80-97); Platelet Count 84 10^3/uL (150-450); Red Blood Count 3.52 10^6 /uL (3.70-4.87); Red Cell Distribution Width 13 % (10-15); White Blood Count 7.4 10^3/uL (3.5-10.8)
[2020-04-29 00:58] LABS: ALT 8 U/L (7-52); AST 14 U/L (13-39); Albumin/Globulin Ratio 1.7 (1-3); Alkaline Phosphatase 67 U/L (34-104); BUN/Creatinine Ratio 9.9 (8-20); Blood Urea Nitrogen 29 mg/dL (6-24); CO2 Carbon Dioxide 19 mmol/L (22-32); Calcium 9.1 mg/dL (8.6-10.3); EGFR African American 19.6 (>60); EGFR Non-African American 16.2 (>60); Globulin 2.3 g/dL (2-4); Glucose 94 mg/dL (70-100); Potassium 3.1 mmol/L (3.5-5.0); Sodium 142 mmol/L (135-145); Total Protein 6.3 g/dL (6.4-8.9)
[2020-04-29 01:00] LABS: Acetaminophen < 15 mcg/mL; Alcohol, S < 10 mg/dL (<10); Salicylate < 2.50 mg/dL (<30)
[2020-04-29 01:03] LABS: Anion Gap 11 mmol/L (2-11); Chloride 112 mmol/L (101-111)
[2020-04-29 01:16] LABS: TSH Ultra Thyroid Stim Horm 2.17 mcIU/mL (0.34-5.60)
[2020-04-29] MEDS ORDERED: Potassium Chlor 20 meq TAB.ER PO ONE (02:29)
[2020-04-29] MEDS ORDERED: Al Hydrox/Mg Hydrox/Simet LIQ 30 ML UDC PO PRN (03:45)
[2020-04-29] MEDS ORDERED: Polyethylene Glycol 3350 17 GM PACKET PO PRN (04:05)
[2020-04-29] MEDS ORDERED: Sodium Bicarb 650 mg (ANTACID) TAB PO PRN (04:07)
[2020-04-29] MEDS ORDERED: Senna TAB 8.6 mg TAB PO PRN (04:10)
[2020-04-29 08:31] LABS: Calcium 9.5 mg/dL (8.6-10.3); EGFR African American 19.7 (>60); EGFR Non-African American 16.3 (>60); HDL Cholesterol 47.4 mg/dL; Potassium 3.8 mmol/L (3.5-5.0)
[2020-04-29] MEDS: Cholecalciferol (VIT D3) 1,000 unit TAB PO SCH (09:10)
[2020-04-29] MEDS: Fluticasone NASAL SPRAY 50MCG 16 gm SPRAY BTL INTRANASAL SCH (11:38)
[2020-04-30] MEDS: Cholecalciferol (VIT D3) 1,000 unit TAB PO SCH (10:02)
[2020-04-30] MEDS: Fluticasone NASAL SPRAY 50MCG 16 gm SPRAY BTL INTRANASAL SCH (10:03)
[2020-05-01] MEDS: Fluticasone NASAL SPRAY 50MCG 16 gm SPRAY BTL INTRANASAL SCH (09:37)
[2020-05-01] MEDS: Cholecalciferol (VIT D3) 1,000 unit TAB PO SCH (09:37)
[2020-05-02] MEDS: Fluticasone NASAL SPRAY 50MCG 16 gm SPRAY BTL INTRANASAL SCH (10:48)
[2020-05-02] MEDS: Cholecalciferol (VIT D3) 1,000 unit TAB PO SCH (10:48)
[2020-05-03] MEDS: Cholecalciferol (VIT D3) 1,000 unit TAB PO SCH (15:23)
[2020-05-03] MEDS: Fluticasone NASAL SPRAY 50MCG 16 gm SPRAY BTL INTRANASAL SCH (15:23)
[2020-05-04] MEDS: Fluticasone NASAL SPRAY 50MCG 16 gm SPRAY BTL INTRANASAL SCH (09:45)
[2020-05-04] MEDS: Cholecalciferol (VIT D3) 1,000 unit TAB PO SCH (09:45)
[2020-05-05] MEDS: Cholecalciferol (VIT D3) 1,000 unit TAB PO SCH (09:49)
[2020-05-05] MEDS: Fluticasone NASAL SPRAY 50MCG 16 gm SPRAY BTL INTRANASAL SCH (09:50)
[2020-05-06] MEDS: Cholecalciferol (VIT D3) 1,000 unit TAB PO SCH (11:10)
[2020-05-06] MEDS: Fluticasone NASAL SPRAY 50MCG 16 gm SPRAY BTL INTRANASAL SCH (11:11)
[2020-05-07] MEDS: Cholecalciferol (VIT D3) 1,000 unit TAB PO SCH (09:56)
[2020-05-07] MEDS: Fluticasone NASAL SPRAY 50MCG 16 gm SPRAY BTL INTRANASAL SCH (09:57)
[2020-05-08] MEDS: Cholecalciferol (VIT D3) 1,000 unit TAB PO SCH (11:12)
[2020-05-08] MEDS: Fluticasone NASAL SPRAY 50MCG 16 gm SPRAY BTL INTRANASAL SCH (11:13)
[2020-05-09 00:42] LABS: Clozapine 49 ng/mL (350-600); Clozapine & Norclozapine Level 79 ng/mL; Norclozapine 30 ng/mL
[2020-05-09] MEDS: Cholecalciferol (VIT D3) 1,000 unit TAB PO SCH (09:58)
[2020-05-09] MEDS: Fluticasone NASAL SPRAY 50MCG 16 gm SPRAY BTL INTRANASAL SCH (09:58)
[2020-05-10] MEDS: Fluticasone NASAL SPRAY 50MCG 16 gm SPRAY BTL INTRANASAL SCH (12:48)
[2020-05-10] MEDS: Cholecalciferol (VIT D3) 1,000 unit TAB PO SCH (12:48)
[2020-05-11] MEDS: Cholecalciferol (VIT D3) 1,000 unit TAB PO SCH (09:39)
[2020-05-11] MEDS: Fluticasone NASAL SPRAY 50MCG 16 gm SPRAY BTL INTRANASAL SCH (09:40)
[2020-05-11] MEDS: FluPHENAZine IM 2.5 MG/ML 1 ml IM PRN (11:46)
[2020-05-12] MEDS: Cholecalciferol (VIT D3) 1,000 unit TAB PO SCH (10:57)
[2020-05-12] MEDS: Fluticasone NASAL SPRAY 50MCG 16 gm SPRAY BTL INTRANASAL SCH (10:57)
[2020-05-12] MEDS: FluPHENAZine IM 2.5 MG/ML 1 ml IM PRN (12:56)
[2020-05-13] MEDS: Cholecalciferol (VIT D3) 1,000 unit TAB PO SCH (09:43)
[2020-05-13] MEDS: Fluticasone NASAL SPRAY 50MCG 16 gm SPRAY BTL INTRANASAL SCH (09:56)
[2020-05-13 11:23] LABS: ABS Eosinophils 0.1 10^3/ul (0-0.6); ABS Lymphocytes 1.6 10^3/ul (1.0-4.8); ABS Monocytes 1.2 10^3/ul (0-0.8); ABS Neutrophils 10.8 10^3/ul (1.5-7.7); Eosinophil % 0.8 %; Hematocrit 43 % (35-47); Hemoglobin 14.3 g/dL (12.0-16.0); Lymphocyte % 11.8 %; Mean Corpuscular HGB Conc 34 g/dL (31-36); Mean Corpuscular Hemoglobin 31 pg (27-31); Mean Corpuscular Volume 92 fL (80-97); Mean Platelet Volume 10.3 fL (7.4-10.4); Nucleated Red Blood Cells % 0.1; Platelet Count 153 10^3/uL (150-450); Red Blood Count 4.65 10^6 /uL (3.70-4.87); Red Cell Distribution Width 13 % (10-15); White Blood Count 13.7 10^3/uL (3.5-10.8)
[2020-05-13 11:42] LABS: ALT 10 U/L (7-52); AST 15 U/L (13-39); Albumin 4.7 g/dL (3.2-5.2); Albumin/Globulin Ratio 1.5 (1-3); Alkaline Phosphatase 76 U/L (34-104); BUN/Creatinine Ratio 19.9 (8-20); Blood Urea Nitrogen 68 mg/dL (6-24); CO2 Carbon Dioxide 23 mmol/L (22-32); Calcium 10.6 mg/dL (8.6-10.3); Creatine Kinase 149 U/L (10-223); EGFR African American 16.3 (>60); EGFR Non-African American 13.5 (>60); Globulin 3.2 g/dL (2-4); Glucose 150 mg/dL (70-100); Potassium 4.8 mmol/L (3.5-5.0); Total Protein 7.9 g/dL (6.4-8.9)
[2020-05-13 11:44] LABS: Anion Gap 12 mmol/L (2-11); Chloride 114 mmol/L (101-111); Sodium 149 mmol/L (135-145)
[2020-05-13] MEDS ORDERED: NS 0.9% 1000 ml BAG 1,000 ML IV SCH (11:45)
[2020-05-13 12:18] LABS: C Reactive Protein < 1.00 mg/L (<8.01)
[2020-05-13] MEDS ORDERED: LORazepam 2 mg VIAL 1 ml ONE (13:24)
[2020-05-14] MEDS ORDERED: Lorazepam PYXIS KEY ONE (09:52)
[2020-05-14] MEDS ORDERED: LORazepam 2 mg VIAL 1 ml ONE (09:53)
[2020-05-14 09:57] LABS: ABS Eosinophils 0.2 10^3/ul (0-0.6); ABS Lymphocytes 2.2 10^3/ul (1.0-4.8); ABS Monocytes 1.1 10^3/ul (0-0.8); ABS Neutrophils 9.6 10^3/ul (1.5-7.7); Eosinophil % 1.7 %; Hematocrit 39 % (35-47); Hemoglobin 13.3 g/dL (12.0-16.0); Lymphocyte % 16.6 %; Mean Corpuscular HGB Conc 34 g/dL (31-36); Mean Corpuscular Hemoglobin 31 pg (27-31); Mean Corpuscular Volume 91 fL (80-97); Mean Platelet Volume 10.2 fL (7.4-10.4); Nucleated Red Blood Cells % 0.1; Platelet Count 141 10^3/uL (150-450); Red Blood Count 4.26 10^6 /uL (3.70-4.87); Red Cell Distribution Width 13 % (10-15); White Blood Count 13.2 10^3/uL (3.5-10.8)
[2020-05-14] MEDS ORDERED: Lorazepam PYXIS KEY PRN ×2 (10:04→21:44)
[2020-05-14] MEDS ORDERED: LORazepam 2 mg VIAL 1 ml IM ONE (10:05)
[2020-05-14 10:21] LABS: Albumin 4.3 g/dL (3.2-5.2); Albumin/Globulin Ratio 1.5 (1-3); Calcium 10.2 mg/dL (8.6-10.3); EGFR Non-African American 14.9 (>60); Globulin 2.9 g/dL (2-4); Potassium 4.5 mmol/L (3.5-5.0); Total Bilirubin 0.5 mg/dL (0.2-1.0); Total Protein 7.2 g/dL (6.4-8.9)
[2020-05-14] MEDS: Cholecalciferol (VIT D3) 1,000 unit TAB PO SCH (10:27)
[2020-05-14] MEDS: Fluticasone NASAL SPRAY 50MCG 16 gm SPRAY BTL INTRANASAL SCH (10:27)
[2020-05-14] MEDS ORDERED: D5W 500 ml BAG 500 ML IV SCH ×3 (14:00→22:00)
[2020-05-14] MEDS: Heparin 5000 UNITS/ML 1 mL VIAL SUBCUT SCH (21:11)
[2020-05-14 21:40] LABS: BUN/Creatinine Ratio 21.2 (8-20); Calcium 10.1 mg/dL (8.6-10.3); EGFR African American 18.1 (>60); Potassium 4.3 mmol/L (3.5-5.0)
[2020-05-14] MEDS ORDERED: LORazepam 2 mg VIAL 1 ml IV PUSH ONE (21:44)
[2020-05-15 00:42] LABS: BUN/Creatinine Ratio 21.2 (8-20); Calcium 9.8 mg/dL (8.6-10.3); EGFR African American 18.5 (>60); EGFR Non-African American 15.3 (>60); Potassium 4.1 mmol/L (3.5-5.0)
[2020-05-15 06:27] LABS: ABS Basophils 0.1 10^3/ul (0-0.2); ABS Eosinophils 0.2 10^3/ul (0-0.6); ABS Lymphocytes 2.4 10^3/ul (1.0-4.8); ABS Monocytes 1.1 10^3/ul (0-0.8); ABS Neutrophils 7.4 10^3/ul (1.5-7.7); Hematocrit 38 % (35-47); Hemoglobin 12.7 g/dL (12.0-16.0); Lymphocyte % 21.2 %; Mean Corpuscular HGB Conc 34 g/dL (31-36); Mean Corpuscular Hemoglobin 31 pg (27-31); Mean Corpuscular Volume 92 fL (80-97); Mean Platelet Volume 10.6 fL (7.4-10.4); Platelet Count 127 10^3/uL (150-450); Red Blood Count 4.12 10^6 /uL (3.70-4.87); Red Cell Distribution Width 13 % (10-15); White Blood Count 11.2 10^3/uL (3.5-10.8)
[2020-05-15 06:45] LABS: BUN/Creatinine Ratio 21.5 (8-20); Calcium 9.8 mg/dL (8.6-10.3); EGFR African American 19.1 (>60); EGFR Non-African American 15.8 (>60); Magnesium 2.4 mg/dL (1.9-2.7)
[2020-05-15] MEDS ORDERED: NS 0.9% 1000 ml BAG 1,000 ML IV SCH (08:30)
[2020-05-15] MEDS: Lactated Ringers 1000 ml BAG 1,000 ML IV SCH ×2 (09:34→18:04)
[2020-05-15] MEDS: Cholecalciferol (VIT D3) 1,000 unit TAB PO SCH (10:37)
[2020-05-15] MEDS: Fluticasone NASAL SPRAY 50MCG 16 gm SPRAY BTL INTRANASAL SCH (10:38)
[2020-05-15] MEDS: Heparin 5000 UNITS/ML 1 mL VIAL SUBCUT SCH ×2 (10:54→20:59)
[2020-05-15] MEDS: LORazepam 2 mg VIAL 1 ml IV PUSH SCH ×2 (11:15→20:59)
[2020-05-15] MEDS ORDERED: Lactated Ringers 1000 ml BAG 1,000 ML IV SCH (20:11)
[2020-05-15] MEDS: Ammonium Lactate 12% 1 APPLIC TUBE TOPICAL SCH (20:59)
[2020-05-15] MEDS ORDERED: LORazepam 2 mg VIAL 1 ml IV PUSH SCH (21:00)
[2020-05-15 21:12] LABS: BUN/Creatinine Ratio 21.2 (8-20); Calcium 9.6 mg/dL (8.6-10.3); EGFR African American 20.7 (>60); EGFR Non-African American 17.1 (>60); Potassium 4.2 mmol/L (3.5-5.0)
[2020-05-15] MEDS ORDERED: D5W 500 ml BAG 500 ML IV SCH (22:00)
[2020-05-16 04:07] LABS: Calcium 9.6 mg/dL (8.6-10.3)
[2020-05-16 04:10] LABS: Potassium 4.1 mmol/L (3.5-5.0)
[2020-05-16 04:13] LABS: BUN/Creatinine Ratio 20.7 (8-20); EGFR Non-African American 17.3 (>60)
[2020-05-16] MEDS: Cholecalciferol (VIT D3) 1,000 unit TAB PO SCH (09:27)
[2020-05-16] MEDS: Fluticasone NASAL SPRAY 50MCG 16 gm SPRAY BTL INTRANASAL SCH (09:28)
[2020-05-16] MEDS: LORazepam 2 mg VIAL 1 ml IV PUSH SCH ×2 (10:46→22:08)
[2020-05-16] MEDS: Heparin 5000 UNITS/ML 1 mL VIAL SUBCUT SCH ×2 (10:48→22:11)
[2020-05-16] MEDS: Ammonium Lactate 12% 1 APPLIC TUBE TOPICAL SCH ×2 (10:51→22:11)
[2020-05-16 11:34] LABS: ABS Eosinophils 0.1 10^3/ul (0-0.6); ABS Lymphocytes 1.3 10^3/ul (1.0-4.8); ABS Monocytes 0.9 10^3/ul (0-0.8); ABS Neutrophils 6.3 10^3/ul (1.5-7.7); Eosinophil % 1.7 %; Hematocrit 39 % (35-47); Hemoglobin 13.1 g/dL (12.0-16.0); Lymphocyte % 14.5 %; Mean Corpuscular HGB Conc 34 g/dL (31-36); Mean Corpuscular Hemoglobin 31 pg (27-31); Mean Corpuscular Volume 92 fL (80-97); Mean Platelet Volume 10.2 fL (7.4-10.4); Platelet Count 113 10^3/uL (150-450); Red Blood Count 4.19 10^6 /uL (3.70-4.87); Red Cell Distribution Width 13 % (10-15); White Blood Count 8.6 10^3/uL (3.5-10.8)
[2020-05-16] MEDS ORDERED: D5W 1000 ml BAG 1,000 ML IV SCH (12:00)
[2020-05-16 12:23] LABS: EGFR Non-African American 17.3 (>60)
[2020-05-16] MEDS ORDERED: Benztropine 2 mg AMP 1 MG/ML 2 ml AMP IV SCH (13:00)
[2020-05-16] MEDS: D5W 1000 ml BAG 1,000 ML IV SCH (14:14)
[2020-05-16] MEDS ORDERED: Gadoteridol (CONTRAST) 279.3 MG/ML 10 ML IV ONE (16:53)
[2020-05-16] MEDS: Benztropine 2 mg AMP 1 MG/ML 2 ml AMP IV SCH (18:04)
[2020-05-16 19:02] LABS: BUN/Creatinine Ratio 18.3 (8-20); Blood Urea Nitrogen 49 mg/dL (6-24); CO2 Carbon Dioxide 24 mmol/L (22-32); Calcium 10.1 mg/dL (8.6-10.3); Creatine Kinase 44 U/L (10-223); EGFR African American 21.6 (>60); EGFR Non-African American 17.8 (>60); Glucose 128 mg/dL (70-100)
[2020-05-16 19:09] LABS: Chloride 124 mmol/L (101-111); Sodium 155 mmol/L (135-145)
[2020-05-16 19:11] LABS: Anion Gap 7 mmol/L (2-11)
[2020-05-17] MEDS: D5W 1000 ml BAG 1,000 ML IV SCH ×2 (00:51→11:09)
[2020-05-17 07:38] LABS: ABS Eosinophils 0.2 10^3/ul (0-0.6); ABS Lymphocytes 1.6 10^3/ul (1.0-4.8); ABS Monocytes 0.9 10^3/ul (0-0.8); Eosinophil % 2.7 %; Hematocrit 37 % (35-47); Hemoglobin 12.8 g/dL (12.0-16.0); Mean Corpuscular HGB Conc 35 g/dL (31-36); Mean Corpuscular Hemoglobin 32 pg (27-31); Mean Corpuscular Volume 92 fL (80-97); Mean Platelet Volume 10.3 fL (7.4-10.4); Platelet Count 97 10^3/uL (150-450); Red Blood Count 4.04 10^6 /uL (3.70-4.87); Red Cell Distribution Width 13 % (10-15); White Blood Count 8.7 10^3/uL (3.5-10.8)
[2020-05-17 07:52] LABS: BUN/Creatinine Ratio 17.1 (8-20); Calcium 9.7 mg/dL (8.6-10.3); EGFR African American 23.8 (>60); EGFR Non-African American 19.7 (>60); Potassium 3.8 mmol/L (3.5-5.0)
[2020-05-17] MEDS: Cholecalciferol (VIT D3) 1,000 unit TAB PO SCH (09:36)
[2020-05-17] MEDS: LORazepam 2 mg VIAL 1 ml IV PUSH SCH ×2 (10:06→20:24)
[2020-05-17] MEDS: Ammonium Lactate 12% 1 APPLIC TUBE TOPICAL SCH ×2 (10:06→20:25)
[2020-05-17] MEDS: Fluticasone NASAL SPRAY 50MCG 16 gm SPRAY BTL INTRANASAL SCH (10:06)
[2020-05-17] MEDS: Benztropine 2 mg AMP 1 MG/ML 2 ml AMP IV SCH ×2 (10:07→19:30)
[2020-05-17] MEDS: Heparin 5000 UNITS/ML 1 mL VIAL SUBCUT SCH ×2 (10:07→20:25)
[2020-05-17 11:55] LABS: Urine Appearance Clear; Urine Bilirubin Negative (Negative); Urine Blood 2+ (Negative); Urine Color Yellow; Urine Glucose Negative (Negative); Urine Ketones Negative (Negative); Urine Nitrite Negative (Negative); Urine Protein Negative (Negative); Urine Specific Gravity 1.006 (1.010-1.030); Urine Urobilinogen Negative (Negative)
[2020-05-17 11:58] LABS: Urine Bacteria Absent (Absent); Urine Red Blood Cell 1+(3-5/hpf) (Absent); Urine White Blood Cell Trace(0-5/hpf) (Absent)
[2020-05-17 13:36] LABS: Calcium 9.7 mg/dL (8.6-10.3); EGFR African American 24.1 (>60); EGFR Non-African American 19.9 (>60); Potassium 3.9 mmol/L (3.5-5.0)
[2020-05-17] MEDS ORDERED: TPN 24 HR with D10W 1000 ml BAG 1,000 ML, Amino Acid Infusion 10% 850 ML, Sterile Water... IV SCH (17:00)
[2020-05-17 20:04] LABS: Calcium 9.4 mg/dL (8.6-10.3); Potassium 3.9 mmol/L (3.5-5.0)
[2020-05-17 20:10] LABS: BUN/Creatinine Ratio 16.8 (8-20); EGFR African American 24.1 (>60); EGFR Non-African American 19.9 (>60)
[2020-05-18 00:53] LABS: BUN/Creatinine Ratio 16.5 (8-20); Calcium 9.2 mg/dL (8.6-10.3); EGFR African American 24.9 (>60); EGFR Non-African American 20.6 (>60); Potassium 3.6 mmol/L (3.5-5.0)
[2020-05-18] MEDS: D5W 1000 ml BAG 1,000 ML IV SCH (04:20)
[2020-05-18 06:31] LABS: Albumin 3.5 g/dL (3.2-5.2); Albumin/Globulin Ratio 1.4 (1-3); BUN/Creatinine Ratio 14.5 (8-20); Calcium 9.4 mg/dL (8.6-10.3); EGFR African American 25.2 (>60); EGFR Non-African American 20.9 (>60); Globulin 2.5 g/dL (2-4); Potassium 3.5 mmol/L (3.5-5.0); Total Bilirubin 0.6 mg/dL (0.2-1.0)
[2020-05-18 06:32] LABS: BUN/Creatinine Ratio 14.7 (8-20); Calcium 9.2 mg/dL (8.6-10.3); EGFR African American 24.8 (>60); EGFR Non-African American 20.5 (>60); Potassium 3.6 mmol/L (3.5-5.0)
[2020-05-18 06:39] LABS: ABS Eosinophils 0.2 10^3/ul (0-0.6); ABS Monocytes 0.7 10^3/ul (0-0.8); ABS Neutrophils 4.9 10^3/ul (1.5-7.7); Hematocrit 34 % (35-47); Hemoglobin 12.1 g/dL (12.0-16.0); Lymphocyte % 25.9 %; Mean Corpuscular HGB Conc 36 g/dL (31-36); Mean Corpuscular Hemoglobin 32 pg (27-31); Mean Corpuscular Volume 90 fL (80-97); Mean Platelet Volume 10.6 fL (7.4-10.4); Platelet Count 89 10^3/uL (150-450); Red Blood Count 3.81 10^6 /uL (3.70-4.87); Red Cell Distribution Width 13 % (10-15); White Blood Count 7.9 10^3/uL (3.5-10.8)
[2020-05-18] MEDS: Cholecalciferol (VIT D3) 1,000 unit TAB PO SCH (09:11)
[2020-05-18] MEDS: Heparin 5000 UNITS/ML 1 mL VIAL SUBCUT SCH ×2 (09:11→21:56)
[2020-05-18] MEDS: LORazepam 2 mg VIAL 1 ml IV PUSH SCH ×2 (09:11→21:56)
[2020-05-18] MEDS: Ammonium Lactate 12% 1 APPLIC TUBE TOPICAL SCH ×2 (09:17→21:57)
[2020-05-18] MEDS: Fluticasone NASAL SPRAY 50MCG 16 gm SPRAY BTL INTRANASAL SCH (09:18)
[2020-05-18] MEDS: Benztropine 2 mg AMP 1 MG/ML 2 ml AMP IV SCH ×2 (09:30→22:13)
[2020-05-18] MEDS ORDERED: LORazepam 2 mg VIAL 1 ml IV PUSH SCH (11:00)
[2020-05-18] MEDS: TPN 24 HR with D10W 1000 ml BAG 1,000 ML, Amino Acid Infusion 10% 850 ML, Sterile Water... IV SCH (16:47)
[2020-05-19 06:51] LABS: ABS Eosinophils 0.3 10^3/ul (0-0.6); ABS Lymphocytes 1.4 10^3/ul (1.0-4.8); ABS Monocytes 0.9 10^3/ul (0-0.8); ABS Neutrophils 9.1 10^3/ul (1.5-7.7); Eosinophil % 2.2 %; Hematocrit 34 % (35-47); Hemoglobin 12.3 g/dL (12.0-16.0); Lymphocyte % 11.8 %; Mean Corpuscular HGB Conc 36 g/dL (31-36); Mean Corpuscular Hemoglobin 32 pg (27-31); Mean Corpuscular Volume 89 fL (80-97); Mean Platelet Volume 10.5 fL (7.4-10.4); Platelet Count 79 10^3/uL (150-450); Red Cell Distribution Width 12 % (10-15); White Blood Count 11.6 10^3/uL (3.5-10.8)
[2020-05-19 07:04] LABS: Albumin 3.7 g/dL (3.2-5.2); Albumin/Globulin Ratio 1.5 (1-3); BUN/Creatinine Ratio 20.9 (8-20); Calcium 9.8 mg/dL (8.6-10.3); EGFR African American 29.2 (>60); EGFR Non-African American 24.2 (>60); Globulin 2.5 g/dL (2-4); Potassium 3.9 mmol/L (3.5-5.0); Total Bilirubin 0.4 mg/dL (0.2-1.0); Total Protein 6.2 g/dL (6.4-8.9)
[2020-05-19] MEDS: Benztropine 2 mg AMP 1 MG/ML 2 ml AMP IV SCH ×3 (10:46→21:31)
[2020-05-19] MEDS: Cholecalciferol (VIT D3) 1,000 unit TAB PO SCH ×2 (11:12→11:28)
[2020-05-19] MEDS: Fluticasone NASAL SPRAY 50MCG 16 gm SPRAY BTL INTRANASAL SCH (11:12)
[2020-05-19] MEDS: LORazepam 2 mg VIAL 1 ml IV PUSH SCH ×2 (11:13→21:31)
[2020-05-19] MEDS: Heparin 5000 UNITS/ML 1 mL VIAL SUBCUT SCH ×2 (11:13→11:29)
[2020-05-19] MEDS: Ammonium Lactate 12% 1 APPLIC TUBE TOPICAL SCH ×2 (14:51→21:32)
[2020-05-19] MEDS: TPN 24 HR with D10W 1000 ml BAG 1,000 ML, Amino Acid Infusion 10% 850 ML, Sterile Water... IV SCH (17:30)
[2020-05-20 02:57] LABS: ABS Eosinophils 0.2 10^3/ul (0-0.6); ABS Lymphocytes 1.5 10^3/ul (1.0-4.8); ABS Monocytes 0.9 10^3/ul (0-0.8); ABS Neutrophils 8.4 10^3/ul (1.5-7.7); Eosinophil % 1.7 %; Hematocrit 35 % (35-47); Hemoglobin 12.1 g/dL (12.0-16.0); Lymphocyte % 13.5 %; Mean Corpuscular HGB Conc 35 g/dL (31-36); Mean Corpuscular Hemoglobin 32 pg (27-31); Mean Corpuscular Volume 90 fL (80-97); Mean Platelet Volume 10.7 fL (7.4-10.4); Platelet Count 85 10^3/uL (150-450); Red Blood Count 3.85 10^6 /uL (3.70-4.87); Red Cell Distribution Width 13 % (10-15); White Blood Count 10.9 10^3/uL (3.5-10.8)
[2020-05-20 05:39] LABS: BUN/Creatinine Ratio 22.5 (8-20); EGFR African American 28.1 (>60); EGFR Non-African American 23.3 (>60)
[2020-05-20 05:48] LABS: Potassium 4.4 mmol/L (3.5-5.0)
[2020-05-20] MEDS: Benztropine 2 mg AMP 1 MG/ML 2 ml AMP IV SCH ×3 (07:53→21:44)
[2020-05-20] MEDS: Ammonium Lactate 12% 1 APPLIC TUBE TOPICAL SCH ×2 (07:59→21:47)
[2020-05-20] MEDS: Fluticasone NASAL SPRAY 50MCG 16 gm SPRAY BTL INTRANASAL SCH (10:47)
[2020-05-20] MEDS: Cholecalciferol (VIT D3) 1,000 unit TAB PO SCH (10:54)
[2020-05-21] MEDS: Benztropine 2 mg AMP 1 MG/ML 2 ml AMP IV SCH ×3 (10:05→19:46)
[2020-05-21] MEDS: Ammonium Lactate 12% 1 APPLIC TUBE TOPICAL SCH ×2 (11:08→19:47)
[2020-05-21] MEDS: Cholecalciferol (VIT D3) 1,000 unit TAB PO SCH (11:08)
[2020-05-21] MEDS: Fluticasone NASAL SPRAY 50MCG 16 gm SPRAY BTL INTRANASAL SCH (12:36)
[2020-05-21 13:33] LABS: ABS Eosinophils 0.3 10^3/ul (0-0.6); ABS Lymphocytes 1.4 10^3/ul (1.0-4.8); ABS Monocytes 0.9 10^3/ul (0-0.8); Eosinophil % 2.2 %; Hematocrit 35 % (35-47); Hemoglobin 12.2 g/dL (12.0-16.0); Lymphocyte % 12.3 %; Mean Corpuscular HGB Conc 35 g/dL (31-36); Mean Corpuscular Hemoglobin 31 pg (27-31); Mean Corpuscular Volume 90 fL (80-97); Mean Platelet Volume 11.1 fL (7.4-10.4); Platelet Count 78 10^3/uL (150-450); Red Cell Distribution Width 13 % (10-15); White Blood Count 11.7 10^3/uL (3.5-10.8)
[2020-05-21 13:40] LABS: BUN/Creatinine Ratio 22.5 (8-20); Calcium 9.9 mg/dL (8.6-10.3); EGFR African American 28.1 (>60); EGFR Non-African American 23.3 (>60); Potassium 4.5 mmol/L (3.5-5.0)
[2020-05-22] MEDS: Fluticasone NASAL SPRAY 50MCG 16 gm SPRAY BTL INTRANASAL SCH (08:13)
[2020-05-22] MEDS: Benztropine 2 mg AMP 1 MG/ML 2 ml AMP IV SCH ×3 (08:15→20:58)
[2020-05-22] MEDS: Cholecalciferol (VIT D3) 1,000 unit TAB PO SCH (08:16)
[2020-05-22] MEDS: Ammonium Lactate 12% 1 APPLIC TUBE TOPICAL SCH ×2 (08:17→20:58)
[2020-05-22 09:15] LABS: ABS Eosinophils 0.3 10^3/ul (0-0.6); ABS Lymphocytes 1.5 10^3/ul (1.0-4.8); ABS Monocytes 1.3 10^3/ul (0-0.8); ABS Neutrophils 8.7 10^3/ul (1.5-7.7); Eosinophil % 2.4 %; Hematocrit 35 % (35-47); Hemoglobin 12.2 g/dL (12.0-16.0); Lymphocyte % 12.8 %; Mean Corpuscular HGB Conc 35 g/dL (31-36); Mean Corpuscular Hemoglobin 31 pg (27-31); Mean Corpuscular Volume 89 fL (80-97); Mean Platelet Volume 11.4 fL (7.4-10.4); Platelet Count 87 10^3/uL (150-450); Red Blood Count 3.96 10^6 /uL (3.70-4.87); Red Cell Distribution Width 13 % (10-15); White Blood Count 11.8 10^3/uL (3.5-10.8)
[2020-05-22 09:24] LABS: BUN/Creatinine Ratio 20.2 (8-20); EGFR African American 27.4 (>60); EGFR Non-African American 22.6 (>60); Potassium 4.3 mmol/L (3.5-5.0)
[2020-05-23 06:39] LABS: Hematocrit 35 % (35-47); Hemoglobin 12.3 g/dL (12.0-16.0); Mean Corpuscular HGB Conc 35 g/dL (31-36); Mean Corpuscular Hemoglobin 31 pg (27-31); Mean Corpuscular Volume 90 fL (80-97); Mean Platelet Volume 11.7 fL (7.4-10.4); Platelet Count 112 10^3/uL (150-450); Red Blood Count 3.92 10^6 /uL (3.70-4.87); Red Cell Distribution Width 13 % (10-15); White Blood Count 13.6 10^3/uL (3.5-10.8)
[2020-05-23 06:47] LABS: Albumin 4.1 g/dL (3.2-5.2); Albumin/Globulin Ratio 1.4 (1-3); BUN/Creatinine Ratio 19.3 (8-20); EGFR African American 27.4 (>60); EGFR Non-African American 22.6 (>60); Globulin 2.9 g/dL (2-4); Potassium 4.2 mmol/L (3.5-5.0); Total Bilirubin 0.6 mg/dL (0.2-1.0)
[2020-05-23 06:48] LABS: ABS Eosinophils 0.3 10^3/ul (0-0.6); ABS Lymphocytes 1.8 10^3/ul (1.0-4.8); ABS Monocytes 1.6 10^3/ul (0-0.8); ABS Neutrophils 9.9 10^3/ul (1.5-7.7); Eosinophil % 2.1 %; Lymphocyte % 13.3 %
[2020-05-23] MEDS: Fluticasone NASAL SPRAY 50MCG 16 gm SPRAY BTL INTRANASAL SCH (08:44)
[2020-05-23] MEDS: Cholecalciferol (VIT D3) 1,000 unit TAB PO SCH (08:45)
[2020-05-23] MEDS: Ammonium Lactate 12% 1 APPLIC TUBE TOPICAL SCH ×2 (08:45→20:35)
[2020-05-23] MEDS: Benztropine 2 mg AMP 1 MG/ML 2 ml AMP IV SCH ×2 (08:46→20:35)
[2020-05-23] MEDS ORDERED: NS 0.9% IV ONE (11:45)
[2020-05-23] MEDS ORDERED: Cefepime 1 GM in NS 0.9% 50 ML 50 ML IVPB SCH (12:00)
[2020-05-23] MEDS ORDERED: NS 0.9% IV SCH (12:00)
[2020-05-23 12:07] LABS: Urine Appearance Cloudy; Urine Bilirubin Negative (Negative); Urine Blood Negative (Negative); Urine Color Yellow; Urine Glucose Negative (Negative); Urine Ketones Negative (Negative); Urine Nitrite Negative (Negative); Urine Protein Negative (Negative); Urine Specific Gravity 1.005 (1.010-1.030); Urine Urobilinogen Negative (Negative)
[2020-05-23 12:13] LABS: Urine Bacteria 1+ (Absent); Urine Red Blood Cell Absent (Absent); Urine Squamous Epithelial Cell Present (Absent); Urine White Blood Cell 3+(>20/hpf) (Absent)
[2020-05-23 12:21] LABS: ABS Basophils 0.1 10^3/ul (0-0.2); ABS Eosinophils 0.2 10^3/ul (0-0.6); ABS Lymphocytes 1.4 10^3/ul (1.0-4.8); ABS Monocytes 1.3 10^3/ul (0-0.8); ABS Neutrophils 7.9 10^3/ul (1.5-7.7); Eosinophil % 1.8 %; Hematocrit 34 % (35-47); Lymphocyte % 13.2 %; Mean Corpuscular HGB Conc 35 g/dL (31-36); Mean Corpuscular Hemoglobin 31 pg (27-31); Mean Corpuscular Volume 90 fL (80-97); Mean Platelet Volume 11.4 fL (7.4-10.4); Platelet Count 113 10^3/uL (150-450); Red Blood Count 3.84 10^6 /uL (3.70-4.87); Red Cell Distribution Width 13 % (10-15); White Blood Count 10.9 10^3/uL (3.5-10.8)
[2020-05-23] MEDS: cefTRIAXone 1 gm/50 mL NS BAG 1 GM/50 ML BAG IVPB SCH (12:24)
[2020-05-23 12:39] LABS: Albumin 3.9 g/dL (3.2-5.2); Albumin/Globulin Ratio 1.3 (1-3); BUN/Creatinine Ratio 19.6 (8-20); Calcium 9.8 mg/dL (8.6-10.3); EGFR African American 25.7 (>60); EGFR Non-African American 21.3 (>60); Globulin 2.9 g/dL (2-4); Potassium 4.5 mmol/L (3.5-5.0); Total Bilirubin 0.5 mg/dL (0.2-1.0); Total Protein 6.8 g/dL (6.4-8.9)
[2020-05-23] MEDS: NS 0.9% 1000 ml BAG 1,000 ML IV SCH (14:15)
[2020-05-24] MEDS: NS 0.9% 1000 ml BAG 1,000 ML IV SCH (02:28)
[2020-05-24 07:13] LABS: ABS Eosinophils 0.2 10^3/ul (0-0.6); ABS Lymphocytes 1.9 10^3/ul (1.0-4.8); ABS Monocytes 0.7 10^3/ul (0-0.8); ABS Neutrophils 3.9 10^3/ul (1.5-7.7); Eosinophil % 3.1 %; Hematocrit 28 % (35-47); Hemoglobin 9.9 g/dL (12.0-16.0); Lymphocyte % 28.2 %; Mean Corpuscular HGB Conc 35 g/dL (31-36); Mean Corpuscular Hemoglobin 32 pg (27-31); Mean Corpuscular Volume 91 fL (80-97); Mean Platelet Volume 10.8 fL (7.4-10.4); Nucleated Red Blood Cells % 0.1; Platelet Count 88 10^3/uL (150-450); Red Blood Count 3.11 10^6 /uL (3.70-4.87); Red Cell Distribution Width 13 % (10-15); White Blood Count 6.9 10^3/uL (3.5-10.8)
[2020-05-24 07:26] LABS: BUN/Creatinine Ratio 21.7 (8-20); Calcium 8.7 mg/dL (8.6-10.3); EGFR African American 29.7 (>60); EGFR Non-African American 24.6 (>60); Potassium 4.6 mmol/L (3.5-5.0)
[2020-05-24] MEDS: Cholecalciferol (VIT D3) 1,000 unit TAB PO SCH (09:42)
[2020-05-24] MEDS: Fluticasone NASAL SPRAY 50MCG 16 gm SPRAY BTL INTRANASAL SCH (09:44)
[2020-05-24] MEDS: Benztropine 2 mg AMP 1 MG/ML 2 ml AMP IV SCH ×2 (09:46→21:41)
[2020-05-24] MEDS: Ammonium Lactate 12% 1 APPLIC TUBE TOPICAL SCH ×2 (09:55→22:21)
[2020-05-24] MEDS: cefTRIAXone 1 gm/50 mL NS BAG 1 GM/50 ML BAG IVPB SCH (11:41)
[2020-05-24] MEDS: D5W 1000 ml BAG 1,000 ML IV SCH (14:53)
[2020-05-24 21:20] LABS: BUN/Creatinine Ratio 18.8 (8-20); Calcium 8.9 mg/dL (8.6-10.3); EGFR African American 32.9 (>60); EGFR Non-African American 27.2 (>60); Potassium 4.3 mmol/L (3.5-5.0)
[2020-05-25] MEDS: D5W 1000 ml BAG 1,000 ML IV SCH (04:52)
[2020-05-25 06:10] LABS: ABS Eosinophils 0.2 10^3/ul (0-0.6); ABS Lymphocytes 1.5 10^3/ul (1.0-4.8); ABS Monocytes 0.9 10^3/ul (0-0.8); ABS Neutrophils 5.1 10^3/ul (1.5-7.7); Eosinophil % 3.1 %; Hematocrit 29 % (35-47); Hemoglobin 10.3 g/dL (12.0-16.0); Lymphocyte % 19.8 %; Mean Corpuscular HGB Conc 36 g/dL (31-36); Mean Corpuscular Hemoglobin 33 pg (27-31); Mean Corpuscular Volume 90 fL (80-97); Mean Platelet Volume 10.1 fL (7.4-10.4); Platelet Count 98 10^3/uL (150-450); Red Blood Count 3.17 10^6 /uL (3.70-4.87); Red Cell Distribution Width 13 % (10-15); White Blood Count 7.8 10^3/uL (3.5-10.8)
[2020-05-25 06:21] LABS: BUN/Creatinine Ratio 17.7 (8-20); Calcium 9.1 mg/dL (8.6-10.3); EGFR African American 32.9 (>60); EGFR Non-African American 27.2 (>60); Potassium 4.4 mmol/L (3.5-5.0)
[2020-05-25] MEDS: Cholecalciferol (VIT D3) 1,000 unit TAB PO SCH (10:53)
[2020-05-25] MEDS: Ammonium Lactate 12% 1 APPLIC TUBE TOPICAL SCH ×2 (10:54→21:00)
[2020-05-25] MEDS: Benztropine 2 mg AMP 1 MG/ML 2 ml AMP IV SCH ×2 (10:56→21:00)
[2020-05-25] MEDS: Fluticasone NASAL SPRAY 50MCG 16 gm SPRAY BTL INTRANASAL SCH (11:40)
[2020-05-25] MEDS: cefTRIAXone 1 gm/50 mL NS BAG 1 GM/50 ML BAG IVPB SCH (11:45)
[2020-05-26 06:59] LABS: BUN/Creatinine Ratio 15.4 (8-20); Calcium 9.8 mg/dL (8.6-10.3); EGFR African American 28.9 (>60); EGFR Non-African American 23.9 (>60); Potassium 4.6 mmol/L (3.5-5.0)
[2020-05-26] MEDS: Cholecalciferol (VIT D3) 1,000 unit TAB PO SCH (08:28)
[2020-05-26] MEDS: Fluticasone NASAL SPRAY 50MCG 16 gm SPRAY BTL INTRANASAL SCH (08:30)
[2020-05-26] MEDS: Ammonium Lactate 12% 1 APPLIC TUBE TOPICAL SCH ×2 (08:32→22:19)
[2020-05-26] MEDS: Benztropine 2 mg AMP 1 MG/ML 2 ml AMP IV SCH ×2 (08:32→22:06)
[2020-05-27] MEDS: Benztropine 2 mg AMP 1 MG/ML 2 ml AMP IV SCH (10:12)
[2020-05-27] MEDS: Cholecalciferol (VIT D3) 1,000 unit TAB PO SCH (10:13)
[2020-05-27] MEDS: Ammonium Lactate 12% 1 APPLIC TUBE TOPICAL SCH ×2 (14:57→20:18)
[2020-05-27] MEDS: Fluticasone NASAL SPRAY 50MCG 16 gm SPRAY BTL INTRANASAL SCH (14:57)
[2020-05-28] MEDS: Cholecalciferol (VIT D3) 1,000 unit TAB PO SCH (09:19)
[2020-05-28] MEDS: Ammonium Lactate 12% 1 APPLIC TUBE TOPICAL SCH ×2 (09:28→21:00)
[2020-05-28] MEDS: Fluticasone NASAL SPRAY 50MCG 16 gm SPRAY BTL INTRANASAL SCH (09:28)
[2020-05-29] MEDS: Fluticasone NASAL SPRAY 50MCG 16 gm SPRAY BTL INTRANASAL SCH (09:43)
[2020-05-29] MEDS: Ammonium Lactate 12% 1 APPLIC TUBE TOPICAL SCH ×2 (09:43→21:48)
[2020-05-29] MEDS: Cholecalciferol (VIT D3) 1,000 unit TAB PO SCH (12:06)
[2020-05-30] MEDS: Cholecalciferol (VIT D3) 1,000 unit TAB PO SCH (12:14)
[2020-05-30] MEDS: Fluticasone NASAL SPRAY 50MCG 16 gm SPRAY BTL INTRANASAL SCH (12:35)
[2020-05-30] MEDS: Ammonium Lactate 12% 1 APPLIC TUBE TOPICAL SCH ×2 (12:35→21:51)
[2020-05-31] MEDS: Cholecalciferol (VIT D3) 1,000 unit TAB PO SCH (09:10)
[2020-05-31] MEDS: Fluticasone NASAL SPRAY 50MCG 16 gm SPRAY BTL INTRANASAL SCH (09:25)
[2020-05-31] MEDS: Ammonium Lactate 12% 1 APPLIC TUBE TOPICAL SCH ×2 (14:54→21:05)
[2020-06-01] MEDS: Ammonium Lactate 12% 1 APPLIC TUBE TOPICAL SCH (09:17)
[2020-06-01] MEDS: Cholecalciferol (VIT D3) 1,000 unit TAB PO SCH (09:17)
[2020-06-01] MEDS: Fluticasone NASAL SPRAY 50MCG 16 gm SPRAY BTL INTRANASAL SCH (09:29)
[2020-06-02] MEDS: Cholecalciferol (VIT D3) 1,000 unit TAB PO SCH (10:38)
[2020-06-02] MEDS: Fluticasone NASAL SPRAY 50MCG 16 gm SPRAY BTL INTRANASAL SCH (10:40)
[2020-06-03] MEDS: Fluticasone NASAL SPRAY 50MCG 16 gm SPRAY BTL INTRANASAL SCH (10:04)
[2020-06-03] MEDS: Cholecalciferol (VIT D3) 1,000 unit TAB PO SCH (10:06)
[2020-06-04] MEDS: Fluticasone NASAL SPRAY 50MCG 16 gm SPRAY BTL INTRANASAL SCH (11:00)
[2020-06-04] MEDS: Cholecalciferol (VIT D3) 1,000 unit TAB PO SCH (11:00)
[2020-06-05] MEDS: Cholecalciferol (VIT D3) 1,000 unit TAB PO SCH (09:17)
[2020-06-05] MEDS: Fluticasone NASAL SPRAY 50MCG 16 gm SPRAY BTL INTRANASAL SCH (09:20)
[2020-06-06] MEDS: Cholecalciferol (VIT D3) 1,000 unit TAB PO SCH (09:33)
[2020-06-06] MEDS: Fluticasone NASAL SPRAY 50MCG 16 gm SPRAY BTL INTRANASAL SCH (09:33)
[2020-06-07] MEDS: Cholecalciferol (VIT D3) 1,000 unit TAB PO SCH (08:40)
[2020-06-07] MEDS: Fluticasone NASAL SPRAY 50MCG 16 gm SPRAY BTL INTRANASAL SCH (08:42)
[2020-06-08] MEDS: Fluticasone NASAL SPRAY 50MCG 16 gm SPRAY BTL INTRANASAL SCH ×2 (08:51→08:57)
[2020-06-08] MEDS: Cholecalciferol (VIT D3) 1,000 unit TAB PO SCH (08:51)
[2020-06-09] MEDS: Cholecalciferol (VIT D3) 1,000 unit TAB PO SCH (09:13)
[2020-06-09] MEDS: Fluticasone NASAL SPRAY 50MCG 16 gm SPRAY BTL INTRANASAL SCH (09:43)
[2020-06-10] MEDS: Cholecalciferol (VIT D3) 1,000 unit TAB PO SCH (08:23)
[2020-06-10] MEDS: Fluticasone NASAL SPRAY 50MCG 16 gm SPRAY BTL INTRANASAL SCH (08:24)
[2020-06-11] MEDS: Cholecalciferol (VIT D3) 1,000 unit TAB PO SCH (08:49)
[2020-06-11] MEDS: Fluticasone NASAL SPRAY 50MCG 16 gm SPRAY BTL INTRANASAL SCH (08:54)
[2020-06-12] MEDS: Cholecalciferol (VIT D3) 1,000 unit TAB PO SCH (08:57)
[2020-06-12] MEDS: Fluticasone NASAL SPRAY 50MCG 16 gm SPRAY BTL INTRANASAL SCH (09:03)
[2020-06-13] MEDS: Cholecalciferol (VIT D3) 1,000 unit TAB PO SCH (08:41)
[2020-06-13] MEDS: Fluticasone NASAL SPRAY 50MCG 16 gm SPRAY BTL INTRANASAL SCH (08:50)
[2020-06-14] MEDS: Cholecalciferol (VIT D3) 1,000 unit TAB PO SCH (09:13)
[2020-06-14] MEDS: Fluticasone NASAL SPRAY 50MCG 16 gm SPRAY BTL INTRANASAL SCH (09:24)
[2020-06-15] MEDS: Fluticasone NASAL SPRAY 50MCG 16 gm SPRAY BTL INTRANASAL SCH (09:26)
[2020-06-15] MEDS: Cholecalciferol (VIT D3) 1,000 unit TAB PO SCH (09:26)
[2020-06-16] MEDS: Cholecalciferol (VIT D3) 1,000 unit TAB PO SCH (08:53)
[2020-06-16] MEDS: Fluticasone NASAL SPRAY 50MCG 16 gm SPRAY BTL INTRANASAL SCH (08:56)
[2020-06-17] MEDS: Cholecalciferol (VIT D3) 1,000 unit TAB PO SCH (08:46)
[2020-06-17] MEDS: Fluticasone NASAL SPRAY 50MCG 16 gm SPRAY BTL INTRANASAL SCH (08:48)
[2020-06-18] MEDS: Cholecalciferol (VIT D3) 1,000 unit TAB PO SCH (08:41)
[2020-06-18] MEDS: Fluticasone NASAL SPRAY 50MCG 16 gm SPRAY BTL INTRANASAL SCH (08:44)
[2020-06-19] MEDS: Cholecalciferol (VIT D3) 1,000 unit TAB PO SCH (08:37)
[2020-06-19] MEDS: Fluticasone NASAL SPRAY 50MCG 16 gm SPRAY BTL INTRANASAL SCH (08:39)
[2020-06-20] MEDS: Cholecalciferol (VIT D3) 1,000 unit TAB PO SCH (09:28)
[2020-06-20] MEDS: Fluticasone NASAL SPRAY 50MCG 16 gm SPRAY BTL INTRANASAL SCH (09:34)
[2020-06-21] MEDS: Cholecalciferol (VIT D3) 1,000 unit TAB PO SCH (09:42)
[2020-06-21] MEDS: Fluticasone NASAL SPRAY 50MCG 16 gm SPRAY BTL INTRANASAL SCH (09:49)
[2020-06-22] MEDS: Cholecalciferol (VIT D3) 1,000 unit TAB PO SCH (08:51)
[2020-06-22] MEDS: Fluticasone NASAL SPRAY 50MCG 16 gm SPRAY BTL INTRANASAL SCH (08:53)
[2020-06-22 09:01] LABS: ABS Eosinophils 0.2 10^3/ul (0-0.6); ABS Lymphocytes 1.6 10^3/ul (1.0-4.8); ABS Monocytes 0.6 10^3/ul (0-0.8); ABS Neutrophils 3.6 10^3/ul (1.5-7.7); Eosinophil % 2.6 %; Hematocrit 34 % (35-47); Hemoglobin 11.3 g/dL (12.0-16.0); Lymphocyte % 27.2 %; Mean Corpuscular HGB Conc 34 g/dL (31-36); Mean Corpuscular Hemoglobin 31 pg (27-31); Mean Corpuscular Volume 92 fL (80-97); Mean Platelet Volume 9.7 fL (7.4-10.4); Platelet Count 128 10^3/uL (150-450); Red Blood Count 3.66 10^6 /uL (3.70-4.87); Red Cell Distribution Width 14 % (10-15)
[2020-06-22 09:14] LABS: Albumin 4.1 g/dL (3.2-5.2); Albumin/Globulin Ratio 1.4 (1-3); BUN/Creatinine Ratio 10.8 (8-20); Calcium 9.4 mg/dL (8.6-10.3); EGFR African American 22.4 (>60); EGFR Non-African American 18.5 (>60); HDL Cholesterol 41.3 mg/dL; Total Bilirubin 0.6 mg/dL (0.2-1.0); Total Protein 7.1 g/dL (6.4-8.9)
[2020-06-23] MEDS: Cholecalciferol (VIT D3) 1,000 unit TAB PO SCH (09:59)
[2020-06-23] MEDS: Fluticasone NASAL SPRAY 50MCG 16 gm SPRAY BTL INTRANASAL SCH (10:09)
[2020-06-24] MEDS: Cholecalciferol (VIT D3) 1,000 unit TAB PO SCH (08:52)
[2020-06-24] MEDS: Fluticasone NASAL SPRAY 50MCG 16 gm SPRAY BTL INTRANASAL SCH (09:47)
[2020-06-25] MEDS: Cholecalciferol (VIT D3) 1,000 unit TAB PO SCH (08:20)
[2020-06-25] MEDS: Fluticasone NASAL SPRAY 50MCG 16 gm SPRAY BTL INTRANASAL SCH (08:20)
[2020-06-26] MEDS: Fluticasone NASAL SPRAY 50MCG 16 gm SPRAY BTL INTRANASAL SCH (11:03)
[2020-06-26] MEDS: Cholecalciferol (VIT D3) 1,000 unit TAB PO SCH (11:03)
[2020-06-27 10:31] VITALS: BP 112/68
[2020-06-27] MEDS: Cholecalciferol (VIT D3) 1,000 unit TAB PO SCH (10:58)
[2020-06-27] MEDS: Fluticasone NASAL SPRAY 50MCG 16 gm SPRAY BTL INTRANASAL SCH (11:03)
== END 2020-06-27 15:07 | disposition home or self-care (01) | DRG 885 ==
LOC: ED 23:51 → BSU 04-29 03:10 → MED 05-14 15:00 → BSU 05-26 09:35
PROVIDERS: ADMIT Psychiatry & Neurology Addiction Psychiatry; ATTEND Psychiatry & Neurology Psychiatry

== ENCOUNTER 2020-11-11 15:03 | Inpatient (IN) ==
[2020-11-11 17:37] LABS: ABS Basophils 0.1 10^3/ul (0-0.2); ABS Eosinophils 0.2 10^3/ul (0-0.6); ABS Lymphocytes 2.2 10^3/ul (1.0-4.8); ABS Monocytes 0.6 10^3/ul (0-0.8); ABS Neutrophils 5.4 10^3/ul (1.5-7.7); Eosinophil % 2.2 %; Hematocrit 36 % (35-47); Hemoglobin 12.2 g/dL (12.0-16.0); Lymphocyte % 25.8 %; Mean Corpuscular HGB Conc 34 g/dL (31-36); Mean Corpuscular Hemoglobin 30 pg (27-31); Mean Corpuscular Volume 89 fL (80-97); Mean Platelet Volume 10.2 fL (7.4-10.4); Platelet Count 93 10^3/uL (150-450); Red Blood Count 4.01 10^6 /uL (3.70-4.87); Red Cell Distribution Width 13 % (10-15); White Blood Count 8.4 10^3/uL (3.5-10.8)
[2020-11-11 17:52] LABS: ALT 5 U/L (7-52); Albumin 4.5 g/dL (3.2-5.2); Albumin/Globulin Ratio 1.9 (1-3); Alkaline Phosphatase 64 U/L (34-104); BUN/Creatinine Ratio 10.9 (8-20); Blood Urea Nitrogen 31 mg/dL (6-24); CO2 Carbon Dioxide 17 mmol/L (22-32); Calcium 9.7 mg/dL (8.6-10.3); Chloride 111 mmol/L (101-111); EGFR African American 20.1 (>60); EGFR Non-African American 16.6 (>60); Globulin 2.4 g/dL (2-4); Glucose 128 mg/dL (70-100); Magnesium 2.1 mg/dL (1.9-2.7); Sodium 140 mmol/L (135-145); Total Protein 6.9 g/dL (6.4-8.9)
[2020-11-11 18:07] LABS: Acetaminophen < 15 mcg/mL; Alcohol, S < 10 mg/dL (<10); Salicylate < 2.50 mg/dL (<30)
[2020-11-11 18:08] LABS: Urine Appearance Cloudy; Urine Bilirubin Negative (Negative); Urine Blood 1+ (Negative); Urine Color Straw; Urine Glucose Negative (Negative); Urine Ketones Negative (Negative); Urine Nitrite Negative (Negative); Urine Protein Negative (Negative); Urine Specific Gravity 1.003 (1.010-1.030); Urine Urobilinogen Negative (Negative)
[2020-11-11 18:12] LABS: Urine Bacteria Absent (Absent); Urine Red Blood Cell Trace(0-2/hpf) (Absent); Urine Squamous Epithelial Cell Present (Absent); Urine White Blood Cell 1+(6-10/hpf) (Absent)
[2020-11-11 18:18] LABS: Anion Gap 12 mmol/L (2-11)
[2020-11-11 18:21] LABS: Urine Benzodiazepine Screen None Detected (None Detect); Urine Cannabinoids Screen None Detected (None Detect); Urine Opiates Screen None Detected (None Detect)
[2020-11-11 18:23] LABS: TSH Ultra Thyroid Stim Horm 2.72 mcIU/mL (0.34-5.60)
[2020-11-11] MEDS ORDERED: Al Hydrox/Mg Hydrox/Simet LIQ 30 ML UDC PO PRN (19:58)
[2020-11-11 20:56] LABS: Potassium Redraw 3.4 mmol/L (3.5-5.0)
[2020-11-12] MEDS: Vitamin THERAPEUTIC TAB PO SCH (09:21)
[2020-11-12] MEDS ORDERED: Senna TAB 8.6 mg TAB PO PRN (11:58)
[2020-11-13] MEDS: Vitamin THERAPEUTIC TAB PO SCH (08:54)
[2020-11-14] MEDS: Vitamin THERAPEUTIC TAB PO SCH (09:22)
[2020-11-15] MEDS: Vitamin THERAPEUTIC TAB PO SCH (10:00)
[2020-11-16 00:40] LABS: Clozapine 216 ng/mL (350-600); Clozapine & Norclozapine Level 428 ng/mL; Norclozapine 212 ng/mL
[2020-11-16] MEDS: Vitamin THERAPEUTIC TAB PO SCH (08:10)
[2020-11-16 09:33] VITALS: BP 123/90
== END 2020-11-16 13:49 | disposition home or self-care (01) | DRG 885 ==
LOC: ED 15:03 → BSU 19:59
PROVIDERS: ADMIT Psychiatry & Neurology Addiction Psychiatry; ATTEND Psychiatry & Neurology Psychiatry